=== PATIENT | male | born 2005 | race Caucasian/White ===

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

== ENCOUNTER 2024-08-15 10:46 | Emergency (ER) | payer OTHER ==
[~2024-08-15] VITALS: Ht 182.9 cm; Wt 95.6 kg
[~2024-08-15 10:46] MED LIST changes: +MELO7.5T7 PO
[2024-08-15 12:23] VITALS: BP 144/77; TEMP 97.9
[2024-08-15 12:24] VITALS: PULSE 83; RESP 18; O2SAT 98
--- NOTE | 2024-08-15 14:31 | ED.PDOC ---
History of Present Illness HPI Comments 19-year-old male, with a history of asthma, presents with shortness of breath, subjective fever, generalized body aches, and sore throat, today. Patient endorses on noticing blood in his mucus sputum, this morning, along with onset of other remaining symptoms. He states difficulty breathing being mild as well as reports having red spots on his legs and comp blue coloration to his knees. He reports no recent sick contact or any additional relevant a pertinent history. He denies any chest pain, nausea, vomiting, chills, unexplained weight loss, or other associated symptoms or modifying us at this time. Chief Complaint: Cough Time Seen by MD: 12:00 Primary Care Provider: JEANE Jones Notes: Nurses Notes, Medications, Allergies Allergies: Coded Allergies: Promethazine (Unverified Allergy, Unknown, 11/09/16) Uncoded Allergies: ENVIRONMENTlal (Allergy, Severe, 02/05/23) beans (Allergy, Severe, 02/05/23) Home Meds Active Scripts Meloxicam (Meloxicam) 7.5 Mg Tab, 1 TAB PO DAILY for 7 Days, #7 TAB 0 Refills Prov:DAYSI MEHTA SENIOR POLICY ANALYST 10/13/23 Ibuprofen Micronized (Ibuprofen) 600 Mg Tab, 1 TAB PO Q6HR, #20 TAB As needed for pain Prov:DONAVAN APONTE SENIOR POLICY ANALYST 07/15/23 Methylprednisolone (Medrol Dosepak) 4 Mg Martín, 4 MG PO UD, #21 TAB UAD Prov:VENESSA REZA 02/06/23 Tobramycin Sulfate (Tobrex) [address], 2 DROP OP QID, #5 DROP Prov:VENESSA REZA 02/06/23 Ciprofloxacin HCl (Ophth) (Ciprofloxacin Hydrochlori) 0.3 % Francine, 2 DROP OP QID, #5 ML Prov:VENESSA REZA 02/05/23 Information Source: Patient Mode of Arrival: Ambulatory Severity: Moderate Timing: Hours Duration: Since onset Prehospital treatment: None Past Medical History PAST MEDICAL HISTORY: Asthma Surgical History: Denies all surgeries Family History Family History: Reviewed,noncontributory to illness, Family hx of heart bhumi Social History Smoker: Non-Smoker Alcohol: Denies ETOH Use Drugs: Denies Drug Use Lives In: Home Constitutional: reports: fever EENTM: reports: throat pain Respiratory: reports: cough, hemoptysis, shortness of breath Musculoskeletal: reports: others (Generalized bodyaches) All Other Systems: Reviewed and Negative (Negative unless otherwise stated in HPI or above) Physical Exam General Appearance: No Apparent Distress, Normal HEENT: Normal ENT Inspection, Pharynx Normal, TMs Normal Neck: Full Range of Motion, Non-Tender, Normal, Normal Inspection Respiratory: Chest Non-Tender, Lungs Clear, No Accessory Muscle Use, No Respiratory Distress, Normal Breath Sounds Cardiovascular: No Edema, No JVD, No Murmur, No Gallop, Normal Peripheral Pulses, Regular Rate/Rhythm Breast Exam: Deferred Gastrointestinal: No Organomegaly, Non Tender, No Pulsatile Mass, Normal Bowel Sounds, Soft Genitalia: Deferred Pelvic: Deferred Rectal: Deferred Extremities: No calf tenderness, Normal capillary refill, Normal inspection, Normal range of motion, Non-tender, No pedal edema Musculoskeletal : Apperance: Normal Neurologic: Alert, email marketer II-XII nml as Tested, No Motor Deficits, Normal Affect, Normal Mood, No Sensory Deficits Cerebellar Function: Normal Reflexes: Normal Skin: Dry, Normal Color, Warm Lymphatic: No Adenopathy Was a procedure done? Was a procedure done?: No Differential Dx Considerations may include: Viral syndrome, URI, hemoptysis X-Ray, Labs, Meds, VS Vital Signs Date Time Temp Pulse Resp B/P (MAP) Pulse Ox O2 Delivery O2 Flow Rate FiO2 08/15/24 12:24 83 18 98 Room Air* 0 21 08/15/24 12:23 97.9 82 18 144/77 (99) 98 97.9 08/15/24 11:05 98.9 100 16 144/103 (117) 97 08/15/24 11:05 16 97 Room Air* 0 21 Time of 1ST Reevaluation: 12:15 Reevaluation 1ST: Unchanged Patient Education/Counseling: Diagnosis, Treatment Family Education/Counseling: No Family Present Departure 1 Departure Time of Disposition: 12:28 Impression: Primary Impression: Viral URI with cough Additional Impression: Hemoptysis Disposition: 01 HOME / SELF CARE / HOMELESS Condition: Stable Additional Instructions: Thank you for visiting our Emergency Room. I wish you full and complete recovery. Please follow the following instructions: 1. Take your medication bottles with you to EVERY DOCTOR'S VISIT (including your primary doctor). 2. Please follow up with your primary doctor in 2-3 days or sooner if symptoms do not improve. 3. Please read all the papers given to you at the time of the discharge so that you understand your condition better. 4. Please note that the emergency room visits are focused and not necessarily comprehensive. Therefore, it is possible that some occult medical conditions may go undiagnosed in the ER. 5. The emergency room visits are not and should not be thought of as replacement for regular visits with your primary doctor. 6. Therefore, it is absolutely critical that you follows up with your primary doctor on regular basis to make sure you receives a complete and comprehensive care. 7. I recommended the you take the hospital discharge papers to your primary care physician and other doctors' offices with you. 8. Go to your nearest emergency room if you think your condition gets worse or you think your condition is an emergency. Critical Care Note Critical Care Time?: No Stability Stability form required: No Heart Score Heart Score: Heart Score Response (Comments) Value History N/A 0 EKG N/A 0 Age N/A 0 Risk Factors N/A 0 Troponin N/A 0 Total 0 I personally scribed for DUNG COUCH MD ([email or web address]) on 08/15/24 at 14:31. Electronically submitted by David Garsia [email or web address]). DUNG COUCH MD Aug 15, 2024 14:31
== END 2024-08-15 12:28 | disposition home or self-care (01) ==
LOC: ER 10:46
DX: J06.9 Acute upper respiratory infection, unspecified (principal); B97.89 Other viral agents as the cause of diseases classified elsewhere; R05.9 Cough, unspecified; R04.2 Hemoptysis; J45.909 Unspecified asthma, uncomplicated; Z79.1 Long term (current) use of non-steroidal anti-inflammatories (NSAID); Z79.899 Other long term (current) drug therapy; Z88.8 Allergy status to other drugs, medicaments and biological substances

== ENCOUNTER 2024-08-28 07:37 | Inpatient (IN) | payer OTHER ==
[~2024-08-28] VITALS: Ht 182.9 cm; Wt 94.9 kg
[2024-08-28 08:11] LABS: Urine Bacteria None Seen /hpf (None Seen)
[2024-08-28 08:25] LABS: Urine Blood Negative /uL (Negative); Urine Clarity Turbid (Clear); Urine Color Yellow (Yellow); Urine Mucus MODERATE (None Seen); Urine Protein, UAD TRACE (Negative); Urine Specific Gravity 1.025 (1.001-1.035); Urine Squamous Epithelial Cell FEW /hpf (<5); Urine Urobilinogen Normal (Negative); Urine WBC 1 /hpf (0 - 3)
[2024-08-28] MEDS: IPRATROPIUM BROM 0.5 MG/2.5ML INH SOL NEB ONE (10:02)
[2024-08-28] MEDS: ALBUTEROL SULF 2.5 MG/0.5ML(0.5%) NEB SOLN NEB ONE (10:02)
[2024-08-28] MEDS: methylPREDNISolone SOD SUCC 125 MG/2 ML VL IV ONE (10:30)
--- NOTE | 2024-08-28 10:47 | DVH ---
CLINICAL INFORMATION: 19 years old, Male; shortness of breath. TECHNIQUE: Single AP portable chest radiograph was obtained. COMPARISON: CHEST PORTABLE on DOS: 05/27/20 FINDINGS: Lungs: Clear. Cardiac: Heart size is within normal limits. Pulmonary vasculature: Unremarkable. Mediastinum/renay: Unremarkable. Bones: No acute osseous abnormality identified. Other: No other significant findings. IMPRESSION: No evidence of acute disease in the chest.
--- NOTE | 2024-08-28 10:53 | ED.PDOC ---
History of Present Illness HPI Comments 19 y/o M presents with c/o abdominal and chest pain, nausea, vomiting, dizziness, shortness of breath, and bilateral leg cramping, today. Patient endorses on unprovoked onset of symptoms that has been persisting for the past 4x days. He comments on vomitus being dark brown in appearance, chest pain being intermittent, tight in quality, and localized to his right pectoral area, and his leg cramping localized to his calves. Patient also reports recent hospital visit for "spitting mucus" 2x weeks ago. He informs of no additional relevant or pertinent Hx, such as injuries, sick contact, or travel. He denies having any hematemesis, diarrhea, headache, fever, chills, or other associated symptoms or modifiers at time. Chief Complaint: Urinary Time Seen by MD: 09:30 Primary Care Provider: JEANE Jones Notes: Nurses Notes, Medications, Allergies Allergies: Coded Allergies: Promethazine (Unverified Allergy, Unknown, 11/09/16) Uncoded Allergies: ENVIRONMENTlal (Allergy, Severe, 02/05/23) beans (Allergy, Severe, 02/05/23) Home Meds Active Scripts Meloxicam (Meloxicam) 7.5 Mg Tab, 1 TAB PO DAILY for 7 Days, #7 TAB 0 Refills Prov:DAYSI MEHTA SAW REPAIRER 10/13/23 Ibuprofen Micronized (Ibuprofen) 600 Mg Tab, 1 TAB PO Q6HR, #20 TAB As needed for pain Prov:DONAVAN APONTE SAW REPAIRER 07/15/23 Methylprednisolone (Medrol Dosepak) 4 Mg Martín, 4 MG PO UD, #21 TAB UAD Prov:VENESSA REZA 02/06/23 Tobramycin Sulfate (Tobrex) [address], 2 DROP OP QID, #5 DROP Prov:VENESSA REZA 02/06/23 Ciprofloxacin HCl (Ophth) (Ciprofloxacin Hydrochlori) 0.3 % Francine, 2 DROP OP QID, #5 ML Prov:VENESSA REZA 02/05/23 Information Source: Patient Mode of Arrival: Ambulatory Severity: Moderate Timing: Days Duration: Since onset Prehospital treatment: None Past Medical History PAST MEDICAL HISTORY: Asthma Surgical History: Denies all surgeries Family History Family History: Reviewed,noncontributory to illness, Family hx of heart bhumi Social History Smoker: Non-Smoker Alcohol: Denies ETOH Use Drugs: Denies Drug Use Lives In: Home Respiratory: reports: shortness of breath Gastrointestinal: reports: abdominal pain, nausea, vomiting Neurological: reports: dizziness Musculoskeletal: reports: others (right chest wall pain ) All Other Systems: Reviewed and Negative (negative unless otherwise stated above or in HPI) Physical Exam General Appearance: Moderate Distress HEENT: Normal ENT Inspection, Pharynx Normal, TMs Normal Neck: Full Range of Motion, Non-Tender, Normal, Normal Inspection Respiratory: Wheezing Cardiovascular: No Edema, No JVD, No Murmur, No Gallop, Normal Peripheral Pulses, Regular Rate/Rhythm Breast Exam: Deferred Gastrointestinal: Diffuse, Soft Genitalia: Deferred Pelvic: Deferred Rectal: Deferred Extremities: No calf tenderness, Normal capillary refill, Normal inspection, Normal range of motion, Non-tender, No pedal edema Musculoskeletal : Apperance: Normal Neurologic: Alert, six sigma project manager II-XII nml as Tested, No Motor Deficits, Normal Affect, Normal Mood, No Sensory Deficits Cerebellar Function: Normal Reflexes: Normal Skin: Dry, Normal Color, Warm Peripheral Pulses: 3+ Radial (R), 3+ Radial (L) Lymphatic: No Adenopathy Was a procedure done? Was a procedure done?: No Differential Dx Considerations may include: viral syndrome, musculoskeletal pain angina, costochondritis, pericarditis, gastritis, gastroenteritis, spoiled food, anxiety X-Ray, Labs, Meds, VS Vital Signs Date Time Temp Pulse Resp B/P (MAP) Pulse Ox O2 Delivery O2 Flow Rate FiO2 08/28/24 13:15 97.8 80 18 143/92 (109) 98 97.8 08/28/24 13:15 80 18 98 Room Air 08/28/24 11:58 78 16 100 Room Air 08/28/24 10:47 78 16 131/83 (99) 100 08/28/24 10:06 14 98 Room Air* 0 21 08/28/24 07:48 98.5 88 18 143/71 (95) 96 Lab Test 08/28/24 13:30 08/28/24 10:19 08/28/24 07:45 Range/Units White Blood Count 11.2 H 4.4-10.8 10^3/uL Red Blood Count 5.15 4.5-5.90 10^6/uL Hemoglobin 15.6 13.5-17.5 g/dL Hematocrit 47.0 41.0-53.0 % Mean Corpuscular Volume 91.3 80.0-100.0 fL Mean Corpuscular Hemoglobin 30.2 28.0-32.0 pg Mean Corpuscular Hemoglobin Concent 33.1 32.0-36.0 g/dL Red Cell Distribution Width 13.4 11.8-14.3 % Platelet Count 270 140-450 10^3/uL Mean Platelet Volume 7.7 6.9-10.8 fL Neutrophils (%) (Auto) 94.1 H 37.0-80.0 % Lymphocytes (%) (Auto) 4.9 L 10.0-50.0 % Monocytes (%) (Auto) 0.8 0.0-12.0 % Eosinophils (%) (Auto) 0.1 0.0-7.0 % Basophils (%) (Auto) 0.1 0.0-2.0 % Neutrophils # (Auto) 10.5 H 1.6-8.6 10 ^3/uL Lymphocytes # (Auto) 0.5 0.4-5.4 10 ^3/uL Monocytes # (Auto) 0.1 0-1.3 10 ^3/uL Eosinophils # (Auto) 0 0-0.8 10 ^3/uL Basophils # (Auto) 0 0-0.2 10 ^3/uL Nucleated Red Blood Cells 0.0 % Sodium Level 139 136-145 mmol/L Potassium Level 3.9 3.5-5.1 mmol/L Chloride Level 107 98-107 mmol/L Carbon Dioxide Level 24 20-31 mmol/L Anion Gap 8 5-15 Blood Urea Nitrogen 12 9-23 mg/dL Creatinine 1.04 0.700-1.30 mg/dL Glomerular Filtration Rate Calc 105 >90 mL/min BUN/Creatinine Ratio 11.5 10.0-20.0 Serum Glucose 104 74-106 mg/dL Calcium Level 9.9 8.7-10.4 mg/dL D-Dimer, Quantitative < 0.19 0.0-0.49 mg/L FEU Urine Color Yellow Yellow Urine Clarity Turbid H Clear Urine pH 8.0 5.0-9.0 Urine Specific [place] 1.025 1.001-1.035 Urine Protein Trace H Negative Urine Ketones Negative Negative Urine Blood Negative Negative /uL Urine Nitrite Negative Negative Urine Bilirubin Negative Negative Urine Urobilinogen Normal Negative mg/dL Urine Leukocyte Esterase Negative Negative /uL Urine RBC 1 0 - 3 /hpf Urine WBC 1 0 - 3 /hpf Urine Squamous Epithelial Cells Few <5 /hpf Urine Bacteria None seen None Seen /hpf Urine Mucus Moderate None Seen Urine Glucose Normal Normal mg/dL Current Medications Medications (Trade) Dose Ordered Sig/Jad Route Start Time Stop Time Status Last Admin Albuterol (Ventolin Medneb) 5 mg ONCE ONCE NEB 08/28/24 10:00 08/28/24 10:01 DC 08/28/24 10:02 Methylprednisolone Sodium Succinate (Solu Medrol) 125 mg ONCE ONCE IV 08/28/24 10:00 08/28/24 10:01 DC 08/28/24 10:30 Ipratropium [place] (Atrovent Medneb) 0.5 mg ONCE ONCE NEB 08/28/24 10:00 08/28/24 10:01 DC 08/28/24 10:02 Sodium Chloride 1,000 ml @ 1,000 mls/hr Q1H ONCE IV 08/28/24 12:30 08/28/24 13:29 DC 08/28/24 13:14 Ondansetron HCl (Zofran) 4 mg ONCE ONCE IV 08/28/24 12:30 08/28/24 12:31 DC 08/28/24 13:12 Ceftriaxone Sodium 50 ml @ 100 mls/hr ONCE ONCE IV 08/28/24 12:30 08/28/24 13:26 DC 08/28/24 13:11 Ketorolac Tromethamine (Toradol Injection) 30 mg ONCE ONCE IV 08/28/24 13:15 08/28/24 13:26 DC 08/28/24 13:12 Patient alert. Complaining of chest pain abdominal pain shortness a breath. Vitals stable. Answering all questions. Continues to have abdominal pain. Possible colitis. Establish intravenous access. Was given steroid. Was given breathing treatment. Reviewed his history. Explained to the patient. Continue cardiac monitoring. [facility] [id number] [place] [id number] Ph: [phone] DIAGNOSTIC IMAGING Diagnostic Imaging Report : [id number] Signed PATIENT: FRANKY JUNIOR ACCT: [id number] UNIT: [id number] : 2005 LOC: ER ROOM / BED: / AGE / SEX: 19 / M ADM STATUS: REG ER SERVICE 0948 ORDERING PHYSICIAN: ELMER KENYON MD PROCEDURE(s): CXRP - CHEST PORTABLE REASON: sob ORDER NUMBER(s): [id number], ACCESSION NUMBER(s): [id number] CLINICAL INFORMATION: 19 years old, Male; shortness of breath. TECHNIQUE: Single AP portable chest radiograph was obtained. COMPARISON: CHEST PORTABLE on DOS: 05/27/20 FINDINGS: Lungs: Clear. Cardiac: Heart size is within normal limits. Pulmonary vasculature: Unremarkable. Mediastinum/renay: Unremarkable. Bones: No acute osseous abnormality identified. Other: No other significant findings. IMPRESSION: No evidence of acute disease in the chest. ATED BY: ALEX COSTA DO DICTATED DATE/TIME: 08/28/241044 SIGNED BY: ALEX COSTA DO SIGNED DATE/TIME: 08/28/241044 CC: [place] [id number] Ph: [phone] DIAGNOSTIC IMAGING Diagnostic Imaging Report : [id number] Signed PATIENT: FRANKY JUNIOR ACCT: [id number] UNIT: [id number] : 2005 LOC: ER ROOM / BED: / AGE / SEX: 19 / M ADM STATUS: REG ER SERVICE 1216 ORDERING PHYSICIAN: ELMER KENYON MD PROCEDURE(s): ABPL - CT AB PEL WO CON-NO ORAL OR IV REASON: colitis ORDER NUMBER(s): [id number], ACCESSION NUMBER(s): [id number] Exam: CT CT AB PEL WO CON-NO ORAL OR IV History: colitis Comparison Study: None available at time of dictation. Technique: Multidetector spiral CT of the abdomen and pelvis was performed from lung bases to pubic symphysis. Imaging was performed without intravenous contrast. Coronal and sagittal multiplanar reformats were obtained from the ia data set by the technologist. Radiation Dose : 1. Abdomen/Pelvis: CTDIvol 10.7 mGy, DLP 627 mGy*cm. Findings: Evaluation of vasculature and solid organs is limited due to lack of intravenous contrast use. Lung Bases: Lung bases are clear. Visualized portions of the heart and pericardium are unremarkable. Liver: The liver is normal in size. No focal lesions. Gallbladder and Biliary Tree: The gallbladder is unremarkable No intrahepatic or extrahepatic biliary ductal dilatation. Spleen: Unremarkable Pancreas: The pancreas is grossly unremarkable. Adrenal Glands: Unremarkable Kidneys: Kidneys are unremarkable without calculi or hydronephrosis. GI tract: The stomach is grossly normal in appearance. No evidence of small bowel wall thickening or abnormal dilatation to suggest bowel obstruction. The colon is unremarkable. The appendix is visualized and is normal in caliber. Peritoneum/mesentery/retroperitoneum. No evidence of free intraperitoneal air. No ascites. No evidence of suspicious lymphadenopathy. Abdominal Wall: Unremarkable. Vasculature: The visualized abdominal aorta is normal in size and caliber. Evaluation of abdominal and pelvic vessels is limited due to lack of intravenous contrast. Urinary Bladder: Grossly unremarkable for degree of distention. Pelvic Organs: Unremarkable Musculoskeletal: No aggressive focal bony lesions, acute fractures or dislocation. IMPRESSION: 1. No acute abdominal or pelvic findings. ATED BY: PATRICIA JEAN BAPTISTE MD DICTATED DATE/TIME: 08/28/241335 SIGNED BY: PATRICIA JEAN BAPTISTE MD SIGNED DATE/TIME: 08/28/241335 CC: Time of 1ST Reevaluation: 10:00 Reevaluation 1ST: Unchanged Patient Education/Counseling: Diagnosis, Treatment Family Education/Counseling: No Family Present Additional Information I reviewed the following notes from patient's past medical encounters: ED physician documentation 08/15/24 The following tests were ordered, and results were reviewed by me: D-dimer, UA, CXR I reviewed and agreed with the following test results read by other providers: CXR I discussed treatment and results with medical personnel and: mother Departure 1 Departure Time of Disposition: 12:19 Impression: Primary Impression: Nonspecific colitis Disposition: ADMITTED INPATIENT Admit to: Med Surg Condition: Guarded Critical Care Note Critical Care Time?: No Stability Stability form required: No Heart Score Heart Score: Heart Score Response (Comments) Value History N/A 0 EKG N/A 0 Age N/A 0 Risk Factors N/A 0 Troponin N/A 0 Total 0 I personally scribed for ELMER KENYON MD ([email or web address]) on 08/28/24 at 10:53. Electronically submitted by David Garsia ([email or web address]). I personally scribed for ELMER KENYON MD ([email or web address]) on 08/28/24 at 17:04. Electronically submitted by David Garsia ([email or web address]). ELMER KENYON MD Aug 28, 2024 10:53
[2024-08-28] MEDS: MORPHINE SULFATE 4 MG/ML SYR/VIAL IV ONE (13:05)
[2024-08-28] MEDS: cefTRIAXone 1GM/50ML D5W 50 ML IV ONE (13:11)
[2024-08-28] MEDS: KETOROLAC TROMETH 30 MG/ML 1ML VIAL IV ONE (13:12)
[2024-08-28] MEDS: ONDANSETRON HCL 4 MG/2 ML VIAL IV ONE (13:12)
[2024-08-28] MEDS: SODIUM CHLORIDE 0.9% 1,000 ML IV ONE (13:14)
--- NOTE | 2024-08-28 13:39 | DVH ---
Exam: CT CT AB PEL WO CON-NO ORAL OR IV History: colitis Comparison Study: None available at time of dictation. Technique: Multidetector spiral CT of the abdomen and pelvis was performed from lung bases to pubic s ymphysis. Imaging was performed without intravenous contrast. Coronal and sagittal multiplanar refor mats were obtained from the axial data set by the technologist. Radiation Dose : 1. Abdomen/Pelvis: CTDIvol 10.7 mGy, DLP 627 mGy*cm. Findings: Evaluation of vasculature and solid organs is limited due to lack of intravenous contrast use. Lung Bases: Lung bases are clear. Visualized portions of the heart and pericardium are unremarkable. Liver: The liver is normal in size. No focal lesions. Gallbladder and Biliary Tree: The gallbladder is unremarkable No intrahepatic or extrahepatic bilia ry ductal dilatation. Spleen: Unremarkable Pancreas: The pancreas is grossly unremarkable. Adrenal Glands: Unremarkable Kidneys: Kidneys are unremarkable without calculi or hydronephrosis. GI tract: The stomach is grossly normal in appearance. No evidence of small bowel wall thickening or abnormal dilatation to suggest bowel obstruction. The colon is unremarkable. The appendix is visual ized and is normal in caliber. Peritoneum/mesentery/retroperitoneum. No evidence of free intraperitoneal air. No ascites. No evidenc e of suspicious lymphadenopathy. Abdominal Wall: Unremarkable. Vasculature: The visualized abdominal aorta is normal in size and caliber. Evaluation of abdominal a nd pelvic vessels is limited due to lack of intravenous contrast. Urinary Bladder: Grossly unremarkable for degree of distention. Pelvic Organs: Unremarkable Musculoskeletal: No aggressive focal bony lesions, acute fractures or dislocation. IMPRESSION: 1. No acute abdominal or pelvic findings.
[2024-08-28 13:55] LABS: Basophils # (auto) 0 10 ^3/uL (0-0.2); Basophils % (auto) 0.1 % (0.0-2.0); Eosinophils # (auto) 0 10 ^3/uL (0-0.8); Eosinophils % (auto) 0.1 % (0.0-7.0); Hemoglobin 15.6 g/dL (13.5-17.5); Lymphocytes # (auto) 0.5 10 ^3/uL (0.4-5.4); Lymphocytes % (auto) 4.9 % (10.0-50.0); Mean Corpuscular Hemoglobin 30.2 pg (28.0-32.0); Mean Corpuscular Hgb Conc. 33.1 g/dL (32.0-36.0); Mean Corpuscular Volume 91.3 fL (80.0-100.0); Monocytes # (auto) 0.1 10 ^3/uL (0-1.3); Monocytes % (auto) 0.8 % (0.0-12.0); Neutrophils # (auto) 10.5 10 ^3/uL (1.6-8.6); Neutrophils % (auto) 94.1 % (37.0-80.0); Platelet Count (auto) 270 10^3/uL (140-450); Red Blood Cells 5.15 10^6/uL (4.5-5.90); Red Cell Distribution Width 13.4 % (11.8-14.3); White Blood Cell 11.2 10^3/uL (4.4-10.8)
[2024-08-28 14:02] LABS: Potassium 3.9 mmol/L (3.5-5.1); Sodium 139 mmol/L (136-145)
[2024-08-28 14:03] LABS: Anion Gap 8 (5-15); Carbon Dioxide 24 mmol/L (20-31)
[2024-08-28 14:04] LABS: Calcium 9.9 mg/dL (8.7-10.4)
[2024-08-28 14:07] LABS: Chloride 107 mmol/L (98-107)
[2024-08-28 14:08] LABS: BUN/Creatinine Ratio 11.5 (10.0-20.0); Blood Urea Nitrogen 12 mg/dL (9-23); Glucose 104 mg/dL (74-106)
[2024-08-28] MEDS ORDERED: MORPHINE SULFATE INJ 2 MG/ml SYRG IV PRN (15:00)
--- NOTE | 2024-08-28 15:00 | DVHHP2 ---
History of Present Illness Reason for Visit: Abdominal pain History of Present Illness This 19-year-old male patient with past medical history of asthma, IBS, presented in the ED with a chief complaint of abdominal pain. The patient reports right upper quadrant abdominal pain with nausea and vomiting, unable to tolerate oral intake without vomiting started four days ago and has progressed for which prompted the patient to visit the emergency department. Past Medical History As stated in HPI Past Surgical History Denies Family History Reviewed, non-contributory to the management of this case. Past Social History The patient lives at home, denies smoking, alcohol or illicit drugs abuse. Review of Systems Constitutional: Yes: Malaise; No: Fever, Chills, Sweats, Weakness, Other Eyes: No: Pain, Vision change, Conjunctivae inflammation, Eyelid inflammation, Other, Redness ENT: No: Ear pain, Ear discharge, Nose pain, Nose discharge, Nose congestion, Mouth pain, Mouth swelling, Throat pain, Throat swelling, Other Respiratory: No: Cough, Dry, Shortness of breath, SOB with excertion, Wheezing, Hemoptysis, Pleuritic Pain, Sputum, Wheezing, Other Cardiovascular: No: Chest Pain, Palpitations, Orthopnea, Paroxysmal Noc. Dyspnea, Edema, Lt Headedness, Other Gastrointestinal: Nausea, Vomiting, Abdominal Pain; No: Diarrhea, Constipation, Melena, Hematochezia, Other Genitourinary: No Dysuria, No Frequency, No Incontinence, No Hematuria, No Retention, No Other Musculoskeletal: No: other, neck pain, shoulder pain, arm pain, back pain, hand pain, leg pain, foot pain Skin: No: Rash, Lesions, Jaundice, Bruising, Other Neurological: No: Weakness, Numbness, Incoordination, Change in speech, Confusion, Seizures, Other Allergies: Coded Allergies: Promethazine (Unverified Allergy, Unknown, 11/09/16) Uncoded Allergies: ENVIRONMENTlal (Allergy, Severe, 02/05/23) beans (Allergy, Severe, 02/05/23) Exam Vital Signs Vital Signs Date Time Temp Pulse Resp B/P (MAP) Pulse Ox O2 Delivery O2 Flow Rate FiO2 08/28/24 13:15 97.8 80 18 143/92 (109) 98 97.8 08/28/24 13:15 Room Air 08/28/24 10:06 0 21 General Appearance: Alert, Oriented X3, Cooperative, mild distress HEENT: Atraumatic, PERRLA, EOMI, Mucous membr. moist/pink Respiratory: Clear to auscultation, Normal air movement Cardiovascular: Regular rate, Normal S1, Normal S2 Abdominal: Normal bowel sounds, Soft, Other (Tenderness to right upper quadrant) Extremities: No clubbing, No cyanosis, No edema, Normal pulses, No tende rness/swelling Skin: No rashes, No breakdown, No significant lesion Neuro: Normal gait, Normal speech, Sensation intact Psych/Mental Status: Mental status NL Labs/Xrays Labs Test 08/28/24 13:30 08/28/24 10:19 08/28/24 07:45 Range/Units White Blood Count 11.2 H 4.4-10.8 10^3/uL Red Blood Count 5.15 4.5-5.90 10^6/uL Hemoglobin 15.6 13.5-17.5 g/dL Hematocrit 47.0 41.0-53.0 % Mean Corpuscular Volume 91.3 80.0-100.0 fL Mean Corpuscular Hemoglobin 30.2 28.0-32.0 pg Mean Corpuscular Hemoglobin Concent 33.1 32.0-36.0 g/dL Red Cell Distribution Width 13.4 11.8-14.3 % Platelet Count 270 140-450 10^3/uL Mean Platelet Volume 7.7 6.9-10.8 fL Neutrophils (%) (Auto) 94.1 H 37.0-80.0 % Lymphocytes (%) (Auto) 4.9 L 10.0-50.0 % Monocytes (%) (Auto) 0.8 0.0-12.0 % Eosinophils (%) (Auto) 0.1 0.0-7.0 % Basophils (%) (Auto) 0.1 0.0-2.0 % Neutrophils # (Auto) 10.5 H 1.6-8.6 10 ^3/uL Lymphocytes # (Auto) 0.5 0.4-5.4 10 ^3/uL Monocytes # (Auto) 0.1 0-1.3 10 ^3/uL Eosinophils # (Auto) 0 0-0.8 10 ^3/uL Basophils # (Auto) 0 0-0.2 10 ^3/uL Nucleated Red Blood Cells 0.0 % Sodium Level 139 136-145 mmol/L Potassium Level 3.9 3.5-5.1 mmol/L Chloride Level 107 98-107 mmol/L Carbon Dioxide Level 24 20-31 mmol/L Anion Gap 8 5-15 Blood Urea Nitrogen 12 9-23 mg/dL Creatinine 1.04 0.700-1.30 mg/dL Glomerular Filtration Rate Calc 105 >90 mL/min BUN/Creatinine Ratio 11.5 10.0-20.0 Serum Glucose 104 74-106 mg/dL Calcium Level 9.9 8.7-10.4 mg/dL D-Dimer, Quantitative < 0.19 0.0-0.49 mg/L FEU Urine Color Yellow Yellow Urine Clarity Turbid H Clear Urine pH 8.0 5.0-9.0 Urine Specific [place] 1.025 1.001-1.035 Urine Protein Trace H Negative Urine Ketones Negative Negative Urine Blood Negative Negative /uL Urine Nitrite Negative Negative Urine Bilirubin Negative Negative Urine Urobilinogen Normal Negative mg/dL Urine Leukocyte Esterase Negative Negative /uL Urine RBC 1 0 - 3 /hpf Urine WBC 1 0 - 3 /hpf Urine Squamous Epithelial Cells Few <5 /hpf Urine Bacteria None seen None Seen /hpf Urine Mucus Moderate None Seen Urine Glucose Normal Normal mg/dL PROCEDURE(s): ABPL - CT AB PEL WO CON-NO ORAL OR IV REASON: colitis ORDER NUMBER(s): [id number], ACCESSION NUMBER(s): [id number] Exam: CT CT AB PEL WO CON-NO ORAL OR IV History: colitis Comparison Study: None available at time of dictation. Technique: Multidetector spiral CT of the abdomen and pelvis was performed from lung bases to pubic symphysis. Imaging was performed without intravenous contrast. Coronal and sagittal multiplanar reformats were obtained from the axial data set by the technologist. Radiation Dose : 1. Abdomen/Pelvis: CTDIvol 10.7 mGy, DLP 627 mGy*cm. Findings: Evaluation of vasculature and solid organs is limited due to lack of intravenous contrast use. Lung Bases: Lung bases are clear. Visualized portions of the heart and p ericardium are unremarkable. Liver: The liver is normal in size. No focal lesions. Gallbladder and Biliary Tree: The gallbladder is unremarkable No intrahepatic or extrahepatic biliary ductal dilatation. Spleen: Unremarkable Pancreas: The pancreas is grossly unremarkable. Adrenal Glands: Unremarkable Kidneys: Kidneys are unremarkable without calculi or hydronephrosis. GI tract: The stomach is grossly normal in appearance. No evidence of small bowel wall thickening or abnormal dilatation to suggest bowel obstruction. The colon is unremarkable. The appendix is visualized and is normal in caliber. Peritoneum/mesentery/retroperitoneum. No evidence of free intraperitoneal air. No ascites. No evidence of suspicious lymphadenopathy. Abdominal Wall: Unremarkable. Vasculature: The visualized abdominal aorta is normal in size and caliber. Evaluation of abdominal and pelvic vessels is limited due to lack of intravenous contrast. Urinary Bladder: Grossly unremarkable for degree of distention. Pelvic Organs: Unremarkable Musculoskeletal: No aggressive focal bony lesions, acute fractures or dislocation. IMPRESSION: 1. No acute abdominal or pelvic findings. Assessment/Plan Assessment/Plan # acute abdominal pain # Rule out cholecystitis # nausea vomiting # hx of IBS Admit to medical unit Empiric antibiotics metronidazole Ultrasound gallbladder pending IV fluid Antiemetics # asthma Med neb prn # obesity Lifestyle modification counseled, with diet, regular exercise Medical plan discussed with patient Plan discussed with: Patient My Orders Orders - HOLLIS REN Procedure Category Date Status Time Admit ADMIT 08/28/24 Verified 14:58 Code Status CODE 08/28/24 Verified 14:58 0.9% Ns 1000 Ml PHA 08/28/24 Verified 15:00 Hydrocodone-Acet PHA 08/28/24 Verified 5/325mg Tab (Erskine 15:00 Ondansetron Hcl PHA 08/28/24 Verified (Zofran) 15:00 Complete Blood Count LAB 08/29/24 Verified 04:00 Comprehensive LAB 08/29/24 Verified Metabolic Panel 04:00 Condition: Fair DEBBIE 08/28/24 Verified 14:58 Acetaminophen Tablet PHA 08/28/24 Verified (Tylenol Tablet) 15:00 Clear Liq Diet DIET 08/28/24 Verified Dinner Morphine Sulfate PHA 08/28/24 Verified Injection 15:00 Date of Service: Aug 28, 2024 Billing Provider: HOLLIS REN Common Visit Codes: [id number] INP/OBS CARE (HIGH) HOLLIS REN Aug 28, 2024 15:00
[2024-08-28] MEDS: SODIUM CHLORIDE 0.9% 1,000 ML IV SCH (16:03)
[2024-08-28 16:30] VITALS: BP 143/92; PULSE 80; RESP 18; TEMP 97.8; O2SAT 98
[2024-08-28] MEDS ORDERED: ALBUTEROL SULF 2.5 MG/0.5ML(0.5%) NEB SOLN NEB PRN (16:30)
[2024-08-28] MEDS: ONDANSETRON HCL 4 MG/2 ML VIAL IV PRN (17:43)
--- NOTE | 2024-08-28 17:48 | DVH ---
Procedure: US GALLBLADDER Study Date and Requested Time: 08/28/2024 04:28 PM History: Right upper quadrant abdominal pain Comparison: CT abdomen and pelvis 08/28/2024 Technique: Multiple high resolution carcamo-scale images obtained of the right upper quadrant of the abd omen with color Doppler for evaluation of blood flow and vascularity as indicated. Findings: Liver normal in size, measuring 16 cm in length, with increased echogenicity and normal contours. No evidence of focal hepatic lesions, intrahepatic or extrahepatic ductal dilatation. Common bile duct m easures 0.4 cm in diameter. Sludge within the gallbladder. Otherwise gallbladder is unremarkable with no evidence of abnormal wa ll thickening, gallstones, or pericholecystic fluid. Negative sonographic Person's sign. Pancreas only partially visualized due to overlying bowel gas but is otherwise unremarkable. Right kidney measures 11.4 cm in length, with normal contours, echotexture, and cortical thickness. N o evidence of hydronephrosis, calculi, cystic or solid renal lesions. Partially visualized inferior vena cava unremarkable. Impression: Increased hepatic echogenicity which may be from hepatic disease/hepatic steatosis. Sludge within the gallbladder. Otherwise, the gallbladder is unremarkable.
[2024-08-28] MEDS: HYDROcodone-ACET 5/325MG TAB PO PRN (18:20)
[2024-08-28 21:00] VITALS: BP 139/80; PULSE 86; RESP 18; TEMP 97.6; O2SAT 96
[2024-08-28] MEDS: metroNIDAZOLE 500MG/100ML 100 ML IV SCH (22:30)
[2024-08-28] MEDS: ACETAMINOPHEN 325 MG TAB PO PRN (22:34)
[2024-08-28] MEDS ORDERED: MONT10TA23 PO (23:11)
[2024-08-28] MEDS ORDERED: OLOP0.2S14 OP (23:11)
[2024-08-28] MEDS ORDERED: ALBU108A5 INH (23:11)
[2024-08-28] MEDS ORDERED: LORA-483 PO (23:11)
[2024-08-29] VITALS (10 sets, daily range): BP systolic 111–127; BP diastolic 58–68; PULSE 62–73; RESP 16–20; TEMP 97.9–98.8; O2SAT 96–100
[2024-08-29 04:49] LABS: Basophils # (auto) 0 10 ^3/uL (0-0.2); Eosinophils # (auto) 0 10 ^3/uL (0-0.8); Eosinophils % (auto) 0.2 % (0.0-7.0); Hematocrit 44.3 % (41.0-53.0); Hemoglobin 14.9 g/dL (13.5-17.5); Lymphocytes # (auto) 1.8 10 ^3/uL (0.4-5.4); Lymphocytes % (auto) 12.7 % (10.0-50.0); Mean Corpuscular Hemoglobin 30.6 pg (28.0-32.0); Mean Corpuscular Hgb Conc. 33.5 g/dL (32.0-36.0); Mean Corpuscular Volume 91.2 fL (80.0-100.0); Monocytes # (auto) 1.1 10 ^3/uL (0-1.3); Monocytes % (auto) 7.5 % (0.0-12.0); Neutrophils # (auto) 11.4 10 ^3/uL (1.6-8.6); Neutrophils % (auto) 79.6 % (37.0-80.0); Platelet Count (auto) 275 10^3/uL (140-450); Red Blood Cells 4.86 10^6/uL (4.5-5.90); Red Cell Distribution Width 13.3 % (11.8-14.3); White Blood Cell 14.3 10^3/uL (4.4-10.8)
[2024-08-29 05:11] LABS: Alanine Aminotransferase 22 U/L (7-40); Albumin 4.6 g/dL (3.2-4.8); Alkaline Phosphatase 81 U/L (46-116); Anion Gap 10 (5-15); BUN/Creatinine Ratio 22.9 (10.0-20.0); Blood Urea Nitrogen 22 mg/dL (9-23); Calcium 10.4 mg/dL (8.7-10.4); Carbon Dioxide 23 mmol/L (20-31); Chloride 107 mmol/L (98-107); Glucose 100 mg/dL (74-106); Sodium 140 mmol/L (136-145)
[2024-08-29 05:12] LABS: Bilirubin, Total 0.7 mg/dL (0.2-1.0); Total Protein 7.5 g/dL (5.7-8.2)
[2024-08-29 05:22] LABS: Aspartate Aminotransferase 9 U/L (13-40)
--- NOTE | 2024-08-29 11:12 | DVHPN2 ---
Subjective Patient continues to report abdominal pain. Also states he has poor oral intake for the past several days, and continues to have nausea and vomiting. Reviewed: Care Plan, H&P, Labs, Medications Changes from previous H/P or p: No Changes General: Per HPI Eyes: No Pain, No Vision change, No Conjunctivae inflammation, No Eyelid inflammation, No Other, No Redness ENT: No Ear pain, No Ear discharge, No Nose pain, No Nose discharge, No Nose congestion, No Mouth pain, No Mouth swelling, No Throat pain, No Throat swelling, No Other Cardiovascular: No Chest Pain, No Palpitations, No Orthopnea, No Paroxysmal Noc. Dyspnea, No Edema, No Lt Headedness, No Other Respiratory: No Cough, No Dry, No Shortness of breath, No SOB with excertion, No Wheezing, No Hemoptysis, No Pleuritic Pain, No Sputum, No Other Gastrointestinal: Nausea, Vomiting, Abdominal Pain; No Diarrhea, No Constipation, No Melena, No Hematochezia, No Other Genitourinary: No Dysuria, No Frequency, No Incontinence, No Hematuria, No Retention, No Other Musculoskeletal: No other, No neck pain, No shoulder pain, No arm pain, No back pain, No hand pain, No leg pain, No foot pain Skin: No Rash, No Lesions, No Jaundice, No Bruising, No Other Objective Vitals Vital Signs Date Time Temp Pulse Resp B/P (MAP) Pulse Ox O2 Delivery O2 Flow Rate FiO2 08/29/24 10:00 98 Room Air* 0 21 08/29/24 08:10 98.1 73 16 113/58 (76) 98.1 Intake/Output Intake and Output 08/29/24 07:00 Intake Total 1550 ml Balance 1550 ml Intake IV Total 1550 ml General Appearance: Alert, Oriented X3, Cooperative, No acute distress HEENT: Atraumatic, PERRLA Lungs: Clear to auscultation, Normal air movement Cardiovascular: Normal S1, Normal S2 Abdomen: Other (Pain and left lower quadrant with light palpation.) Genitourinary: No Apparent Abnormalities Musculoskeletal: Normal sensory function, Normal motor function Neuro: Normal speech Psych/Mental Status: Mental status NL, Mood NL Medications Current Medications Medications Dose Ordered Sig/Jad Route Start Time Stop Time Status Last Admin Dose Admin Sodium Chloride 1,000 ml @ 100 mls/hr Q10H IV 08/28/24 15:00 08/28/24 21:46 100 MLS/HR Acetaminophen/ Hydrocodone Bitart 1 tab Q4HP PRN PO 08/28/24 15:00 08/28/24 18:20 1 TAB Ondansetron HCl 4 mg Q4HP PRN IV 08/28/24 15:00 08/29/24 10:56 4 MG Acetaminophen 650 mg Q6HP PRN PO 08/28/24 15:00 08/28/24 22:34 650 MG Morphine Sulfate 2 mg Q4HPRN PRN IV 08/28/24 15:00 Cancel Metronidazole 100 ml @ 100 mls/hr Q8HR IV 08/28/24 22:00 08/29/24 05:59 100 MLS/HR Albuterol 2.5 mg Q4HPRN PRN NEB 08/28/24 16:30 Laboratory Results Laboratory Tests 08/29/24 04:28 Chemistry Test 08/28/24 13:30 08/29/24 04:28 Calcium Level 9.9 mg/dL (8.7-10.4) 10.4 mg/dL (8.7-10.4) Albumin 4.6 g/dL (3.2-4.8) Total Protein 7.5 g/dL (5.7-8.2) LFT Test 08/29/24 04:28 Alanine Aminotransferase (ALT) 22 U/L (7-40) Alkaline Phosphatase 81 U/L (46-116) Aspartate Amino Transferase (AST) 9 U/L (13-40) L Total Bilirubin 0.7 mg/dL (0.2-1.0) Urinalysis Test 08/28/24 07:45 Urine Color Yellow (Yellow) Urine Clarity Turbid (Clear) H Urine pH 8.0 (5.0-9.0) Urine Specific [place] 1.025 (1.001-1.035) Urine Protein Trace (Negative) H Urine Ketones Negative (Negative) Urine Blood Negative /uL (Negative) Urine Nitrite Negative (Negative) Urine Bilirubin Negative (Negative) Urine Urobilinogen Normal mg/dL (Negative) Urine Leukocyte Esterase Negative /uL (Negative) Urine RBC 1 /hpf (0 - 3) Urine WBC 1 /hpf (0 - 3) Urine Squamous Epithelial Cells Few /hpf (<5) Urine Bacteria None seen /hpf (None Seen) Urine Mucus Moderate (None Seen) Urine Glucose Normal mg/dL (Normal) Labs and/or images reviewed: Labs reviewed by me, Image(s) reviewed by me Assessment/Plan Assessment/Plan Impression: -Intractable nausea and vomiting -abdominal pain -leukocytosis, rule out sepsis -history of IBS Plan: -change IV fluids to D5 NS at 100 mL/hr -antiemetics -UDS -continue Flagyl -continue clear liquid diet Total time spent with patient discussing and formulating plan of care: 35 minutes. This medical document was created using an electronic medical record system with [employer] dictation system. Although this document has been carefully reviewed, there may still be some phonetic and typographical errors. These areas are purely typographical due to imperfections of the software programs, and do not reflect any compromise in the patient's medical care. Plan discussed with: Patient, Other (RN) My Orders Orders - KENDRA BRADY NP Procedure Category Date Status Time Erythrocyte LAB 08/29/24 Verified Sedimentation Rate 11:07 C-Reactive Protein LAB 08/29/24 Verified 11:07 D5w/Sod Chlo 0.9% Ns PHA 08/29/24 Verified 11:15 Metoclopramide Tablet PHA 08/29/24 Verified (Reglan Tablet) 11:30 Date of Service: Aug 29, 2024 Billing Provider: KENDRA BRADY NP Common Visit Codes: [id number] INP/OBS CARE(HIGH) KENDRA BRADY NP Aug 29, 2024 11:12
[2024-08-29] MEDS: METOCLOPRAMIDE HCL 10 MG TAB PO SCH (12:14)
[2024-08-29 12:48] LABS: Erythrocyte Sedimentation Rate 4 mm/hr (0-20)
[2024-08-29] MEDS: D5W/SOD CHLO 0.9% 1,000 ML IV SCH (13:38)
[2024-08-29 18:03] LABS: Opiate Scree,Urine Neg (NEGATIVE)
[2024-08-29 18:06] LABS: Amphetamine Screen, Urine Neg (NEGATIVE); Barbiturate Scree,Urine Neg (NEGATIVE); Benzodiazephine Screen, Urine Neg (NEGATIVE); Cannabinoid Screen, Urine Neg (NEGATIVE); Cocaine Screen, Urine Neg (NEGATIVE); Phencyclidine Screen, Urine Neg (NEGATIVE)
[2024-08-30 05:03] VITALS: BP 116/81; PULSE 88; RESP 16; TEMP 97.8; O2SAT 95
[2024-08-30 07:07] VITALS: O2SAT 96
[2024-08-30 09:00] VITALS: BP 101/61; PULSE 75; RESP 18; TEMP 97.8; O2SAT 96
[2024-08-30 09:31] LABS: Basophils # (auto) 0 10 ^3/uL (0-0.2); Basophils % (auto) 0.5 % (0.0-2.0); Eosinophils # (auto) 0.1 10 ^3/uL (0-0.8); Eosinophils % (auto) 1.5 % (0.0-7.0); Hematocrit 41.1 % (41.0-53.0); Hemoglobin 14.1 g/dL (13.5-17.5); Lymphocytes # (auto) 1.2 10 ^3/uL (0.4-5.4); Lymphocytes % (auto) 22.9 % (10.0-50.0); Mean Corpuscular Hemoglobin 31.4 pg (28.0-32.0); Mean Corpuscular Hgb Conc. 34.3 g/dL (32.0-36.0); Mean Corpuscular Volume 91.4 fL (80.0-100.0); Monocytes # (auto) 0.5 10 ^3/uL (0-1.3); Monocytes % (auto) 9.6 % (0.0-12.0); Neutrophils # (auto) 3.6 10 ^3/uL (1.6-8.6); Neutrophils % (auto) 65.5 % (37.0-80.0); Nucleated Red Blood Cells % 0.1 %; Platelet Count (auto) 242 10^3/uL (140-450); Red Cell Distribution Width 13.5 % (11.8-14.3); White Blood Cell 5.4 10^3/uL (4.4-10.8)
--- NOTE | 2024-08-30 09:49 | DVHDS2 ---
Discharge Summary Date of Admission Aug 28, 2024 at 14:58 Date of Discharge: Aug 30, 2024 Admitting Diagnosis Abdominal pain Labs/Diagnostic Data: Laboratory Results Test 08/30/24 08:53 08/29/24 16:30 08/29/24 04:28 08/28/24 10:19 White Blood Count 5.4 10^3/uL (4.4-10.8) Red Blood Count 4.50 10^6/uL (4.5-5.90) Hemoglobin 14.1 g/dL (13.5-17.5) Hematocrit 41.1 % (41.0-53.0) Mean Corpuscular Volume 91.4 fL (80.0-100.0) Mean Corpuscular Hemoglobin 31.4 pg (28.0-32.0) Mean Corpuscular Hemoglobin Concent 34.3 g/dL (32.0-36.0) Red Cell Distribution Width 13.5 % (11.8-14.3) Platelet Count 242 10^3/uL (140-450) Mean Platelet Volume 7.5 fL (6.9-10.8) Neutrophils (%) (Auto) 65.5 % (37.0-80.0) Lymphocytes (%) (Auto) 22.9 % (10.0-50.0) Monocytes (%) (Auto) 9.6 % (0.0-12.0) Eosinophils (%) (Auto) 1.5 % (0.0-7.0) Basophils (%) (Auto) 0.5 % (0.0-2.0) Neutrophils # (Auto) 3.6 10 ^3/uL (1.6-8.6) Lymphocytes # (Auto) 1.2 10 ^3/uL (0.4-5.4) Monocytes # (Auto) 0.5 10 ^3/uL (0-1.3) Eosinophils # (Auto) 0.1 10 ^3/uL (0-0.8) Basophils # (Auto) 0 10 ^3/uL (0-0.2) Nucleated Red Blood Cells 0.1 % Urine Opiates Screen Neg (NEGATIVE) Urine Fentanyl Screen Neg (NEGATIVE) Urine Barbiturates Screen Neg (NEGATIVE) Urine Phencyclidine Screen Neg (NEGATIVE) Urine Amphetamines Screen Neg (NEGATIVE) Urine Benzodiazepines Screen Neg (NEGATIVE) Urine Cocaine Screen Neg (NEGATIVE) Urine Cannabinoids Screen Neg (NEGATIVE) Erythrocyte Sedimentation Rate 4 mm/hr (0-20) Sodium Level 140 mmol/L (136-145) Potassium Level 4.0 mmol/L (3.5-5.1) Chloride Level 107 mmol/L (98-107) Carbon Dioxide Level 23 mmol/L (20-31) Anion Gap 10 (5-15) Blood Urea Nitrogen 22 mg/dL (9-23) Creatinine 0.96 mg/dL (0.700-1.30) Glomerular Filtration Rate Calc 116 mL/min (>90) BUN/Creatinine Ratio 22.9 (10.0-20.0) Serum Glucose 100 mg/dL (74-106) Calcium Level 10.4 mg/dL (8.7-10.4) Total Bilirubin 0.7 mg/dL (0.2-1.0) Aspartate Amino Transferase (AST) 9 U/L (13-40) Alanine Aminotransferase (ALT) 22 U/L (7-40) Alkaline Phosphatase 81 U/L (46-116) C-Reactive Protein High Sensitivity 0.08 mg/dL (<1.0) Total Protein 7.5 g/dL (5.7-8.2) Albumin 4.6 g/dL (3.2-4.8) D-Dimer, Quantitative < 0.19 mg/L FEU (0.0-0.49) Test 08/28/24 07:45 Urine Color Yellow (Yellow) Urine Clarity Turbid (Clear) Urine pH 8.0 (5.0-9.0) Urine Specific [place] 1.025 (1.001-1.035) Urine Protein Trace (Negative) Urine Ketones Negative (Negative) Urine Blood Negative /uL (Negative) Urine Nitrite Negative (Negative) Urine Bilirubin Negative (Negative) Urine Urobilinogen Normal mg/dL (Negative) Urine Leukocyte Esterase Negative /uL (Negative) Urine RBC 1 /hpf (0 - 3) Urine WBC 1 /hpf (0 - 3) Urine Squamous Epithelial Cells Few /hpf (<5) Urine Bacteria None seen /hpf (None Seen) Urine Mucus Moderate (None Seen) Urine Glucose Normal mg/dL (Normal) Other Laboratory Tests 08/30/24 08:53 08/29/24 04:28 Brief Hx & Hospital Course: History of Present Illness This 19-year-old male patient with past medical history of asthma, IBS, presented in the ED with a chief complaint of abdominal pain. The patient reports right upper quadrant abdominal pain with nausea and vomiting, unable to tolerate oral intake without vomiting started four days ago and has progressed for which prompted the patient to visit the emergency department. Course of hospitalization: The patient was treated with supportive measures including IV hydration, and IV antibiotic therapy. Repeat CBC reveals no leukocytosis. Vital signs are stable. Patient has had his diet advanced to regular without any further abdominal pain. Inflammatory markers are negative. Patient also had CT scan of the abdomen and pelvis as well as gallbladder ultrasound, all unremarkable. Patient will be discharged home and be continued all previous home medications. He was instructed to follow up with his primary process development engineer regarding his IBS if he was further abdominal pain. Physical examination General: Alert and Oriented x3. No acute distress. Well-nourished. Eyes: EOMI. Anicteric. HENT: Moist mucous membranes. Lungs: Clear to auscultation bilaterally. No accessory muscle use. Cardiovascular: Regular rate and rhythm. No murmur. No JVD. Abdomen: Soft, non-tender and non-distended. No palpable masses. Extremities: No edema. Non-tender. Skin: No rashes or lesions. Warm. Neurologic: No focal neurological deficits. CN II-XII grossly intact, but not individually tested. Psychiatric: Cooperative. Appropriate mood and affect. Total time spent with patient discussing and formulating plan of care: 35 minutes. This medical document was created using an electronic medical record system with [employer] dictation system. Although this document has been carefully reviewed, there may still be some phonetic and typographical errors. These areas are purely typographical due to imperfections of the software programs, and do not reflect any compromise in the patient's medical care. Condition at Discharge: Good Final Diagnosis/Problems List Abdominal pain Secondary Diagnosis: Asthma IBS Sirs without organ dysfunction Discharge Disposition: Home Discharge Instruct/Medications Diet: Regular Activity: No Restrictions, As Tolerated Follow Up/Referral: PCP in 1-2 weeks 36 Discharge Statement: "Patient was advised to return to the ER or call 911 if any headaches, dizziness, shortness of breath, chest pain, abdominal pain, bleeding, fevers, or worsening of medical condition. Patient was counseled about treatment plan, medications, possible side effects, patientverbalized understanding. All questions were answered to the best of my ability. This discharge took greater then 30 minutes in planning, reviewing documentation, counseling the patient, and discussing with other team members." ASSESSMENT ASSESSMENT Assessment Abdominal pain Date of Service: Aug 30, 2024 Billing Provider: KENDRA BRADY NP Common Visit Codes: [id number] DISCH DAY >30min KENDRA BRADY NP Aug 30, 2024 09:49
[2024-08-30 13:00] VITALS: BP 110/59; PULSE 75; RESP 16; TEMP 98.3; O2SAT 96
== END 2024-08-30 15:56 | disposition home or self-care (01) | DRG 254 ==
LOC: ER 07:37 → OVERFLOW 14:58 → WEST WING 08-29 23:08
PROVIDERS: ADMIT Registered Nurse; ATTEND Nurse Practitioner Acute Care
DX: K58.9 Irritable bowel syndrome, unspecified (principal); R65.10 Systemic inflammatory response syndrome (SIRS) of non-infectious origin without acute organ dysfunction; E66.9 Obesity, unspecified; J45.909 Unspecified asthma, uncomplicated; Z88.8 Allergy status to other drugs, medicaments and biological substances; Z79.1 Long term (current) use of non-steroidal anti-inflammatories (NSAID); Z79.899 Other long term (current) drug therapy; Z91.018 Allergy to other foods; Z68.28 Body mass index [BMI] 28.0-28.9, adult
CPT/HCPCS: 36415; 71045; 74176; 76705; 80048; 80053; 80307; 81001; 85025; 85379; 85652; 86141; 87040; 94640; G0378; J1885; J2405; J3490

== ENCOUNTER 2024-11-15 09:48 | Inpatient (IN) | payer OTHER ==
[~2024-11-15] VITALS: Ht 182.9 cm; Wt 84.0 kg
[~2024-11-15 09:48] MED LIST changes: +ALBU108A5 INH; +LORA-483 PO; +MONT10TA23 PO; +OLOP0.2S14 OP
[2024-11-15] MEDS: SODIUM CHLORIDE 0.9% 1,000 ML IVB ONE (10:30)
[2024-11-15 10:46] LABS: Basophils # (auto) 0 10 ^3/uL (0-0.2); Basophils % (auto) 0.5 % (0.0-2.0); Eosinophils # (auto) 0.1 10 ^3/uL (0-0.8); Eosinophils % (auto) 2.2 % (0.0-7.0); Hematocrit 46.4 % (41.0-53.0); Hemoglobin 16.3 g/dL (13.5-17.5); Lymphocytes # (auto) 1.4 10 ^3/uL (0.4-5.4); Lymphocytes % (auto) 32.2 % (10.0-50.0); Mean Corpuscular Hemoglobin 31.6 pg (28.0-32.0); Mean Corpuscular Volume 90.2 fL (80.0-100.0); Monocytes # (auto) 0.5 10 ^3/uL (0-1.3); Monocytes % (auto) 10.8 % (0.0-12.0); Neutrophils # (auto) 2.4 10 ^3/uL (1.6-8.6); Neutrophils % (auto) 54.3 % (37.0-80.0); Nucleated Red Blood Cells % 0.1 %; Platelet Count (auto) 216 10^3/uL (140-450); Red Blood Cells 5.15 10^6/uL (4.5-5.90); Red Cell Distribution Width 13.7 % (11.8-14.3); White Blood Cell 4.5 10^3/uL (4.4-10.8)
--- NOTE | 2024-11-15 10:46 | ED.PDOC ---
GI ASSESSMENT HPI Comments 19 y/o M, with PMHX of IBD nad Asthma presents to the ED for CC of abdominal pain. Patient states, that he has been experiencing RLQ abdominal pain with associated symptoms of nausea, vomiting, and diarrhea x1day. Patient relays, that he was previously sick with the common cold before symptoms began. Patient states, that he has experienced similar symptoms in the past and was admitted to [facility] with Acute Abdominal Pain in July 2024. Patient denies fever, chills, body-aches, melena, or weakness. No other symptoms or modifying factors at this time. Chief Complaint: Abdominal Pain Time Seen by MD: 10:20 Primary Care Provider: JEANE Reviewed Notes: Nurses Notes, Medications, Allergies Allergies: Coded Allergies: Morphine (Verified Allergy, Unknown, 08/28/24) Promethazine (Unverified Allergy, Unknown, 11/09/16) Uncoded Allergies: ENVIRONMENTlal (Allergy, Severe, 02/05/23) beans (Allergy, Severe, 02/05/23) Home Meds Active Scripts Meloxicam (Meloxicam) 7.5 Mg Tab, 1 TAB PO DAILY for 7 Days, #7 TAB 0 Refills Prov:DAYSI MEHTA [employer]PORATE WELLNESS COORDINATOR 10/13/23 Ibuprofen Micronized (Ibuprofen) 600 Mg Tab, 1 TAB PO Q6HR, #20 TAB As needed for pain Prov:DONAVAN APONTE [employer]PORATE WELLNESS COORDINATOR 07/15/23 Methylprednisolone (Medrol Dosepak) 4 Mg Martín, 4 MG PO UD, #21 TAB UAD Prov:VENESSA REZA 02/06/23 Tobramycin Sulfate (Tobrex) [address], 2 DROP OP QID, #5 DROP Prov:VENESSA REZA 02/06/23 Ciprofloxacin HCl (Ophth) (Ciprofloxacin Hydrochlori) 0.3 % Francine, 2 DROP OP QID, #5 ML Prov:VENESSA REZA 02/05/23 Reported Medications Olopatadine HCl (Olopatadine Hydrochloride) 0.2 % Francine, OP DAILYPRN, ML 08/28/24 Montelukast Sodium (Singulair) 10 Mg Tab, 25 MG PO BID, TAB 08/28/24 Loratadine (CLARITIN TABLET) 10 Mg Tb, 1 TAB PO DAILYPRN 08/28/24 Albuterol Sulfate (Albuterol Sulfate Hfa) 108 Mcg/Act Aer, 2 PUFF INH Q6HPRN PRN for SHORTNESS OF BREATH 08/28/24 Information Source: Patient Mode of Arrival: Ambulatory Timing: Days Duration: Since onset Prehospital treatment: None Quality: None Vomitus: Watery Stool: Watery Severity: Moderate Recent: None Recent Hx of: None Pain Location: RLQ Modifying Factors: Nothing Associated sign and symptoms: Nausea, Vomiting, Diarrhea Past Medical History PAST MEDICAL HISTORY: Asthma Surgical History: Denies all surgeries Family History Family History: Reviewed,noncontributory to illness, Family hx of heart bhumi Social History Smoker: Non-Smoker Alcohol: Denies ETOH Use Drugs: Denies Drug Use Lives In: Home Constitutional: denies: chills, diaphoresis, fatigue, fever, malaise, sweats, weakness, others EENTM: denies: blurred vision, double vision, ear bleeding, ear discharge, ear drainage, ear pain, ear ringing, eye pain, eye redness, hearing loss, mouth pain, mouth swelling, nasal discharge, nose bleeding, nose congestion, nose pain, photophobia, tearing, throat pain, throat swelling, voice changes, others Respiratory: denies: cough, hemoptysis, orthopnea, SOB at rest, shortness of breath, SOB with excertion, stridor, wheezing, others Cardiovascular: denies: chest pain, dizzy spells, diaphoresis, Dyspnea on exertion, edema, irregular heart beat, left arm pain, lightheadedness, palpitations, PND, syncope, others Gastrointestinal: reports: abdominal pain, diarrhea, nausea, vomiting; denies: abdomen distended, blood streaked bowels, constipated, dysphagia, difficulty swallowing, hematemesis, melena, poor appetite, poor fluid intake, rectal bleeding, rectal pain, others Genitourinary: denies: burning, dysuria, flank pain, frequency, hematuria, incontinence, penile discharge, penile sore, pain, testicle pain, testicle swelling, urgency, others Neurological: denies: dizziness, fainting, headache, left sided numbness, left sided weakness, numbness, paresthesia, pre-existing deficit, right sided numbne ss, right sided weakness, seizure, speech problems, tingling, tremors, weakness, others Musculoskeletal: denies: back pain, gout, joint pain, joint swelling, muscle pain, muscle stiffness, neck pain, others Integumetry: denies: bruises, change in color, change in hair/nails, dryness, laceration, lesions, lumps, rash, wounds, others Allergic/Immunocompromised: denies: Difficulty Healing, Frequent Infections, Hives, Itching, others Hematologic/Lymphatic: denies: anemia, blood clots, easy bleeding, easy bruising, swollen glands, others Endocrine: denies: excessive hunger, excessive sweating, excessive thirst, excessive urination, flushing, intolerance to cold, intolerance to heat, unexplained weight gain, unexplained weight loss, others Psychiatric: denies: anxiety, bipolar disorder, depression, hopeless, panic disorder, schizophrenia, sleepless, suicidal, others All Other Systems: Reviewed and Negative Physical Exam General Appearance: Moderate Distress HEENT: Normal ENT Inspection, Pharynx Normal, TMs Normal Neck: Full Range of Motion, Non-Tender, Normal, Normal Inspection Respiratory: Chest Non-Tender, Lungs Clear, No Accessory Muscle Use, No Respiratory Distress, Normal Breath Sounds Cardiovascular: No Edema, No JVD, No Murmur, No Gallop, Normal Peripheral Pulses, Regular Rate/Rhythm Breast Exam: Deferred Gastrointestinal: No Organomegaly, No Pulsatile Mass, Normal Bowel Sounds, RLQ, Soft, Tenderness Genitalia: Deferred Pelvic: Deferred Rectal: Deferred Extremities: No calf tenderness, Normal capillary refill, Normal inspection, Normal range of motion, Non-tender, No pedal edema Musculoskeletal : Apperance: Normal Neurologic: Alert, transplant worker II-XII nml as Tested, No Motor Deficits, Normal Affect, Normal Mood, No Sensory Deficits Cerebellar Function: Normal Reflexes: Normal Skin: Dry, Normal Color, Warm Lymphatic: No Adenopathy Was a procedure done? Was a procedure done?: No GI differential Dx Differential Diagnosis: Gastritis/PUD, Gastroenteritis, Electrolyte Imbalance, Food Poisoning, Bacterial, Viral X-Ray, Labs, Meds, VS Vital Signs Date Time Temp Pulse Resp B/P (MAP) Pulse Ox O2 Delivery O2 Flow Rate FiO2 11/15/24 10:46 Room Air* 0 21 11/15/24 10:46 97.5 87 16 140/79 (99) 94 97.5 11/15/24 10:04 97.7 92 16 122/76 (91) 95 97.7 Lab Test 11/15/24 10:33 11/15/24 10:00 Range/Units White Blood Count 4.5 4.4-10.8 10^3/uL Red Blood Count 5.15 4.5-5.90 10^6/uL Hemoglobin 16.3 13.5-17.5 g/dL Hematocrit 46.4 41.0-53.0 % Mean Corpuscular Volume 90.2 80.0-100.0 fL Mean Corpuscular Hemoglobin 31.6 28.0-32.0 pg Mean Corpuscular Hemoglobin Concent 35.0 32.0-36.0 g/dL Red Cell Distribution Width 13.7 11.8-14.3 % Platelet Count 216 140-450 10^3/uL Mean Platelet Volume 7.1 6.9-10.8 fL Neutrophils (%) (Auto) 54.3 37.0-80.0 % Lymphocytes (%) (Auto) 32.2 10.0-50.0 % Monocytes (%) (Auto) 10.8 0.0-12.0 % Eosinophils (%) (Auto) 2.2 0.0-7.0 % Basophils (%) (Auto) 0.5 0.0-2.0 % Neutrophils # (Auto) 2.4 1.6-8.6 10 ^3/uL Lymphocytes # (Auto) 1.4 0.4-5.4 10 ^3/uL Monocytes # (Auto) 0.5 0-1.3 10 ^3/uL Eosinophils # (Auto) 0.1 0-0.8 10 ^3/uL Basophils # (Auto) 0 0-0.2 10 ^3/uL Nucleated Red Blood Cells 0.1 % Sodium Level 141 136-145 mmol/L Potassium Level 4.4 3.5-5.1 mmol/L Chloride Level 107 98-107 mmol/L Carbon Dioxide Level 26 20-31 mmol/L Anion Gap 8 5-15 Blood Urea Nitrogen 13 9-23 mg/dL Creatinine 1.07 0.700-1.30 mg/dL Glomerular Filtration Rate Calc 102 >90 mL/min BUN/Creatinine Ratio 12.1 10.0-20.0 Serum Glucose 90 74-106 mg/dL Calcium Level 9.7 8.7-10.4 mg/dL Total Bilirubin 0.5 0.2-1.0 mg/dL Aspartate Amino Transferase (AST) 18 13-40 U/L Alanine Aminotransferase (ALT) 32 7-40 U/L Alkaline Phosphatase 78 46-116 U/L Total Protein 8.0 5.7-8.2 g/dL Albumin 4.9 H 3.2-4.8 g/dL Urine Color Yellow Yellow Urine Clarity Clear Clear Urine pH 6.0 5.0-9.0 Urine Specific [employer] 1.037 H 1.001-1.035 Urine Protein Negative Negative Urine Ketones Negative Negative Urine Blood Trace H Negative /uL Urine Nitrite Negative Negative Urine Bilirubin Negative Negative Urine Urobilinogen Normal Negative mg/dL Urine Leukocyte Esterase Negative Negative /uL Urine RBC 3 0 - 3 /hpf Urine Microscopic WBC 1 0-3 /HPF Urine Squamous Epithelial Cells None seen <5 /hpf Urine Bacteria Few H None Seen /hpf Urine Mucus Few None Seen Urine Glucose Normal Normal mg/dL Current Medications Medications (Trade) Dose Ordered Sig/Jad Route Start Time Stop Time Status Last Admin Ondansetron HCl (Zofran) 4 mg ONCE ONCE IV 11/15/24 10:30 11/15/24 10:31 DC 11/15/24 11:04 Sodium Chloride 1,000 ml @ 1,000 mls/hr Q1H ONCE IVB 11/15/24 10:30 11/15/24 11:29 DC 11/15/24 10:30 Acetaminophen/ Hydrocodone Bitart (Dresser 5/325MG Tab) 1 tab ONCE ONCE PO 11/15/24 11:00 11/15/24 11:01 DC 11/15/24 10:58 CT scan of the abdomen and pelvis shows: IMPRESSION: 1. Ascending colitis that could be infectious or inflammatory. No evidence of terminal ileitis. The appendix is normal. Mild mesenteric adenitis noted in the right lower quadrant. The patient was given an IV Hep-Lock The patient was given Zofran 4 mg IV push for the nausea The patient was given Dresser for the pain The patient was bolused with normal saline at 1 L bolus The urine test is negative The patient's CBC is within normal limits The chemistry panel is within normal limits The patient was still having intractable abdominal pain The patient was being admitted with a diagnosis of ascending colitis The patient understands and agrees with the management. Images Reviewed?: Images reviewed and evaluated by me Time of 1ST Reevaluation: 10:50 Reevaluation 1ST: Unchanged Patient Education/Counseling: Diagnosis, Treatment, Prognosis Family Education/Counseling: No Family Present Departure 1 Departure Time of Disposition: 12:39 Impression: Primary Impression: Intractable abdominal pain Additional Impression: Colitis Disposition: ADMITTED INPATIENT Admit to: Med Surg Condition: Fair Critical Care Note Critical Care Time?: No Stability Stability form required: Yes Unstable for transfer: ED Physician Assesment (Clinical assesment) Heart Score Heart Score: Heart Score Response (Comments) Value History N/A 0 EKG N/A 0 Age N/A 0 Risk Factors N/A 0 Troponin N/A 0 Total 0 I personally scribed for EDUARD NAVA MD ([email or web address]) on 11/15/24 at 10:46. Electronically submitted by Belia Beaver ([email or web address]). I personally scribed for EDUARD NAVA MD ([email or web address]) on 11/15/24 at 10:52. Electronically submitted by Belia Beaver [email or web address]). EDUARD NAVA MD Nov 15, 2024 10:46
[2024-11-15] MEDS: HYDROmorphone HCL 2 MG/ML VL/or syr IV ONE (10:53)
[2024-11-15] MEDS: HYDROcodone-ACET 5/325MG TAB PO ONE (10:58)
[2024-11-15] MEDS: ONDANSETRON HCL 4 MG/2 ML VIAL IV ONE (11:04)
[2024-11-15 11:07] LABS: Alanine Aminotransferase 32 U/L (7-40); Alkaline Phosphatase 78 U/L (46-116); Anion Gap 8 (5-15); Aspartate Aminotransferase 18 U/L (13-40); BUN/Creatinine Ratio 12.1 (10.0-20.0); Bilirubin, Total 0.5 mg/dL (0.2-1.0); Blood Urea Nitrogen 13 mg/dL (9-23); Calcium 9.7 mg/dL (8.7-10.4); Carbon Dioxide 26 mmol/L (20-31); Glucose 90 mg/dL (74-106); Potassium 4.4 mmol/L (3.5-5.1); Sodium 141 mmol/L (136-145)
[2024-11-15 11:10] LABS: Albumin 4.9 g/dL (3.2-4.8); Chloride 107 mmol/L (98-107)
[2024-11-15 11:56] LABS: Urine Bacteria FEW /hpf (None Seen); Urine Blood TRACE /uL (Negative); Urine Clarity Clear (Clear); Urine Color Yellow (Yellow); Urine Mucus FEW (None Seen); Urine Protein, UAD Negative (Negative); Urine Specific Gravity 1.037 (1.001-1.035); Urine Squamous Epithelial Cell None Seen /hpf (<5); Urine Urobilinogen Normal (Negative); Urine WBC 1 /HPF (0-3)
--- NOTE | 2024-11-15 12:32 | DVH ---
Procedure: CT CT AB PEL WITH IV CON ONLY 11/15/2024 11:30 AM Indication: pain Comparison Study: None Technique: Axial images were obtained and reformatted in coronal and sagittal planes. All CT scans at this medical facility are performed using dose modulation techniques as appropriate to a performed e xam including the following: Automated exposure control was utilized; adjustment of the MA and/or KV according to patient size; and use of iterative reconstruction technique. CT Dose: CTDI volume is 9 m Gy. Dose-length product is 604 mGy*cm FINDINGS: Lower Chest: Unremarkable. Hepatobiliary: Unremarkable. Spleen: Mildly enlarged, 14.7 cm in craniocaudal. No focal lesion. Pancreas: Unremarkable. Adrenal Glands: Unremarkable. tract: The kidneys are normal in size bilaterally without hydronephrosis or nephrolithiasis. The u rinary bladder is unremarkable. GI tract: The stomach is grossly normal in appearance. No evidence of small bowel obstruction. Circum ferential mural thickening of the ascending colon with mild pericolonic inflammation subcentimeter me senteric lymph nodes. The appendix is normal. Lymphatics: No mesenteric, retroperitoneal or periportal lymphadenopathy. Vasculature: The abdominal aorta is normal in in caliber. Pelvic Organs: Unremarkable Bones/soft tissues: No acute abnormality. Other: None. IMPRESSION: 1. Ascending colitis that could be infectious or inflammatory. No evidence of terminal ileitis. The a ppendix is normal. Mild mesenteric adenitis noted in the right lower quadrant.
[2024-11-15] MEDS ORDERED: DOCUSATE SOD 100 MG CAP PO PRN (15:00)
[2024-11-15] MEDS ORDERED: ONDANSETRON HCL 4 MG/2 ML VIAL IV PRN (15:00)
[2024-11-15 15:17] VITALS: BP 140/79; PULSE 87; RESP 16; TEMP 97.5; O2SAT 94
[2024-11-15 15:22] VITALS: O2SAT 94
--- NOTE | 2024-11-15 16:21 | DVHHP2 ---
History of Present Illness Reason for Visit: Intractable abdominal pain History of Present Illness The patient is a 19-year-old male with past medical history of asthma who presented to [facility] ED with complaint of abdominal pain. Patient reports symptoms progressively get worse with right lower quadrant abdominal, associated nausea, vomiting, diarrhea, getting worse today that prompted this visit. Patient was seen and evaluated in the ED, laboratory data shows WBC 4.5, platelets 2 one six, sodium 141, potassium 4.4, BUN 13, creatinine 1.07, GFR 102, glucose 90, albumin 4.9. Abdomen/pelvic CT revealing ascending colitis that could be infectious inflammatory, no evidence of terminal ileitis. Patient was started on IV antibiotic regimen Flagyl, given IV Dilaudid 0.5 mg x 1, please see medication orders section in the computer. On my assessment, patient denied chest pain, no headache, no dizziness, abdominal pain, nausea, or vomiting at this moment, no fever, no chills. Patient was admitted for further evaluation and medical management. Past Medical History Asthma Past Surgical History Denies all surgeries Family History Reviewed, noncontributory to the management of this case. Past Social History The patient lives at home, denies smoking, alcohol or illicit drugs abuse. Review of Systems Constitutional: No: Fever, Chills, Sweats, Weakness, Malaise, Other Eyes: No: Pain, Vision change, Conjunctivae inflammation, Eyelid inflammation, Other, Redness ENT: No: Ear pain, Ear discharge, Nose pain, Nose discharge, Nose congestion, Mouth pain, Mouth swelling, Throat pain, Throat swelling, Other Respiratory: No: Cough, Dry, Shortness of breath, SOB with excertion, Wheezing, Hemoptysis, Pleuritic Pain, Sputum, Wheezing, Other Cardiovascular: No: Chest Pain, Palpitations, Orthopnea, Paroxysmal Noc. Dyspnea, Edema, Lt Headedness, Other Gastrointestinal: Nausea, Vomiting, Abdominal Pain, Diarrhea; No: Constipation, Melena, Hematochezia, Other Genitourinary: No Dysuria, No Frequency, No Incontinence, No Hematuria, No Retention, No Other Musculoskeletal: No: other, neck pain, shoulder pain, arm pain, back pain, hand pain, leg pain, foot pain Skin: No: Rash, Lesions, Jaundice, Bruising, Other Neurological: No: Weakness, Numbness, Incoordination, Change in speech, Confusion, Seizures, Other Allergies: Coded Allergies: Morphine (Verified Allergy, Unknown, 08/28/24) Promethazine (Unverified Allergy, Unknown, 11/09/16) Uncoded Allergies: ENVIRONMENTlal (Allergy, Severe, 02/05/23) beans (Allergy, Severe, 02/05/23) Medications Current Medications Medications Dose Ordered Sig/Jad Route Start Time Stop Time Status Last Admin Dose Admin Metronidazole 100 ml @ 100 mls/hr Q8HR IV 11/15/24 22:00 Sodium Chloride 10 ml Q8HR IV 11/15/24 22:00 Ondansetron HCl 4 mg Q4HP PRN IV 11/15/24 15:00 Docusate Sodium 100 mg BIDPRN PRN PO 11/15/24 15:00 Acetaminophen 650 mg Q6HP PRN PO 11/15/24 15:00 Acetaminophen/ Hydrocodone Bitart 1 tab Q4HPRN PRN PO 11/15/24 15:00 Albuterol 2.5 mg Q4HPRN PRN NEB 11/15/24 15:00 Exam Vital Signs Vital Signs Date Time Temp Pulse Resp B/P (MAP) Pulse Ox O2 Delivery O2 Flow Rate FiO2 11/15/24 15:22 94 Room Air 11/15/24 15:22 0 21 11/15/24 15:17 97.5 87 16 140/79 97.5 General Appearance: Alert, Oriented X3, Cooperative, No acute distress HEENT: Atraumatic, PERRLA, EOMI, Mucous membr. moist/pink Respiratory: Clear to auscultation, Normal air movement Cardiovascular: Regular rate, Normal S1, Normal S2, No murmurs Abdominal: Normal bowel sounds, Soft, No hepatospenomegaly, No masses, Other (Reports tenderness) Extremities: No clubbing, No cyanosis, No edema, Normal pulses, No tenderness/swelling Skin: No rashes, No breakdown, No significant lesion Neuro: Normal gait, Normal speech, Strength at 5/5 X4 ext, Normal tone, Sensation intact, Cranial nerves 3-12 NL, Reflexes 2+ Psych/Mental Status: Mental status NL, Mood NL Labs/Xrays Labs Test 11/15/24 10:33 11/15/24 10:00 Range/Units White Blood Count 4.5 4.4-10.8 10^3/uL Red Blood Count 5.15 4.5-5.90 10^6/uL Hemoglobin 16.3 13.5-17.5 g/dL Hematocrit 46.4 41.0-53.0 % Mean Corpuscular Volume 90.2 80.0-100.0 fL Mean Corpuscular Hemoglobin 31.6 28.0-32.0 pg Mean Corpuscular Hemoglobin Concent 35.0 32.0-36.0 g/dL Red Cell Distribution Width 13.7 11.8-14.3 % Platelet Count 216 140-450 10^3/uL Mean Platelet Volume 7.1 6.9-10.8 fL Neutrophils (%) (Auto) 54.3 37.0-80.0 % Lymphocytes (%) (Auto) 32.2 10.0-50.0 % Monocytes (%) (Auto) 10.8 0.0-12.0 % Eosinophils (%) (Auto) 2.2 0.0-7.0 % Basophils (%) (Auto) 0.5 0.0-2.0 % Neutrophils # (Auto) 2.4 1.6-8.6 10 ^3/uL Lymphocytes # (Auto) 1.4 0.4-5.4 10 ^3/uL Monocytes # (Auto) 0.5 0-1.3 10 ^3/uL Eosinophils # (Auto) 0.1 0-0.8 10 ^3/uL Basophils # (Auto) 0 0-0.2 10 ^3/uL Nucleated Red Blood Cells 0.1 % Sodium Level 141 136-145 mmol/L Potassium Level 4.4 3.5-5.1 mmol/L Chloride Level 107 98-107 mmol/L Carbon Dioxide Level 26 20-31 mmol/L Anion Gap 8 5-15 Blood Urea Nitrogen 13 9-23 mg/dL Creatinine 1.07 0.700-1.30 mg/dL Glomerular Filtration Rate Calc 102 >90 mL/min BUN/Creatinine Ratio 12.1 10.0-20.0 Serum Glucose 90 74-106 mg/dL Calcium Level 9.7 8.7-10.4 mg/dL Total Bilirubin 0.5 0.2-1.0 mg/dL Aspartate Amino Transferase (AST) 18 13-40 U/L Alanine Aminotransferase (ALT) 32 7-40 U/L Alkaline Phosphatase 78 46-116 U/L Total Protein 8.0 5.7-8.2 g/dL Albumin 4.9 H 3.2-4.8 g/dL Urine Color Yellow Yellow Urine Clarity Clear Clear Urine pH 6.0 5.0-9.0 Urine Specific [employer] 1.037 H 1.001-1.035 Urine Protein Negative Negative Urine Ketones Negative Negative Urine Blood Trace H Negative /uL Urine Nitrite Negative Negative Urine Bilirubin Negative Negative Urine Urobilinogen Normal Negative mg/dL Urine Leukocyte Esterase Negative Negative /uL Urine RBC 3 0 - 3 /hpf Urine Microscopic WBC 1 0-3 /HPF Urine Squamous Epithelial Cells None seen <5 /hpf Urine Bacteria Few H None Seen /hpf Urine Mucus Few None Seen Urine Glucose Normal Normal mg/dL PATIENT: FRANKY JUNIOR ACCT: [id number] UNIT: [id number] : 2005 LOC: ER ROOM / BED: / AGE / SEX: 19 / M ADM STATUS: REG ER SERVICE 1022 ORDERING PHYSICIAN: EDUARD NAVA MD PROCEDURE(s): ABPLIV - CT AB PEL WITH IV CON ONLY REASON: pain ORDER NUMBER(s): [id number], ACCESSION NUMBER(s): [id number] Procedure: CT CT AB PEL WITH IV CON ONLY 11/15/2024 11:30 AM Indication: pain Comparison Study: None Technique: Axial images were obtained and reformatted in coronal and sagittal planes. All CT scans at this medical facility are performed using dose modulation techniques as appropriate to a performed exam including the following: Automated exposure control was utilized; adjustment of the MA and/or KV according to patient size; and use of iterative reconstruction technique. CT Dose: CTDI volume is 9 mGy. Dose-length product is 604 mGy*cm FINDINGS: Lower Chest: Unremarkable. Hepatobiliary: Unremarkable. Spleen: Mildly enlarged, 14.7 cm in craniocaudal. No focal lesion. Pancreas: Unremarkable. Adrenal Glands: Unremarkable. tract: The kidneys are normal in size bilaterally without hydronephrosis or nephrolithiasis. The urinary bladder is unremarkable. GI tract: The stomach is grossly normal in appearance. No evidence of small bowel obstruction. Circumferential mural thickening of the ascending colon with mild pericolonic inflammation subcentimeter mesenteric lymph nodes. The appendix is normal. Lymphatics: No mesenteric, retroperitoneal or periportal lymphadenopathy. Vasculature: The abdominal aorta is normal in in caliber. Pelvic Organs: Unremarkable Bones/soft tissues: No acute abnormality. Other: None. IMPRESSION: 1. Ascending colitis that could be infectious or inflammatory. No evidence of terminal ileitis. The appendix is normal. Mild mesenteric adenitis noted in the right lower quadrant. Assessment/Plan Assessment/Plan Intractable abdominal pain Colitis Intractable nausea and vomiting Plan 1. Admit to med surge unit 2. Breathing treatment 3. Pain control management 4. IV antibiotic management 5. Management of fluids and electrolytes 6. Consultation for hospitalist 7. Diagnostic test abdomen/pelvis CT 8. DVT prophylaxis -on SCDs 9. Repeat labs CBC, CMP in a.m. 10. Home medication reviewed and reconciled 11. Continue with current medical management 12. Treatment plan discussed with patient and RN. Patient verbalized understanding. Plan discussed with: Patient, Other (RN) My Orders Orders - ANTHONY WOODARD DNP Procedure Category Date Status Time Metronidazole PHA 11/15/24 In Process 500mg/100ml (Flagyl 22:00 Allergies DEBBIE 11/15/24 In Process 14:54 Code Status CODE 11/15/24 Transmitted 14:54 Sodium Chloride Lock PHA 11/15/24 In Process (Saline Lock Ns) 22:00 Oxygen Per Hour RT 11/15/24 Transmitted 14:54 Ondansetron Hcl PHA 11/15/24 In Process (Zofran) 15:00 Docusate Sodium PHA 11/15/24 In Process Capsule (Colace 15:00 Complete Blood Count LAB 11/16/24 Verified 04:00 Comprehensive LAB 11/16/24 Verified Metabolic Panel 04:00 Condition: Serious DEBBIE 11/15/24 In Process 14:54 Acetaminophen Tablet PHA 11/15/24 In Process (Tylenol Tablet) 15:00 Clear Liq Diet DIET 11/15/24 Transmitted Dinner Bedrest With Bathroom DEBBIE 11/15/24 In Process Privileg 14:54 Sequential DEBBIE 11/15/24 In Process Compression Device Hydrocodone-Acet PHA 11/15/24 In Process 5/325mg Tab ([place]by 15:00 Albuterol Medneb PHA 11/15/24 In Process (Ventolin Medneb) 15:00 Admit ADMIT 11/15/24 Verified 16:19 Nitroglycerin PHA 11/15/24 Verified Sublingual (Ntrostat 16:30 Morphine Sulfate PHA 11/15/24 Verified Injection 16:30 Notify Md Of Changes DEBBIE 11/15/24 Verified From Base 16:19 Emergency Dysrhythmia DEBBIE 11/15/24 Verified Protocol 16:19 Oxygen By Nasal RT 11/15/24 Verified Cannula 16:19 Problem List: (1) Intractable abdominal pain (2) Colitis (3) Intractable nausea and vomiting Date of Service: Nov 15, 2024 Billing Provider: ANTHONY WOODARD DNP Common Visit Codes: 06940-[id number] INP/OBS CARE (HIGH) ANTHONY WOODARD DNP Nov 15, 2024 16:21
[2024-11-15] MEDS ORDERED: NITROGLYCERIN 0.4 MG SL TAB SL PRN (16:30)
[2024-11-15] MEDS ORDERED: MORPHINE SULFATE INJ 2 MG/ml SYRG IV PRN (16:30)
[2024-11-15] MEDS: metroNIDAZOLE 500MG/100ML 100 ML IV ONE (18:09)
[2024-11-15] MEDS: ACETAMINOPHEN 325 MG TAB PO PRN (18:14)
[2024-11-15 22:03] VITALS: O2SAT 95
[2024-11-15] MEDS: SODIUM CHLOR 0.9% PF (SALINE LOCK) 10ML VIAL/SYR IV SCH (22:49)
[2024-11-15] MEDS: metroNIDAZOLE 500MG/100ML 100 ML IV SCH (22:49)
[2024-11-16] VITALS (9 sets, daily range): BP systolic 112–115; BP diastolic 62–67; PULSE 63–99; RESP 16–20; TEMP 97.6–98.2; O2SAT 94–99
[2024-11-16 07:11] LABS: Alanine Aminotransferase 26 U/L (7-40); Albumin 4.5 g/dL (3.2-4.8); Alkaline Phosphatase 69 U/L (46-116); Anion Gap 6 (5-15); Aspartate Aminotransferase 13 U/L (13-40); Bilirubin, Total 0.7 mg/dL (0.2-1.0); Blood Urea Nitrogen 15 mg/dL (9-23); Calcium 9.7 mg/dL (8.7-10.4); Carbon Dioxide 28 mmol/L (20-31); Chloride 106 mmol/L (98-107); Glucose 86 mg/dL (74-106); Potassium 4.5 mmol/L (3.5-5.1); Sodium 140 mmol/L (136-145); Total Protein 7.3 g/dL (5.7-8.2)
[2024-11-16 07:35] LABS: Basophils # (auto) 0 10 ^3/uL (0-0.2); Basophils % (auto) 0.1 % (0.0-2.0); Eosinophils # (auto) 0.2 10 ^3/uL (0-0.8); Eosinophils % (auto) 3.5 % (0.0-7.0); Hematocrit 44.4 % (41.0-53.0); Hemoglobin 14.9 g/dL (13.5-17.5); Lymphocytes # (auto) 1.5 10 ^3/uL (0.4-5.4); Lymphocytes % (auto) 30.9 % (10.0-50.0); Mean Corpuscular Hemoglobin 30.5 pg (28.0-32.0); Mean Corpuscular Hgb Conc. 33.7 g/dL (32.0-36.0); Mean Corpuscular Volume 90.5 fL (80.0-100.0); Monocytes # (auto) 0.6 10 ^3/uL (0-1.3); Monocytes % (auto) 11.5 % (0.0-12.0); Neutrophils # (auto) 2.7 10 ^3/uL (1.6-8.6); Nucleated Red Blood Cells % 0.1 %; Platelet Count (auto) 193 10^3/uL (140-450); Red Cell Distribution Width 13.7 % (11.8-14.3)
[2024-11-16] MEDS: ALBUTEROL SULF 2.5 MG/0.5ML(0.5%) NEB SOLN NEB PRN (11:45)
--- NOTE | 2024-11-16 11:47 | DVHPN2 ---
Reviewed: Care Plan, H&P, Labs, Medications, Previous Orders, Radiology Changes from previous H/P or p: No Changes Eyes: No Pain, No Vision change, No Conjunctivae inflammation, No Eyelid inflammation, No Other, No Redness ENT: No Ear pain, No Ear discharge, No Nose pain, No Nose discharge, No Nose congestion, No Mouth pain, No Mouth swelling, No Throat pain, No Throat swelling, No Other Cardiovascular: No Chest Pain, No Palpitations, No Orthopnea, No Paroxysmal Noc. Dyspnea, No Edema, No Lt Headedness, No Other Respiratory: No Cough, No Dry, No Shortness of breath, No SOB with excertion, No Wheezing, No Hemoptysis, No Pleuritic Pain, No Sputum, No Other Gastrointestinal: Nausea, Vomiting, Abdominal Pain, Diarrhea; No Constipation, No Melena, No Hematochezia, No Other Genitourinary: No Dysuria, No Frequency, No Incontinence, No Hematuria, No Retention, No Other Musculoskeletal: No other, No neck pain, No shoulder pain, No arm pain, No back pain, No hand pain, No leg pain, No foot pain Skin: No Rash, No Lesions, No Jaundice, No Bruising, No Other Objective Vitals Vital Signs Date Time Temp Pulse Resp B/P (MAP) Pulse Ox O2 Delivery O2 Flow Rate FiO2 11/16/24 11:39 74 18 99 11/16/24 11:33 Room Air 0.0 11/16/24 11:33 21 11/16/24 05:05 97.8 113/67 (82) 97.8 Intake/Output Intake and Output 11/16/24 07:00 Intake Total 100 ml Balance 100 ml Intake IV Total 100 ml # Voids 1 Medications Current Medications Medications Dose Ordered Sig/Jad Route Start Time Stop Time Status Last Admin Dose Admin Metronidazole 100 ml @ 100 mls/hr Q8HR IV 11/15/24 22:00 11/16/24 06:19 100 MLS/HR Sodium Chloride 10 ml Q8HR IV 11/15/24 22:00 11/16/24 06:19 10 ML Ondansetron HCl 4 mg Q4HP PRN IV 11/15/24 15:00 Docusate Sodium 100 mg BIDPRN PRN PO 11/15/24 15:00 Acetaminophen 650 mg Q6HP PRN PO 11/15/24 15:00 11/15/24 18:14 650 MG Acetaminophen/ Hydrocodone Bitart 1 tab Q4HPRN PRN PO 11/15/24 15:00 Albuterol 2.5 mg Q4HPRN PRN NEB 11/15/24 15:00 11/16/24 11:45 2.5 MG Nitroglycerin 0.4 mg Q5MINP PRN SL 11/15/24 16:30 Morphine Sulfate 2 mg Q30M PRN IV 11/15/24 16:30 Hold Ceftriaxone Sodium 50 ml @ 100 mls/hr DAILY@09 IV 11/17/24 09:00 UNV Laboratory Results Laboratory Tests 11/16/24 06:45 Chemistry Test 11/16/24 06:45 Albumin 4.5 g/dL (3.2-4.8) Calcium Level 9.7 mg/dL (8.7-10.4) Total Protein 7.3 g/dL (5.7-8.2) LFT Test 11/16/24 06:45 Alanine Aminotransferase (ALT) 26 U/L (7-40) Alkaline Phosphatase 69 U/L (46-116) Aspartate Amino Transferase (AST) 13 U/L (13-40) Total Bilirubin 0.7 mg/dL (0.2-1.0) Urinalysis Test 11/15/24 10:00 Urine Color Yellow (Yellow) Urine Clarity Clear (Clear) Urine pH 6.0 (5.0-9.0) Urine Specific [place] 1.037 (1.001-1.035) Urine Protein Negative (Negative) Urine Ketones Negative (Negative) Urine Blood Trace /uL (Negative) H Urine Nitrite Negative (Negative) Urine Bilirubin Negative (Negative) Urine Urobilinogen Normal mg/dL (Negative) Urine Leukocyte Esterase Negative /uL (Negative) Urine RBC 3 /hpf (0 - 3) Urine Microscopic WBC 1 /HPF (0-3) Urine Squamous Epithelial Cells None seen /hpf (<5) Urine Bacteria Few /hpf (None Seen) H Urine Mucus Few (None Seen) Urine Glucose Normal mg/dL (Normal) Labs and/or images reviewed: Labs reviewed by me, Image(s) reviewed by me Assessment/Plan Assessment/Plan Acute abdominal pain Acute ascending colitis: Giuliana Altamirano : Consult for GI Dr. Elis Avery Acute dehydration: IV fluids Appendix is normal Plan discussed with: Patient My Orders Orders - CAMRYN RUSSELL MD Procedure Category Date Status Time Ceftriaxone 1gm/50ml PHA 11/17/24 Logged D5w (Rocephin) 09:00 Ceftriaxone 1gm/50ml PHA 11/16/24 Logged D5w (Rocephin) 11:45 * [facility] [employer] CONS 11/16/24 Verified 11:45 Date of Service: Nov 16, 2024 Billing Provider: CAMRYN RUSSELL MD Common Visit Codes: [id number] INP/OBS CARE(HIGH) CAMRYN RUSSELL MD Nov 16, 2024 11:47
--- NOTE | 2024-11-16 12:47 | DVHINCON2 ---
GI Consult Consult Note GI consult note Date of Consultation: 10/1924 Chief Complaint: Ascending colitis Referring Physician: Dr. Joan Russell H&P: 19-year-old male presented to ER with complains of abdominal pain Patient complains of left lower quadrant pain. Also complaining of loose stool, about 2 times today already. No melena or red blood in stool Patient had similar symptoms in July. And has been having loose stool since July No colonoscopy in past Past Medical History: Asthma Past Surgical History: Denies Social History: NO smoking, drinking ETOH and use of illegal drugs. Family History: Noncontributory Review of Systems: Constitutional: no fever, chill, weight loss Heart: no chest pain, no chest pressure Lung: no cough, no dyspnea with exertion Abdomen: see HPI Physical exam: General: NAD, AAOX3 Chest: lung cardoso clear to auscultation Heart: RRR, no murmur Abdomen: Mild LLQ tenderness to palpation, +BS Labs: Labs Test 11/16/24 06:45 11/15/24 10:00 Range/Units White Blood Count 5.0 4.4-10.8 10^3/uL Red Blood Count 4.90 4.5-5.90 10^6/uL Hemoglobin 14.9 13.5-17.5 g/dL Hematocrit 44.4 41.0-53.0 % Mean Corpuscular Volume 90.5 80.0-100.0 fL Mean Corpuscular Hemoglobin 30.5 28.0-32.0 pg Mean Corpuscular Hemoglobin Concent 33.7 32.0-36.0 g/dL Red Cell Distribution Width 13.7 11.8-14.3 % Platelet Count 193 140-450 10^3/uL Mean Platelet Volume 7.3 6.9-10.8 fL Neutrophils (%) (Auto) 54.0 37.0-80.0 % Lymphocytes (%) (Auto) 30.9 10.0-50.0 % Monocytes (%) (Auto) 11.5 0.0-12.0 % Eosinophils (%) (Auto) 3.5 0.0-7.0 % Basophils (%) (Auto) 0.1 0.0-2.0 % Neutrophils # (Auto) 2.7 1.6-8.6 10 ^3/uL Lymphocytes # (Auto) 1.5 0.4-5.4 10 ^3/uL Monocytes # (Auto) 0.6 0-1.3 10 ^3/uL Eosinophils # (Auto) 0.2 0-0.8 10 ^3/uL Basophils # (Auto) 0 0-0.2 10 ^3/uL Nucleated Red Blood Cells 0.1 % Sodium Level 140 136-145 mmol/L Potassium Level 4.5 3.5-5.1 mmol/L Chloride Level 106 98-107 mmol/L Carbon Dioxide Level 28 20-31 mmol/L Anion Gap 6 5-15 Blood Urea Nitrogen 15 9-23 mg/dL Creatinine 1.07 0.700-1.30 mg/dL Glomerular Filtration Rate Calc 102 >90 mL/min BUN/Creatinine Ratio 14.0 10.0-20.0 Serum Glucose 86 74-106 mg/dL Calcium Level 9.7 8.7-10.4 mg/dL Total Bilirubin 0.7 0.2-1.0 mg/dL Aspartate Amino Transferase (AST) 13 13-40 U/L Alanine Aminotransferase (ALT) 26 7-40 U/L Alkaline Phosphatase 69 46-116 U/L Total Protein 7.3 5.7-8.2 g/dL Albumin 4.5 3.2-4.8 g/dL Urine Color Yellow Yellow Urine Clarity Clear Clear Urine pH 6.0 5.0-9.0 Urine Specific [place] 1.037 H 1.001-1.035 Urine Protein Negative Negative Urine Ketones Negative Negative Urine Blood Trace H Negative /uL Urine Nitrite Negative Negative Urine Bilirubin Negative Negative Urine Urobilinogen Normal Negative mg/dL Urine Leukocyte Esterase Negative Negative /uL Urine RBC 3 0 - 3 /hpf Urine Microscopic WBC 1 0-3 /HPF Urine Squamous Epithelial Cells None seen <5 /hpf Urine Bacteria Few H None Seen /hpf Urine Mucus Few None Seen Urine Glucose Normal Normal mg/dL Imaging: CT abdomen pelvis IMPRESSION: 1. Ascending colitis that could be infectious or inflammatory. No evidence of terminal ileitis. The appendix is normal. Mild mesenteric adenitis noted in the right lower quadrant. Assessment: Abdominal pain Colitis Diarrhea Plan: Patient seen and examined by Dr. Avery also Recommend stool for WBC bacterial culture and C diff Continue antibiotic use IBD panel Possible plan for colonoscopy if stool tests are negative for infection, otherwise outpatient colonoscopy recommended Thank you for this consult Date of Service: Nov 16, 2024 Billing Provider: ROSALVA RUSSELL Common Visit Codes: CONSULT ONLY Consultation Codes: [id number] CONSULT <45MIN ROSALVA RUSSELL Nov 16, 2024 12:47
[2024-11-16] MEDS: cefTRIAXone 1GM/50ML D5W 50 ML IV ONE (17:29)
[2024-11-16] MEDS: HYDROcodone-ACET 5/325MG TAB PO PRN (21:46)
[2024-11-17] VITALS (10 sets, daily range): BP systolic 113–129; BP diastolic 55–75; PULSE 67–84; RESP 15–19; TEMP 97.6–98.1; O2SAT 94–98
--- NOTE | 2024-11-17 08:13 | DVHPN2 ---
Reviewed: Care Plan, H&P, Labs, Medications, Previous Orders, Radiology Changes from previous H/P or p: No Changes Eyes: No Pain, No Vision change, No Conjunctivae inflammation, No Eyelid inflammation, No Other, No Redness ENT: No Ear pain, No Ear discharge, No Nose pain, No Nose discharge, No Nose congestion, No Mouth pain, No Mouth swelling, No Throat pain, No Throat swelling, No Other Cardiovascular: No Chest Pain, No Palpitations, No Orthopnea, No Paroxysmal Noc. Dyspnea, No Edema, No Lt Headedness, No Other Respiratory: No Cough, No Dry, No Shortness of breath, No SOB with excertion, No Wheezing, No Hemoptysis, No Pleuritic Pain, No Sputum, No Other Gastrointestinal: Nausea, Vomiting, Abdominal Pain, Diarrhea; No Constipation, No Melena, No Hematochezia, No Other Genitourinary: No Dysuria, No Frequency, No Incontinence, No Hematuria, No Retention, No Other Musculoskeletal: No other, No neck pain, No shoulder pain, No arm pain, No back pain, No hand pain, No leg pain, No foot pain Skin: No Rash, No Lesions, No Jaundice, No Bruising, No Other Objective Vitals Vital Signs Date Time Temp Pulse Resp B/P (MAP) Pulse Ox O2 Delivery O2 Flow Rate FiO2 11/17/24 01:00 97.6 81 19 114/71 (85) 98 97.6 11/16/24 22:11 Room Air 0.0 11/16/24 22:11 21 Intake/Output Intake and Output 11/17/24 07:00 Intake Total 1620 ml Output Total 250 ml Balance 1370 ml Intake Oral 1420 ml IV Total 200 ml Output Urine Total 250 ml # Voids 8 # Bowel Movements 5 Medications Current Medications Medications Dose Ordered Sig/Jad Route Start Time Stop Time Status Last Admin Dose Admin Metronidazole 100 ml @ 100 mls/hr Q8HR IV 11/15/24 22:00 11/17/24 05:09 100 MLS/HR Sodium Chloride 10 ml Q8HR IV 11/15/24 22:00 11/17/24 05:10 10 ML Ondansetron HCl 4 mg Q4HP PRN IV 11/15/24 15:00 Docusate Sodium 100 mg BIDPRN PRN PO 11/15/24 15:00 Acetaminophen 650 mg Q6HP PRN PO 11/15/24 15:00 11/15/24 18:14 650 MG Acetaminophen/ Hydrocodone Bitart 1 tab Q4HPRN PRN PO 11/15/24 15:00 11/16/24 21:46 1 TAB Albuterol 2.5 mg Q4HPRN PRN NEB 11/15/24 15:00 11/16/24 11:45 2.5 MG Nitroglycerin 0.4 mg Q5MINP PRN SL 11/15/24 16:30 Morphine Sulfate 2 mg Q30M PRN IV 11/15/24 16:30 Hold Ceftriaxone Sodium 50 ml @ 100 mls/hr DAILY@ IV 11/17/24 09:00 Laboratory Results Laboratory Tests 11/16/24 06:45 Urinalysis Test 11/15/24 10:00 Urine Color Yellow (Yellow) Urine Clarity Clear (Clear) Urine pH 6.0 (5.0-9.0) Urine Specific [place] 1.037 (1.001-1.035) Urine Protein Negative (Negative) Urine Ketones Negative (Negative) Urine Blood Trace /uL (Negative) H Urine Nitrite Negative (Negative) Urine Bilirubin Negative (Negative) Urine Urobilinogen Normal mg/dL (Negative) Urine Leukocyte Esterase Negative /uL (Negative) Urine RBC 3 /hpf (0 - 3) Urine Microscopic WBC 1 /HPF (0-3) Urine Squamous Epithelial Cells None seen /hpf (<5) Urine Bacteria Few /hpf (None Seen) H Urine Mucus Few (None Seen) Urine Glucose Normal mg/dL (Normal) Labs and/or images reviewed: Labs reviewed by me, Image(s) reviewed by me Assessment/Plan Assessment/Plan Acute abdominal pain Acute ascending colitis: Rocephin Flagyl Mcgill : Consult for GI Dr. Elis Avery appreciated, rule out IBD, tests pending, possible colonoscopy Acute dehydration: IV fluids Appendix is normal Stool for WBC C diff pending Plan discussed with: Patient My Orders Orders - CAMRYN RUSSELL MD Procedure Category Date Status Time Ceftriaxone 1gm/50ml PHA 11/17/24 In Process D5w (Rocephin) 09:00 * [facility] [employer] CONS 11/16/24 Transmitted 11:45 Clostridium Difficile TEN 11/17/24 In Process Toxin 05:49 Date of Service: Nov 17, 2024 Billing Provider: CAMRYN RUSSELL MD Common Visit Codes: [id number] INP/OBS CARE(HIGH) CAMRYN RUSSELL MD Nov 17, 2024 08:13
[2024-11-17] MEDS: cefTRIAXone 1GM/50ML D5W 50 ML IV SCH (09:42)
--- NOTE | 2024-11-17 12:29 | DVHPN2 ---
Subjective Patient admits to feeling slightly better Reviewed: Care Plan, H&P, Labs, Medications, Previous Orders, Radiology Changes from previous H/P or p: No Changes Eyes: No Pain, No Vision change, No Conjunctivae inflammation, No Eyelid inflammation, No Other, No Redness ENT: No Ear pain, No Ear discharge, No Nose pain, No Nose discharge, No Nose congestion, No Mouth pain, No Mouth swelling, No Throat pain, No Throat swelling, No Other Cardiovascular: No Chest Pain, No Palpitations, No Orthopnea, No Paroxysmal Noc. Dyspnea, No Edema, No Lt Headedness, No Other Respiratory: No Cough, No Dry, No Shortness of breath, No SOB with excertion, No Wheezing, No Hemoptysis, No Pleuritic Pain, No Sputum, No Other Gastrointestinal: Nausea, Vomiting, Abdominal Pain, Diarrhea; No Constipation, No Melena, No Hematochezia, No Other Genitourinary: No Dysuria, No Frequency, No Incontinence, No Hematuria, No Retention, No Other Musculoskeletal: No other, No neck pain, No shoulder pain, No arm pain, No back pain, No hand pain, No leg pain, No foot pain Skin: No Rash, No Lesions, No Jaundice, No Bruising, No Other Objective Vitals Vital Signs Date Time Temp Pulse Resp B/P (MAP) Pulse Ox O2 Delivery O2 Flow Rate FiO2 11/17/24 09:11 97.6 67 15 121/60 (80) 96 97.6 11/17/24 08:30 Room Air* 0 21 Intake/Output Intake and Output 11/17/24 07:00 Intake Total 1620 ml Output Total 250 ml Balance 1370 ml Intake Oral 1420 ml IV Total 200 ml Output Urine Total 250 ml # Voids 8 # Bowel Movements 5 General Appearance: Alert, Oriented X3, Cooperative, No acute distress, mild distress, moderate distress, severe distress, Other Lungs: Clear to auscultation, Normal air movement, Other Cardiovascular: Regular rate, Normal S1, Normal S2, No murmurs, Gallops, Rubs, Other Abdomen: Normal bowel sounds, Soft, No tenderness, No hepatospenomegaly, No masses, Other Medications Current Medications Medications Dose Ordered Sig/Jad Route Start Time Stop Time Status Last Admin Dose Admin Metronidazole 100 ml @ 100 mls/hr Q8HR IV 11/15/24 22:00 11/17/24 05:09 100 MLS/HR Sodium Chloride 10 ml Q8HR IV 11/15/24 22:00 11/17/24 05:10 10 ML Ondansetron HCl 4 mg Q4HP PRN IV 11/15/24 15:00 Docusate Sodium 100 mg BIDPRN PRN PO 11/15/24 15:00 Acetaminophen 650 mg Q6HP PRN PO 11/15/24 15:00 11/15/24 18:14 650 MG Acetaminophen/ Hydrocodone Bitart 1 tab Q4HPRN PRN PO 11/15/24 15:00 11/16/24 21:46 1 TAB Albuterol 2.5 mg Q4HPRN PRN NEB 11/15/24 15:00 11/16/24 11:45 2.5 MG Nitroglycerin 0.4 mg Q5MINP PRN SL 11/15/24 16:30 Morphine Sulfate 2 mg Q30M PRN IV 11/15/24 16:30 Hold Ceftriaxone Sodium 50 ml @ 100 mls/hr DAILY@09 IV 11/17/24 09:00 11/17/24 09:42 100 MLS/HR Laboratory Results Laboratory Tests 11/16/24 06:45 Urinalysis Test 11/15/24 10:00 Urine Color Yellow (Yellow) Urine Clarity Clear (Clear) Urine pH 6.0 (5.0-9.0) Urine Specific [place] 1.037 (1.001-1.035) Urine Protein Negative (Negative) Urine Ketones Negative (Negative) Urine Blood Trace /uL (Negative) H Urine Nitrite Negative (Negative) Urine Bilirubin Negative (Negative) Urine Urobilinogen Normal mg/dL (Negative) Urine Leukocyte Esterase Negative /uL (Negative) Urine RBC 3 /hpf (0 - 3) Urine Microscopic WBC 1 /HPF (0-3) Urine Squamous Epithelial Cells None seen /hpf (<5) Urine Bacteria Few /hpf (None Seen) H Urine Mucus Few (None Seen) Urine Glucose Normal mg/dL (Normal) Labs and/or images reviewed: Labs reviewed by me, Image(s) reviewed by me Assessment/Plan Assessment/Plan Abdominal pain Colitis Diarrhea Plan: Discussed with Dr. Avery Plan for colonoscopy tomorrow 11/18/2024. Discussed risks, benefits, alternatives of procedure and sedation, patient understands and agrees Plan discussed with: Patient, Other (Hospitalist and RN) My Orders Orders - ROSALVA RUSSELL Procedure Category Date Status Time Inflammatory Bowel LAB 11/16/24 In Process Disease-Ibd 12:29 Stool Bacterial TEN 11/17/24 In Process Culture 07:30 Date of Service: Nov 17, 2024 Billing Provider: ROSALVA RUSSELL Common Visit Codes: [id number] INP/OBS CARE(HIGH) ROSALVA RUSSELL Nov 17, 2024 12:29
[2024-11-17] MEDS: GOLYTELY 4L KIT PO ONE (14:06)
[2024-11-18] VITALS (12 sets, daily range): BP systolic 104–129; BP diastolic 64–79; PULSE 63–79; RESP 13–17; TEMP 97.6–98.2; O2SAT 95–97
[2024-11-18] MEDS: MAGNESIUM CITRATE SOLUTION 300 ML BTL PO ONE (05:00)
[2024-11-18] MEDS: GOLYTELY 4L KIT PO ONE (05:01)
[2024-11-18 07:35] LABS: INR 1.12 (0.9-1.15); Prothrombin Time 11.7 sec (9.3-11.8)
--- NOTE | 2024-11-18 08:25 | DVHPN2 ---
Reviewed: Care Plan, H&P, Labs, Medications, Previous Orders, Radiology Changes from previous H/P or p: No Changes Eyes: No Pain, No Vision change, No Conjunctivae inflammation, No Eyelid inflammation, No Other, No Redness ENT: No Ear pain, No Ear discharge, No Nose pain, No Nose discharge, No Nose congestion, No Mouth pain, No Mouth swelling, No Throat pain, No Throat swelling, No Other Cardiovascular: No Chest Pain, No Palpitations, No Orthopnea, No Paroxysmal Noc. Dyspnea, No Edema, No Lt Headedness, No Other Respiratory: No Cough, No Dry, No Shortness of breath, No SOB with excertion, No Wheezing, No Hemoptysis, No Pleuritic Pain, No Sputum, No Other Gastrointestinal: Nausea, Vomiting, Abdominal Pain, Diarrhea; No Constipation, No Melena, No Hematochezia, No Other Genitourinary: No Dysuria, No Frequency, No Incontinence, No Hematuria, No Retention, No Other Musculoskeletal: No other, No neck pain, No shoulder pain, No arm pain, No back pain, No hand pain, No leg pain, No foot pain Skin: No Rash, No Lesions, No Jaundice, No Bruising, No Other Objective Vitals Vital Signs Date Time Temp Pulse Resp B/P (MAP) Pulse Ox O2 Delivery O2 Flow Rate FiO2 11/18/24 05:34 98.0 65 17 113/76 (88) 97 98.0 11/17/24 21:58 Room Air* 0 21 Intake/Output Intake and Output 11/18/24 07:00 Intake Total 3100 ml Output Total 600 ml Balance 2500 ml Intake Oral 3000 ml IV Total 100 ml Output Urine Total 600 ml # Voids 8 # Bowel Movements 8 General Appearance: Alert, Oriented X3, Cooperative, No acute distress, mild distress, moderate distress, severe distress, Other Lungs: Clear to auscultation, Normal air movement, Other Cardiovascular: Regular rate, Normal S1, Normal S2, No murmurs, Gallops, Rubs, Other Abdomen: Normal bowel sounds, Soft, No tenderness, No hepatospenomegaly, No masses, Other Medications Current Medications Medications Dose Ordered Sig/Jad Route Start Time Stop Time Status Last Admin Dose Admin Metronidazole 100 ml @ 100 mls/hr Q8HR IV 11/15/24 22:00 11/18/24 05:00 100 MLS/HR Sodium Chloride 10 ml Q8HR IV 11/15/24 22:00 11/18/24 06:05 10 ML Ondansetron HCl 4 mg Q4HP PRN IV 11/15/24 15:00 Docusate Sodium 100 mg BIDPRN PRN PO 11/15/24 15:00 Acetaminophen 650 mg Q6HP PRN PO 11/15/24 15:00 11/15/24 18:14 650 MG Acetaminophen/ Hydrocodone Bitart 1 tab Q4HPRN PRN PO 11/15/24 15:00 11/16/24 21:46 1 TAB Albuterol 2.5 mg Q4HPRN PRN NEB 11/15/24 15:00 11/16/24 11:45 2.5 MG Nitroglycerin 0.4 mg Q5MINP PRN SL 11/15/24 16:30 Morphine Sulfate 2 mg Q30M PRN IV 11/15/24 16:30 Hold Ceftriaxone Sodium 50 ml @ 100 mls/hr DAILY@09 IV 11/17/24 09:00 11/17/24 09:42 100 MLS/HR Laboratory Results Laboratory Tests 11/16/24 06:45 Coagulation Test 11/18/24 06:37 Prothrombin Time 11.7 sec (9.3-11.8) Prothrombin Time INR 1.12 (0.9-1.15) Urinalysis Test 11/15/24 10:00 Urine Color Yellow (Yellow) Urine Clarity Clear (Clear) Urine pH 6.0 (5.0-9.0) Urine Specific [place] 1.037 (1.001-1.035) Urine Protein Negative (Negative) Urine Ketones Negative (Negative) Urine Blood Trace /uL (Negative) H Urine Nitrite Negative (Negative) Urine Bilirubin Negative (Negative) Urine Urobilinogen Normal mg/dL (Negative) Urine Leukocyte Esterase Negative /uL (Negative) Urine RBC 3 /hpf (0 - 3) Urine Microscopic WBC 1 /HPF (0-3) Urine Squamous Epithelial Cells None seen /hpf (<5) Urine Bacteria Few /hpf (None Seen) H Urine Mucus Few (None Seen) Urine Glucose Normal mg/dL (Normal) Microbiology Microbiology Date/Time Source Procedure Growth Status 11/17/24 05:35 Stool Stool Culture - Preliminary Resulted 11/17/24 05:35 Stool Shiga Toxin I & II - Final Resulted Labs and/or images reviewed: Labs reviewed by me, Image(s) reviewed by me Assessment/Plan Assessment/Plan Acute abdominal pain Acute ascending colitis: Giuliana Altamirano : Consult for GI Dr. Elis Avery appreciated, rule out IBD, tests pending, Acute dehydration: IV fluids Appendix is normal C diff negative, Shiga negative Patient is getting colonoscopy today by Dr. Elis Avery Plan discussed with: Patient Date of Service: Nov 18, 2024 Billing Provider: CAMRYN RUSSELL MD Common Visit Codes: [id number] INP/OBS CARE(HIGH) CAMRYN RUSSELL MD Nov 18, 2024 08:25
[2024-11-18] MEDS ORDERED: PROPOFOL 10 MG/ML 20 ML IV ONE (13:40)
[2024-11-18] MEDS ORDERED: fentaNYL CITRATE 100 MCG/2 ML VL ONE (13:40)
--- NOTE | 2024-11-18 14:07 | DVHOP2 ---
Operative Report DATE OF OPERATION: 11/18/24 PROCEDURE: Colonoscopy with biopsy PREOPERATIVE INDICATION: The patient is a 19 -year-old male undergoing colonoscopy for right-sided abdominal pain and abnormal finding GI tract imaging rule out inflammatory bowel disease POSTOPERATIVE DIAGNOSES: 1. Mild nonspecific colitis hyperemia and mucosal edema and some superficial areas of ulcerations and flecks of bleeding from which multiple biopsies were obtained 2. Normal-appearing appendiceal opening and normal distal terminal ileum without evidence of Crohn's ileitis or appendicitis PROCEDURE PERFORMED BY: Glenny Avery M.D. SCOPE: Olympus videocolonoscope. ASA CLASS: 2. PREOPERATIVE MEDICATIONS: Mac Dr. Kathryn epperson PROCEDURE IN DETAIL: After obtaining an informed consent, the patient was placed on left lateral decubitus position. He was then sedated with the above medications. A rectal examination was performed that was normal. The colonoscope was then passed through the anus into the rectosigmoid and through the descending, transverse, and ascending colon up to the cecum with visualization of the appendiceal orifice, base of the cecum and the ileocecal valve. The colonoscope was then withdrawn. The distal 5-10 cm of the terminal ileum were normal The patient had evidence of mild diffuse nonspecific colitis with some hyperemia mucosal edema and superficial ulcerations. This was more prominent in the right colon compared to the left colon however the disease was mostly diffuse. Random colon biopsies were obtained to rule out underlying colitis and evaluate colitis On retroflexion and straight on view he had trace to 1+ internal hemorrhoids. The patient tolerated the procedure well without difficulty. WITHDRAWAL TIME: 8 minutes QUALITY OF THE PREP: [place] Bowel Prep score: 9. COMPLICATIONS : None SPECIMENS: Random colon biopsies DISPOSITION: Transfer back to the floor Stable PLAN: 1. Repeat colonoscopy base on biopsy result likely in 3-5 years 2. Resume GI soft diet advance as tolerated 3. Mesalamine 800 mg p.o. three times a day 4. Trial off low-dose steroids 5. Await IBD panel ; stool 6. Outpatient follow up with me in 4-6 weeks to review results and discuss further management GLENNY AVERY MD Nov 18, 2024 14:07
[2024-11-18] MEDS: MESALAMINE 400mg Delayed Release Cap PO SCH (21:39)
[2024-11-19] VITALS (10 sets, daily range): BP systolic 100–128; BP diastolic 52–74; PULSE 64–98; RESP 16–18; TEMP 97.6–98.1; O2SAT 94–98
[2024-11-19 07:20] LABS: Basophils # (auto) 0 10 ^3/uL (0-0.2); Basophils % (auto) 0.3 % (0.0-2.0); Eosinophils # (auto) 0.2 10 ^3/uL (0-0.8); Eosinophils % (auto) 2.4 % (0.0-7.0); Hemoglobin 15.8 g/dL (13.5-17.5); Lymphocytes % (auto) 29.8 % (10.0-50.0); Mean Corpuscular Hemoglobin 31.5 pg (28.0-32.0); Mean Corpuscular Hgb Conc. 35.1 g/dL (32.0-36.0); Mean Corpuscular Volume 89.8 fL (80.0-100.0); Monocytes # (auto) 0.8 10 ^3/uL (0-1.3); Monocytes % (auto) 11.9 % (0.0-12.0); Neutrophils # (auto) 3.7 10 ^3/uL (1.6-8.6); Neutrophils % (auto) 55.6 % (37.0-80.0); Platelet Count (auto) 235 10^3/uL (140-450); Red Blood Cells 5.02 10^6/uL (4.5-5.90); Red Cell Distribution Width 13.3 % (11.8-14.3); White Blood Cell 6.7 10^3/uL (4.4-10.8)
[2024-11-19 07:35] LABS: Alanine Aminotransferase 32 U/L (7-40); Albumin 4.5 g/dL (3.2-4.8); Alkaline Phosphatase 73 U/L (46-116); Anion Gap 8 (5-15); Aspartate Aminotransferase 22 U/L (13-40); BUN/Creatinine Ratio 15.5 (10.0-20.0); Bilirubin, Total 0.4 mg/dL (0.2-1.0); Blood Urea Nitrogen 16 mg/dL (9-23); Calcium 9.6 mg/dL (8.7-10.4); Carbon Dioxide 25 mmol/L (20-31); Glucose 98 mg/dL (74-106); Potassium 4.1 mmol/L (3.5-5.1); Sodium 140 mmol/L (136-145); Total Protein 7.4 g/dL (5.7-8.2)
[2024-11-19 07:44] LABS: Chloride 107 mmol/L (98-107)
[2024-11-19] MEDS: predniSONE 20 MG TAB PO SCH (08:26)
--- NOTE | 2024-11-19 08:49 | DVHPN2 ---
Reviewed: Care Plan, H&P, Labs, Medications, Previous Orders, Radiology Changes from previous H/P or p: No Changes Eyes: No Pain, No Vision change, No Conjunctivae inflammation, No Eyelid inflammation, No Other, No Redness ENT: No Ear pain, No Ear discharge, No Nose pain, No Nose discharge, No Nose congestion, No Mouth pain, No Mouth swelling, No Throat pain, No Throat swelling, No Other Cardiovascular: No Chest Pain, No Palpitations, No Orthopnea, No Paroxysmal Noc. Dyspnea, No Edema, No Lt Headedness, No Other Respiratory: No Cough, No Dry, No Shortness of breath, No SOB with excertion, No Wheezing, No Hemoptysis, No Pleuritic Pain, No Sputum, No Other Gastrointestinal: Nausea, Vomiting, Abdominal Pain, Diarrhea; No Constipation, No Melena, No Hematochezia, No Other Genitourinary: No Dysuria, No Frequency, No Incontinence, No Hematuria, No Retention, No Other Musculoskeletal: No other, No neck pain, No shoulder pain, No arm pain, No back pain, No hand pain, No leg pain, No foot pain Skin: No Rash, No Lesions, No Jaundice, No Bruising, No Other Objective Vitals Vital Signs Date Time Temp Pulse Resp B/P (MAP) Pulse Ox O2 Delivery O2 Flow Rate FiO2 11/19/24 05:09 97.6 64 18 100/62 (75) 94 97.6 11/18/24 21:08 Room Air 0.0 11/18/24 21:08 21 Intake/Output Intake and Output 11/19/24 07:00 Intake Total 1430 ml Balance 1430 ml Intake Oral 1080 ml IV Total 350 ml # Voids 4 # Bowel Movements 4 General Appearance: Alert, Oriented X3, Cooperative, No acute distress, mild distress, moderate distress, severe distress, Other Lungs: Clear to auscultation, Normal air movement, Other Cardiovascular: Regular rate, Normal S1, Normal S2, No murmurs, Gallops, Rubs, Other Abdomen: Normal bowel sounds, Soft, No tenderness, No hepatospenomegaly, No masses, Other Medications Current Medications Medications Dose Ordered Sig/Jad Route Start Time Stop Time Status Last Admin Dose Admin Metronidazole 100 ml @ 100 mls/hr Q8HR IV 11/15/24 22:00 11/19/24 05:15 100 MLS/HR Sodium Chloride 10 ml Q8HR IV 11/15/24 22:00 11/19/24 05:17 10 ML Ondansetron HCl 4 mg Q4HP PRN IV 11/15/24 15:00 Docusate Sodium 100 mg BIDPRN PRN PO 11/15/24 15:00 Acetaminophen 650 mg Q6HP PRN PO 11/15/24 15:00 11/19/24 08:27 650 MG Acetaminophen/ Hydrocodone Bitart 1 tab Q4HPRN PRN PO 11/15/24 15:00 11/16/24 21:46 1 TAB Albuterol 2.5 mg Q4HPRN PRN NEB 11/15/24 15:00 11/16/24 11:45 2.5 MG Nitroglycerin 0.4 mg Q5MINP PRN SL 11/15/24 16:30 Morphine Sulfate 2 mg Q30M PRN IV 11/15/24 16:30 Hold Ceftriaxone Sodium 50 ml @ 100 mls/hr DAILY@09 IV 11/17/24 09:00 11/19/24 08:26 100 MLS/HR Mesalamine 800 mg TID PO 11/18/24 22:00 11/19/24 05:15 800 MG Prednisone 40 mg DAILY PO 11/19/24 10:00 11/19/24 08:26 40 MG Laboratory Results Laboratory Tests 11/19/24 06:14 Chemistry Test 11/19/24 06:14 Albumin 4.5 g/dL (3.2-4.8) Calcium Level 9.6 mg/dL (8.7-10.4) Total Protein 7.4 g/dL (5.7-8.2) LFT Test 11/19/24 06:14 Alanine Aminotransferase (ALT) 32 U/L (7-40) Alkaline Phosphatase 73 U/L (46-116) Aspartate Amino Transferase (AST) 22 U/L (13-40) Total Bilirubin 0.4 mg/dL (0.2-1.0) Urinalysis Test 11/15/24 10:00 Urine Color Yellow (Yellow) Urine Clarity Clear (Clear) Urine pH 6.0 (5.0-9.0) Urine Specific [place] 1.037 (1.001-1.035) Urine Protein Negative (Negative) Urine Ketones Negative (Negative) Urine Blood Trace /uL (Negative) H Urine Nitrite Negative (Negative) Urine Bilirubin Negative (Negative) Urine Urobilinogen Normal mg/dL (Negative) Urine Leukocyte Esterase Negative /uL (Negative) Urine RBC 3 /hpf (0 - 3) Urine Microscopic WBC 1 /HPF (0-3) Urine Squamous Epithelial Cells None seen /hpf (<5) Urine Bacteria Few /hpf (None Seen) H Urine Mucus Few (None Seen) Urine Glucose Normal mg/dL (Normal) Microbiology Microbiology Date/Time Source Procedure Growth Status 11/17/24 05:35 Stool Stool Culture - Preliminary Resulted 11/17/24 05:35 Stool Shiga Toxin I & II - Final Resulted Labs and/or images reviewed: Labs reviewed by me, Image(s) reviewed by me Assessment/Plan Assessment/Plan Acute abdominal pain Acute ascending colitis: Giuliana Altamirano : Consult for GI Dr. Elis Avery appreciated, rule out IBD, tests pending, Status post colonoscopy by Dr. Elis Avery on 11/18/2024 "1. Mild nonspecific colitis hyperemia and mucosal edema and some superficial areas of ulcerations and flecks of bleeding from which multiple biopsies were obtained 2. Normal-appearing appendiceal opening and normal distal terminal ileum without evidence of Crohn's ileitis or appendicitis" History of irritable bowel disease diagnosed in 2019 at [place] Acute dehydration: IV fluids Appendix is normal C diff negative, Shiga negative Placed on mesalamine 800 mg PO TID and prednisone tablets 40 mg p.o. daily Advanced diet as tolerated Plan discussed with: Patient Date of Service: Nov 19, 2024 Billing Provider: CAMRYN RUSSELL MD Common Visit Codes: [id number] INP/OBS CARE(HIGH) CAMRYN RUSSELL MD Nov 19, 2024 08:49
[2024-11-20] VITALS (9 sets, daily range): BP systolic 103–126; BP diastolic 65–79; PULSE 56–84; RESP 14–18; TEMP 97.5–98; O2SAT 95–98
--- NOTE | 2024-11-20 08:39 | DVHPN2 ---
Reviewed: Care Plan, H&P, Labs, Medications, Previous Orders, Radiology Changes from previous H/P or p: No Changes Eyes: No Pain, No Vision change, No Conjunctivae inflammation, No Eyelid inflammation, No Other, No Redness ENT: No Ear pain, No Ear discharge, No Nose pain, No Nose discharge, No Nose congestion, No Mouth pain, No Mouth swelling, No Throat pain, No Throat swelling, No Other Cardiovascular: No Chest Pain, No Palpitations, No Orthopnea, No Paroxysmal Noc. Dyspnea, No Edema, No Lt Headedness, No Other Respiratory: No Cough, No Dry, No Shortness of breath, No SOB with excertion, No Wheezing, No Hemoptysis, No Pleuritic Pain, No Sputum, No Other Gastrointestinal: Nausea, Vomiting, Abdominal Pain, Diarrhea; No Constipation, No Melena, No Hematochezia, No Other Genitourinary: No Dysuria, No Frequency, No Incontinence, No Hematuria, No Retention, No Other Musculoskeletal: No other, No neck pain, No shoulder pain, No arm pain, No back pain, No hand pain, No leg pain, No foot pain Skin: No Rash, No Lesions, No Jaundice, No Bruising, No Other Objective Vitals Vital Signs Date Time Temp Pulse Resp B/P (MAP) Pulse Ox O2 Delivery O2 Flow Rate FiO2 11/20/24 01:00 97.6 84 18 103/70 (81) 95 97.6 11/19/24 20:00 Room Air* 0 21 Intake/Output Intake and Output 11/20/24 07:00 Intake Total 1590 ml Balance 1590 ml Intake Oral 1240 ml IV Total 350 ml # Voids 4 # Bowel Movements 2 General Appearance: Alert, Oriented X3, Cooperative, No acute distress, mild distress, moderate distress, severe distress, Other Lungs: Clear to auscultation, Normal air movement, Other Cardiovascular: Regular rate, Normal S1, Normal S2, No murmurs, Gallops, Rubs, Other Abdomen: Normal bowel sounds, Soft, No tenderness, No hepatospenomegaly, No masses, Other Medications Current Medications Medications Dose Ordered Sig/Jad Route Start Time Stop Time Status Last Admin Dose Admin Metronidazole 100 ml @ 100 mls/hr Q8HR IV 11/15/24 22:00 11/20/24 05:07 100 MLS/HR Sodium Chloride 10 ml Q8HR IV 11/15/24 22:00 11/20/24 05:07 10 ML Ondansetron HCl 4 mg Q4HP PRN IV 11/15/24 15:00 Docusate Sodium 100 mg BIDPRN PRN PO 11/15/24 15:00 Acetaminophen 650 mg Q6HP PRN PO 11/15/24 15:00 11/19/24 08:27 650 MG Acetaminophen/ Hydrocodone Bitart 1 tab Q4HPRN PRN PO 11/15/24 15:00 11/16/24 21:46 1 TAB Albuterol 2.5 mg Q4HPRN PRN NEB 11/15/24 15:00 11/16/24 11:45 2.5 MG Nitroglycerin 0.4 mg Q5MINP PRN SL 11/15/24 16:30 Morphine Sulfate 2 mg Q30M PRN IV 11/15/24 16:30 Hold Ceftriaxone Sodium 50 ml @ 100 mls/hr DAILY@09 IV 11/17/24 09:00 11/20/24 08:31 100 MLS/HR Mesalamine 800 mg TID PO 11/18/24 22:00 11/20/24 05:07 800 MG Prednisone 40 mg DAILY PO 11/19/24 10:00 11/20/24 08:31 40 MG Laboratory Results Laboratory Tests 11/19/24 06:14 Urinalysis Test 11/15/24 10:00 Urine Color Yellow (Yellow) Urine Clarity Clear (Clear) Urine pH 6.0 (5.0-9.0) Urine Specific [place] 1.037 (1.001-1.035) Urine Protein Negative (Negative) Urine Ketones Negative (Negative) Urine Blood Trace /uL (Negative) H Urine Nitrite Negative (Negative) Urine Bilirubin Negative (Negative) Urine Urobilinogen Normal mg/dL (Negative) Urine Leukocyte Esterase Negative /uL (Negative) Urine RBC 3 /hpf (0 - 3) Urine Microscopic WBC 1 /HPF (0-3) Urine Squamous Epithelial Cells None seen /hpf (<5) Urine Bacteria Few /hpf (None Seen) H Urine Mucus Few (None Seen) Urine Glucose Normal mg/dL (Normal) Microbiology Microbiology Date/Time Source Procedure Growth Status 11/17/24 05:35 Stool Stool Culture - Final Complete 11/17/24 05:35 Stool Shiga Toxin I & II - Final Complete Labs and/or images reviewed: Labs reviewed by me, Image(s) reviewed by me Assessment/Plan Assessment/Plan Acute abdominal pain Acute ascending colitis: Giuliana Altamirano : Consult for GI Dr. Elis Avery appreciated, rule out IBD, tests pending, Status post colonoscopy by Dr. Elis Avery on 11/18/2024 "1. Mild nonspecific colitis hyperemia and mucosal edema and some superficial areas of ulcerations and flecks of bleeding from which multiple biopsies were obtained 2. Normal-appearing appendiceal opening and normal distal terminal ileum without evidence of Crohn's ileitis or appendicitis" History of irritable bowel disease diagnosed in 2019 at [place] Acute dehydration: IV fluids Appendix is normal C diff negative, Shiga negative Placed on mesalamine 800 mg PO TID and prednisone tablets 40 mg p.o. daily Advanced diet as tolerated Continue current management Plan discussed with: Patient Date of Service: Nov 20, 2024 Billing Provider: CAMRYN RUSSELL MD Common Visit Codes: [id number] INP/OBS CARE(HIGH) CAMRYN RUSSELL MD Nov 20, 2024 08:39
[2024-11-21] VITALS (7 sets, daily range): BP systolic 98–126; BP diastolic 56–79; PULSE 60–81; RESP 14–17; TEMP 97.4–98.5; O2SAT 96–100
--- NOTE | 2024-11-21 10:08 | DVHPN2 ---
Reviewed: Care Plan, H&P, Labs, Medications, Previous Orders, Radiology Changes from previous H/P or p: No Changes Eyes: No Pain, No Vision change, No Conjunctivae inflammation, No Eyelid inflammation, No Other, No Redness ENT: No Ear pain, No Ear discharge, No Nose pain, No Nose discharge, No Nose congestion, No Mouth pain, No Mouth swelling, No Throat pain, No Throat swelling, No Other Cardiovascular: No Chest Pain, No Palpitations, No Orthopnea, No Paroxysmal Noc. Dyspnea, No Edema, No Lt Headedness, No Other Respiratory: No Cough, No Dry, No Shortness of breath, No SOB with excertion, No Wheezing, No Hemoptysis, No Pleuritic Pain, No Sputum, No Other Gastrointestinal: Nausea, Vomiting, Abdominal Pain, Diarrhea; No Constipation, No Melena, No Hematochezia, No Other Genitourinary: No Dysuria, No Frequency, No Incontinence, No Hematuria, No Retention, No Other Musculoskeletal: No other, No neck pain, No shoulder pain, No arm pain, No back pain, No hand pain, No leg pain, No foot pain Skin: No Rash, No Lesions, No Jaundice, No Bruising, No Other Objective Vitals Vital Signs Date Time Temp Pulse Resp B/P (MAP) Pulse Ox O2 Delivery O2 Flow Rate FiO2 11/21/24 08:55 98.5 81 17 122/68 (86) 96 98.5 11/21/24 03:33 21 11/20/24 20:00 Room Air* 0 Intake/Output Intake and Output 11/21/24 06:59 Intake Total 1500 ml Balance 1500 ml Intake Oral 1300 ml IV Total 200 ml # Voids 7 # Bowel Movements 2 General Appearance: Alert, Oriented X3, Cooperative, No acute distress, mild distress, moderate distress, severe distress, Other Lungs: Clear to auscultation, Normal air movement, Other Cardiovascular: Regular rate, Normal S1, Normal S2, No murmurs, Gallops, Rubs, Other Abdomen: Normal bowel sounds, Soft, No tenderness, No hepatospenomegaly, No masses, Other Medications Current Medications Medications Dose Ordered Sig/Jad Route Start Time Stop Time Status Last Admin Dose Admin Metronidazole 100 ml @ 100 mls/hr Q8HR IV 11/15/24 22:00 11/21/24 05:01 100 MLS/HR Sodium Chloride 10 ml Q8HR IV 11/15/24 22:00 11/21/24 05:02 10 ML Ondansetron HCl 4 mg Q4HP PRN IV 11/15/24 15:00 Docusate Sodium 100 mg BIDPRN PRN PO 11/15/24 15:00 Acetaminophen 650 mg Q6HP PRN PO 11/15/24 15:00 11/19/24 08:27 650 MG Acetaminophen/ Hydrocodone Bitart 1 tab Q4HPRN PRN PO 11/15/24 15:00 11/20/24 13:16 1 TAB Albuterol 2.5 mg Q4HPRN PRN NEB 11/15/24 15:00 11/16/24 11:45 2.5 MG Nitroglycerin 0.4 mg Q5MINP PRN SL 11/15/24 16:30 Morphine Sulfate 2 mg Q30M PRN IV 11/15/24 16:30 Hold Ceftriaxone Sodium 50 ml @ 100 mls/hr DAILY@09 IV 11/17/24 09:00 11/21/24 09:59 100 MLS/HR Mesalamine 800 mg TID PO 11/18/24 22:00 11/21/24 05:08 800 MG Prednisone 40 mg DAILY PO 11/19/24 10:00 11/21/24 09:56 40 MG Laboratory Results Laboratory Tests 11/19/24 06:14 Urinalysis Test 11/15/24 10:00 Urine Color Yellow (Yellow) Urine Clarity Clear (Clear) Urine pH 6.0 (5.0-9.0) Urine Specific [place] 1.037 (1.001-1.035) Urine Protein Negative (Negative) Urine Ketones Negative (Negative) Urine Blood Trace /uL (Negative) H Urine Nitrite Negative (Negative) Urine Bilirubin Negative (Negative) Urine Urobilinogen Normal mg/dL (Negative) Urine Leukocyte Esterase Negative /uL (Negative) Urine RBC 3 /hpf (0 - 3) Urine Microscopic WBC 1 /HPF (0-3) Urine Squamous Epithelial Cells None seen /hpf (<5) Urine Bacteria Few /hpf (None Seen) H Urine Mucus Few (None Seen) Urine Glucose Normal mg/dL (Normal) Microbiology Microbiology Date/Time Source Procedure Growth Status 11/17/24 05:35 Stool Stool Culture - Final Complete 11/17/24 05:35 Stool Shiga Toxin I & II - Final Complete Labs and/or images reviewed: Labs reviewed by me, Image(s) reviewed by me Assessment/Plan Assessment/Plan Acute abdominal pain Acute ascending colitis: Giuliana Altamirano : Consult for GI Dr. Elis Avery appreciated, rule out IBD, tests pending, Status post colonoscopy by Dr. Elis Avery on 11/18/2024 "1. Mild nonspecific colitis hyperemia and mucosal edema and some superficial areas of ulcerations and flecks of bleeding from which multiple biopsies were obtained 2. Normal-appearing appendiceal opening and normal distal terminal ileum without evidence of Crohn's ileitis or appendicitis" History of irritable bowel disease diagnosed in 2019 at [place] Acute dehydration: IV fluids Appendix is normal C diff negative, Shiga negative Placed on mesalamine 800 mg PO TID and prednisone tablets 40 mg p.o. daily Advanced diet as tolerated Continue current management Patient feeling better today Physical therapy ordered Plan discussed with: Patient Date of Service: Nov 21, 2024 Billing Provider: CAMRYN RUSSELL MD Common Visit Codes: [id number] INP/OBS CARE(HIGH) CAMRYN RUSSELL MD Nov 21, 2024 10:08
[2024-11-21 13:07] LABS: Saccharomyces cerevisiae IgA <20.0 Units (0.0-24.9)
--- NOTE | 2024-11-21 21:33 | DVHPN2 ---
Progress Note - Dictate Date Seen: Nov 21, 2024 Medical Necessity Reason Pt with a Central, PICC or Fol: No Subjective No new complaints Feeling better Diarrhoea improving On mechanical soft diet vital signs Vital Sign Date Time Temp Pulse Resp B/P (MAP) Pulse Ox O2 Delivery O2 Flow Rate FiO2 11/21/24 20:47 98.5 76 17 120/62 (81) 100 98.5 11/21/24 08:00 Room Air* 0 21 Total Intake and Output 11/20/24 11/20/24 11/21/24 15:00 23:00 07:00 Intake Total 500 ml 1000 ml Balance 500 ml 1000 ml medications Current Medications Medications Dose Ordered Sig/Jad Route Start Time Stop Time Status Last Admin Dose Admin Metronidazole 100 ml @ 100 mls/hr Q8HR IV 11/15/24 22:00 11/21/24 14:14 100 MLS/HR Sodium Chloride 10 ml Q8HR IV 11/15/24 22:00 11/21/24 14:03 10 ML Ondansetron HCl 4 mg Q4HP PRN IV 11/15/24 15:00 Docusate Sodium 100 mg BIDPRN PRN PO 11/15/24 15:00 Acetaminophen 650 mg Q6HP PRN PO 11/15/24 15:00 11/19/24 08:27 650 MG Acetaminophen/ Hydrocodone Bitart 1 tab Q4HPRN PRN PO 11/15/24 15:00 11/20/24 13:16 1 TAB Nitroglycerin 0.4 mg Q5MINP PRN SL 11/15/24 16:30 Morphine Sulfate 2 mg Q30M PRN IV 11/15/24 16:30 Hold Ceftriaxone Sodium 50 ml @ 100 mls/hr DAILY@09 IV 11/17/24 09:00 11/21/24 09:59 100 MLS/HR Mesalamine 800 mg TID PO 11/18/24 22:00 11/21/24 14:14 800 MG Prednisone 40 mg DAILY PO 11/19/24 10:00 11/21/24 09:56 40 MG objective General: NAD, AAOX3 Chest: lung cardoso clear to auscultation Heart: RRR, no murmur Abdomen: Mild LLQ tenderness to palpation, +BS laboratory and microbiology Laboratory Tests 11/19/24 06:14 Test 3/22/25 06:14 Range/Units Serum Glucose 98 74-106 mg/dL Problems(with codes): (1) Intractable nausea and vomiting (2) Intractable abdominal pain (3) Colitis (4) Nonspecific colitis Prognosis Assessment plan Patient's IBD panel including P ANCA and P ASCA are negative This favors an infectious cause of the colitis versus inflammatory I would recommend continuing mesalamine 800 mg p.o. three times a day Patient is currently on prednisone 40 mg p.o. daily Patient can be discharged home on a Medrol Dosepak for seven days He was given my contact information to follow up in my office in 4-6 weeks after discharge to discuss further ongoing management Dietary Evaluation Review Comments: Advance to diet as tolerated after colonoscopy. Monitor PO intake to meet 75% of his needs. accomondate diet according to GI tolerance, Expected Outcomes/Goals: Maintain wt. Plan discussed with: Patient GLENNY HOYT MD Nov 21, 2024 21:33
[2024-11-22] VITALS (7 sets, daily range): BP systolic 113–120; BP diastolic 55–63; PULSE 68–82; RESP 17–20; TEMP 98–98.3; O2SAT 95–98
[2024-11-22 07:47] LABS: Chloride 107 mmol/L (98-107); Potassium 4.7 mmol/L (3.5-5.1); Sodium 143 mmol/L (136-145)
[2024-11-22 07:48] LABS: Anion Gap 8 (5-15); Calcium 10.3 mg/dL (8.7-10.4); Carbon Dioxide 28 mmol/L (20-31)
[2024-11-22 07:50] LABS: Basophils # (auto) 0 10 ^3/uL (0-0.2); Basophils % (auto) 0.3 % (0.0-2.0); Eosinophils # (auto) 0.1 10 ^3/uL (0-0.8); Eosinophils % (auto) 1.4 % (0.0-7.0); Hematocrit 46.9 % (41.0-53.0); Hemoglobin 15.9 g/dL (13.5-17.5); Lymphocytes # (auto) 2.9 10 ^3/uL (0.4-5.4); Lymphocytes % (auto) 37.1 % (10.0-50.0); Mean Corpuscular Hemoglobin 30.9 pg (28.0-32.0); Mean Corpuscular Volume 90.9 fL (80.0-100.0); Monocytes # (auto) 0.8 10 ^3/uL (0-1.3); Monocytes % (auto) 10.4 % (0.0-12.0); Neutrophils % (auto) 50.8 % (37.0-80.0); Nucleated Red Blood Cells % 0.1 %; Platelet Count (auto) 269 10^3/uL (140-450); Red Blood Cells 5.16 10^6/uL (4.5-5.90); Red Cell Distribution Width 13.5 % (11.8-14.3); White Blood Cell 7.8 10^3/uL (4.4-10.8)
[2024-11-22 07:53] LABS: BUN/Creatinine Ratio 11.5 (10.0-20.0); Blood Urea Nitrogen 12 mg/dL (9-23); Glucose 90 mg/dL (74-106)
[2024-11-22] MEDS ORDERED: MESA1.2T PO (08:13)
[2024-11-22] MEDS ORDERED: METH4PAK PO (08:13)
--- NOTE | 2024-11-22 08:17 | DVHPN2 ---
Reviewed: Care Plan, H&P, Labs, Medications, Previous Orders, Radiology Changes from previous H/P or p: No Changes Eyes: No Pain, No Vision change, No Conjunctivae inflammation, No Eyelid inflammation, No Other, No Redness ENT: No Ear pain, No Ear discharge, No Nose pain, No Nose discharge, No Nose congestion, No Mouth pain, No Mouth swelling, No Throat pain, No Throat swelling, No Other Cardiovascular: No Chest Pain, No Palpitations, No Orthopnea, No Paroxysmal Noc. Dyspnea, No Edema, No Lt Headedness, No Other Respiratory: No Cough, No Dry, No Shortness of breath, No SOB with excertion, No Wheezing, No Hemoptysis, No Pleuritic Pain, No Sputum, No Other Gastrointestinal: Nausea, Vomiting, Abdominal Pain, Diarrhea; No Constipation, No Melena, No Hematochezia, No Other Genitourinary: No Dysuria, No Frequency, No Incontinence, No Hematuria, No Retention, No Other Musculoskeletal: No other, No neck pain, No shoulder pain, No arm pain, No back pain, No hand pain, No leg pain, No foot pain Skin: No Rash, No Lesions, No Jaundice, No Bruising, No Other Objective Vitals Vital Signs Date Time Temp Pulse Resp B/P (MAP) Pulse Ox O2 Delivery O2 Flow Rate FiO2 11/22/24 07:51 98.0 68 20 113/63 (80) 95 98.0 11/21/24 20:00 Room Air* 0 21 Intake/Output Intake and Output 11/22/24 07:00 Intake Total 2250 ml Balance 2250 ml Intake Oral 2000 ml IV Total 250 ml # Voids 7 # Bowel Movements 1 General Appearance: Alert, Oriented X3, Cooperative, No acute distress, mild distress, moderate distress, severe distress, Other Lungs: Clear to auscultation, Normal air movement, Other Cardiovascular: Regular rate, Normal S1, Normal S2, No murmurs, Gallops, Rubs, Other Abdomen: Normal bowel sounds, Soft, No tenderness, No hepatospenomegaly, No masses, Other Medications Current Medications Medications Dose Ordered Sig/Jad Route Start Time Stop Time Status Last Admin Dose Admin Metronidazole 100 ml @ 100 mls/hr Q8HR IV 11/15/24 22:00 11/22/24 06:07 100 MLS/HR Sodium Chloride 10 ml Q8HR IV 11/15/24 22:00 11/22/24 06:08 10 ML Ondansetron HCl 4 mg Q4HP PRN IV 11/15/24 15:00 Docusate Sodium 100 mg BIDPRN PRN PO 11/15/24 15:00 Acetaminophen 650 mg Q6HP PRN PO 11/15/24 15:00 11/19/24 08:27 650 MG Acetaminophen/ Hydrocodone Bitart 1 tab Q4HPRN PRN PO 11/15/24 15:00 11/20/24 13:16 1 TAB Nitroglycerin 0.4 mg Q5MINP PRN SL 11/15/24 16:30 Morphine Sulfate 2 mg Q30M PRN IV 11/15/24 16:30 Hold Ceftriaxone Sodium 50 ml @ 100 mls/hr DAILY@09 IV 11/17/24 09:00 11/21/24 09:59 100 MLS/HR Mesalamine 800 mg TID PO 11/18/24 22:00 11/22/24 06:06 800 MG Prednisone 40 mg DAILY PO 11/19/24 10:00 11/21/24 09:56 40 MG Laboratory Results Laboratory Tests 11/22/24 06:59 Chemistry Test 11/22/24 06:59 Calcium Level 10.3 mg/dL (8.7-10.4) Urinalysis Test 11/15/24 10:00 Urine Color Yellow (Yellow) Urine Clarity Clear (Clear) Urine pH 6.0 (5.0-9.0) Urine Specific [place] 1.037 (1.001-1.035) Urine Protein Negative (Negative) Urine Ketones Negative (Negative) Urine Blood Trace /uL (Negative) H Urine Nitrite Negative (Negative) Urine Bilirubin Negative (Negative) Urine Urobilinogen Normal mg/dL (Negative) Urine Leukocyte Esterase Negative /uL (Negative) Urine RBC 3 /hpf (0 - 3) Urine Microscopic WBC 1 /HPF (0-3) Urine Squamous Epithelial Cells None seen /hpf (<5) Urine Bacteria Few /hpf (None Seen) H Urine Mucus Few (None Seen) Urine Glucose Normal mg/dL (Normal) Microbiology Microbiology Date/Time Source Procedure Growth Status 11/17/24 05:35 Stool Stool Culture - Final Complete 11/17/24 05:35 Stool Shiga Toxin I & II - Final Complete Assessment/Plan Assessment/Plan Acute abdominal pain Acute ascending colitis: Giuliana rajeev Evelia : Consult for GI Dr. Elis Avery appreciated, rule out IBD, tests pending, Status post colonoscopy by Dr. Elis Avery on 11/18/2024 "1. Mild nonspecific colitis hyperemia and mucosal edema and some superficial areas of ulcerations and flecks of bleeding from which multiple biopsies were obtained 2. Normal-appearing appendiceal opening and normal distal terminal ileum without evidence of Crohn's ileitis or appendicitis" History of irritable bowel disease diagnosed in 2019 at [place] Acute dehydration: IV fluids Appendix is normal C diff negative, Shiga negative Placed on mesalamine 800 mg PO TID and prednisone tablets 40 mg p.o. daily Advanced diet as tolerated All tests came negative for irritable bowel disease GI Dr.N Avery thinks patient has infectious etiology for colitis rather than inflammatory etiology Advised to discharge the patient on mesalamine and Medrol Dosepak Plan discussed with: Patient My Orders Orders - CAMRYN RUSSELL MD Procedure Category Date Status Time Pt Request For Service PT 11/21/24 Logged 10:08 Complete Blood Count LAB 11/23/24 Verified 04:00 Complete Blood Count LAB 11/24/24 Verified 04:00 Basic Metabolic Panel LAB 11/23/24 Verified 05:00 Basic Metabolic Panel LAB 11/24/24 Verified 05:00 Date of Service: Nov 22, 2024 Billing Provider: CAMRYN RUSSELL MD Common Visit Codes: [id number] INP/OBS CARE(HIGH) CAMRYN RUSSELL MD Nov 22, 2024 08:17
--- NOTE | 2024-11-22 08:22 | DVHDS2 ---
Discharge Summary Date of Admission Nov 15, 2024 at 16:19 Date of Discharge: Nov 22, 2024 Admitting Diagnosis Abdominal pain nausea vomiting and diarrhea Wounds: None Labs/Diagnostic Data: Laboratory Results Test 11/22/24 06:59 11/19/24 06:14 11/18/24 06:37 11/16/24 06:45 White Blood Count 7.8 10^3/uL (4.4-10.8) Red Blood Count 5.16 10^6/uL (4.5-5.90) Hemoglobin 15.9 g/dL (13.5-17.5) Hematocrit 46.9 % (41.0-53.0) Mean Corpuscular Volume 90.9 fL (80.0-100.0) Mean Corpuscular Hemoglobin 30.9 pg (28.0-32.0) Mean Corpuscular Hemoglobin Concent 34.0 g/dL (32.0-36.0) Red Cell Distribution Width 13.5 % (11.8-14.3) Platelet Count 269 10^3/uL (140-450) Mean Platelet Volume 7.6 fL (6.9-10.8) Neutrophils (%) (Auto) 50.8 % (37.0-80.0) Lymphocytes (%) (Auto) 37.1 % (10.0-50.0) Monocytes (%) (Auto) 10.4 % (0.0-12.0) Eosinophils (%) (Auto) 1.4 % (0.0-7.0) Basophils (%) (Auto) 0.3 % (0.0-2.0) Neutrophils # (Auto) 4.0 10 ^3/uL (1.6-8.6) Lymphocytes # (Auto) 2.9 10 ^3/uL (0.4-5.4) Monocytes # (Auto) 0.8 10 ^3/uL (0-1.3) Eosinophils # (Auto) 0.1 10 ^3/uL (0-0.8) Basophils # (Auto) 0 10 ^3/uL (0-0.2) Nucleated Red Blood Cells 0.1 % Sodium Level 143 mmol/L (136-145) Potassium Level 4.7 mmol/L (3.5-5.1) Chloride Level 107 mmol/L (98-107) Carbon Dioxide Level 28 mmol/L (20-31) Anion Gap 8 (5-15) Blood Urea Nitrogen 12 mg/dL (9-23) Creatinine 1.04 mg/dL (0.700-1.30) Glomerular Filtration Rate Calc 105 mL/min (>90) BUN/Creatinine Ratio 11.5 (10.0-20.0) Serum Glucose 90 mg/dL (74-106) Calcium Level 10.3 mg/dL (8.7-10.4) Total Bilirubin 0.4 mg/dL (0.2-1.0) Aspartate Amino Transferase (AST) 22 U/L (13-40) Alanine Aminotransferase (ALT) 32 U/L (7-40) Alkaline Phosphatase 73 U/L (46-116) Total Protein 7.4 g/dL (5.7-8.2) Albumin 4.5 g/dL (3.2-4.8) Prothrombin Time 11.7 sec (9.3-11.8) Prothrombin Time INR 1.12 (0.9-1.15) Atypical p-ANCA <1:20 titer (Neg:<1:20) Saccharomyces cerevisiae IgG Ab <20.0 Units (0.0-24.9) Saccharomyces cerevisiae IgA Ab <20.0 Units (0.0-24.9) Test 11/15/24 10:00 Urine Color Yellow (Yellow) Urine Clarity Clear (Clear) Urine pH 6.0 (5.0-9.0) Urine Specific [place] 1.037 (1.001-1.035) Urine Protein Negative (Negative) Urine Ketones Negative (Negative) Urine Blood Trace /uL (Negative) Urine Nitrite Negative (Negative) Urine Bilirubin Negative (Negative) Urine Urobilinogen Normal mg/dL (Negative) Urine Leukocyte Esterase Negative /uL (Negative) Urine RBC 3 /hpf (0 - 3) Urine Microscopic WBC 1 /HPF (0-3) Urine Squamous Epithelial Cells None seen /hpf (<5) Urine Bacteria Few /hpf (None Seen) Urine Mucus Few (None Seen) Urine Glucose Normal mg/dL (Normal) Other Laboratory Tests 11/22/24 06:59 Brief Hx & Hospital Course: 19-year-old male came in for abdominal pain nausea and vomiting. Patient has had colonoscopy by Dr. Elis Avery on 11/18/2024 with the findings of mild nonspecific colitis and flexor bleeding from H multiple biopsies were obtained negative for acute appendicitis . History of IBD diagnosed in [place] 2019. Tests for IBD came negative during this visit. Treated with mesalamine and prednisone tablets Rocephin and Flagyl IV fluids and pain medications significantly improved. Dr. Avery cleared for discharge. Prescription for mesalamine and Medrol Dosepak transmitted to the pharmacy. He will follow up with Dr. Avery for the biopsy result Patient is afebrile ambulatory and eating at the time of discharge. Consults/Reason for consult GI Dr. Elis Avery Operations or Procedures CT abdomen pelvis without contrast Colonoscopy Condition at Discharge: Fair Final Diagnosis/Problems List Acute abdominal pain Acute ascending colitis: Rocephin Flagyl [place] : Consult for GI Dr. Elis Avery appreciated, rule out IBD, tests pending, Status post colonoscopy by Dr. Elis Avery on 11/18/2024 "1. Mild nonspecific colitis hyperemia and mucosal edema and some superficial areas of ulcerations and flecks of bleeding from which multiple biopsies were obtained 2. Normal-appearing appendiceal opening and normal distal terminal ileum without evidence of Crohn's ileitis or appendicitis" History of irritable bowel disease diagnosed in 2019 at [place] Acute dehydration: IV fluids Appendix is normal C diff negative, Shiga negative Placed on mesalamine 800 mg PO TID and prednisone tablets 40 mg p.o. daily Advanced diet as tolerated All tests came negative for irritable bowel disease GI Dr.N Avery thinks patient has infectious etiology for colitis rather than inflammatory etiology Advised to discharge the patient on mesalamine and Medrol Dosepak Discharge Disposition: Home Discharge Instruct/Medications Diet: Regular Activity: Light activity Follow Up/Referral: Follow up with GI Dr. Elis Avery in two weeks Use Medications as prescribed Medications: Mesalamine Medrol Dosepak Transmitted to the pharmacy 35 (Time taken for discharge summary 35 minutes) Discharge Statement: "Patient was advised to return to the ER or call 911 if any headaches, dizziness, shortness of breath, chest pain, abdominal pain, bleeding, fevers, or worsening of medical condition. Patient was counseled about treatment plan, medications, possible side effects, patientverbalized understanding. All questions were answered to the best of my ability. This discharge took greater then 30 minutes in planning, reviewing documentation, counseling the patient, and discussing with other team members." ASSESSMENT ASSESSMENT Hospital Course Improved Assessment Acute abdominal pain Acute ascending colitis: Rocephin Flagyl [place] : Consult for GI Dr. Elis Avery appreciated, rule out IBD, tests pending, Status post colonoscopy by Dr. Elis Avery on 11/18/2024 "1. Mild nonspecific colitis hyperemia and mucosal edema and some superficial areas of ulcerations and flecks of bleeding from which multiple biopsies were obtained 2. Normal-appearing appendiceal opening and normal distal terminal ileum without evidence of Crohn's ileitis or appendicitis" History of irritable bowel disease diagnosed in 2019 at [place] Acute dehydration: IV fluids Appendix is normal C diff negative, Shiga negative Placed on mesalamine 800 mg PO TID and prednisone tablets 40 mg p.o. daily Advanced diet as tolerated All tests came negative for irritable bowel disease GI Dr.N Avery thinks patient has infectious etiology for colitis rather than inflammatory etiology Advised to discharge the patient on mesalamine and Medrol Dosepak Date of Service: Nov 22, 2024 Billing Provider: CAMRYN RUSSELL MD Common Visit Codes: 66532-QMN/OBS DISCH DAY >30min CAMRYN RUSSELL MD Nov 22, 2024 08:21
== END 2024-11-22 09:23 | disposition home or self-care (01) | DRG 249 ==
LOC: ER 09:48 → OVERFLOW 16:19 → CENTRAL 11-16 06:13
PROVIDERS: ADMIT Family Medicine; ATTEND Family Medicine
PROC: 0DBE8ZX Excision of Large Intestine, Via Natural or Artificial Opening Endoscopic, Diagnostic (ICD-10-PCS; principal; 2024-11-18 13:41)
DX: K52.9 Noninfective gastroenteritis and colitis, unspecified (principal); E86.0 Dehydration; J45.909 Unspecified asthma, uncomplicated; Z88.5 Allergy status to narcotic agent; Z91.018 Allergy to other foods; Z79.1 Long term (current) use of non-steroidal anti-inflammatories (NSAID); Z79.2 Long term (current) use of antibiotics; Z79.899 Other long term (current) drug therapy
CPT/HCPCS: 36415; 74177; 80048; 80053; 81001; 85025; 85610; 86256; 86671; 86850; 86900; 86901; 87045; 87427; 87493; 94640; 96361; 96374; 97163; G0378; J2405; J2704; J3490

== ENCOUNTER 2025-02-02 12:34 | Inpatient (IN) | payer MEDICAID, OTHER ==
[~2025-02-02] VITALS: Ht 182.9 cm; Wt 93.1 kg
[~2025-02-02 12:34] MED LIST changes: +MESA1.2T PO
--- NOTE | 2025-02-02 13:06 | ED.PDOC ---
GI ASSESSMENT HPI Comments 19 y.o male presents to the ED for a chief complaint of abdominal pain associated with nausea, vomiting and diarrhea that started today. Patient was recent diagnosed with ulcerative colitis, was given multiple medications by ms sql developer Dr. Avery on 01/19/25 in which he has been compliant with taking. Patient's mother reports today he had a syncopal episode at home, woke up and had two episodes of non bloody non bilious emesis with worsening pain throughout the day. Patient denies any headaches, fever, chills, bloody stool, hematemesis, dysuria or hematuria. Chief Complaint: Nausea/Vomiting Time Seen by MD: 12:55 Primary Care Provider: UNKNOWN Reviewed Notes: Nurses Notes, Medications, Allergies Allergies: Coded Allergies: Morphine (Verified Allergy, Unknown, 08/28/24) Promethazine (Unverified Allergy, Unknown, 11/09/16) Uncoded Allergies: ENVIRONMENTlal (Allergy, Severe, 02/05/23) beans (Allergy, Severe, 02/05/23) Home Meds Active Scripts Methylprednisolone (Medrol Dosepak) 4 Mg Martín, 4 MG PO UD, #21 TAB UAD Prov:CAMRYN RUSSELL MD 11/22/24 Mesalamine (Lialda) 1.2 Gm Tab, 1.2 GM PO BID, #60 TAB Prov:CAMRYN RUSSELL MD 11/22/24 Meloxicam (Meloxicam) 7.5 Mg Tab, 1 TAB PO DAILY for 7 Days, #7 TAB 0 Refills Prov:DAYSI MEHTA MIX CHEMIST 10/13/23 Ibuprofen Micronized (Ibuprofen) 600 Mg Tab, 1 TAB PO Q6HR, #20 TAB As needed for pain Prov:DONAVAN APONTE Q MIX CHEMIST 07/15/23 Methylprednisolone (Medrol Dosepak) 4 Mg Martín, 4 MG PO UD, #21 TAB UAD Prov:VENESSA REZA 02/06/23 Tobramycin Sulfate (Tobrex) [address], 2 DROP OP QID, #5 DROP Prov:VENESSA REZA 02/06/23 Ciprofloxacin HCl (Ophth) (Ciprofloxacin Hydrochlori) 0.3 % Francine, 2 DROP OP QID, #5 ML Prov:VENESSA REZA 02/05/23 Reported Medications Olopatadine HCl (Olopatadine Hydrochloride) 0.2 % Francine, OP DAILYPRN, ML 08/28/24 Montelukast Sodium (Singulair) 10 Mg Tab, 25 MG PO BID, TAB 08/28/24 Loratadine (CLARITIN TABLET) 10 Mg Tb, 1 TAB PO DAILYPRN 08/28/24 Albuterol Sulfate (Albuterol Sulfate Hfa) 108 Mcg/Act Aer, 2 PUFF INH Q6HPRN PRN for SHORTNESS OF BREATH 08/28/24 Information Source: Patient, Relative (Mother) Mode of Arrival: Wheelchair Timing: Minutes Duration: Since onset Quality: Sharp Vomitus: Hard Stool: Loose Severity: Moderate Recent: None Recent Hx of: None Pain Location: Diffuse Modifying Factors: Nothing Associated sign and symptoms: Nausea, Vomiting, Diarrhea, Abdominal Pain Past Medical History PAST MEDICAL HISTORY: Asthma Past Medical History (Other): colitis Surgical History: Denies all surgeries Family History Family History: Reviewed,noncontributory to illness, Family hx of heart bhumi Social History Smoker: Non-Smoker Alcohol: Denies ETOH Use Drugs: Denies Drug Use Lives In: Home Constitutional: denies: chills, diaphoresis, fatigue, fever, malaise, sweats, weakness, others EENTM: denies: blurred vision, double vision, ear bleeding, ear discharge, ear drainage, ear pain, ear ringing, eye pain, eye redness, hearing loss, mouth pain, mouth swelling, nasal discharge, nose bleeding, nose congestion, nose pain, photophobia, tearing, throat pain, throat swelling, voice changes, others Respiratory: denies: cough, hemoptysis, orthopnea, SOB at rest, shortness of breath, SOB with excertion, stridor, wheezing, others Cardiovascular: reports: syncope; denies: chest pain, dizzy spells, diaphoresis, Dyspnea on exertion, edema, irregular heart beat, left arm pain, lightheadedness, palpitations, PND, others Gastrointestinal: reports: abdominal pain, diarrhea, nausea, vomiting; denies: abdomen distended, blood streaked bowels, constipated, dysphagia, difficulty swallowing, hematemesis, melena, poor appetite, poor fluid intake, rectal bleeding, rectal pain, others Genitourinary: denies: burning, dysuria, flank pain, frequency, hematuria, incontinence, penile discharge, penile sore, pain, testicle pain, testicle swelling, urgency, others Neurological: denies: dizziness, fainting, headache, left sided numbness, left sided weakness, numbness, paresthesia, pre-existing deficit, right sided numbness, right sided weakness, seizure, speech problems, tingling, tremors, weakness, others Musculoskeletal: denies: back pain, gout, joint pain, joint swelling, muscle pain, muscle stiffness, neck pain, others Integumetry: denies: bruises, change in color, change in hair/nails, dryness, laceration, lesions, lumps, rash, wounds, others Allergic/Immunocompromised: denies: Difficulty Healing, Frequent Infections, Hives, Itching, others Hematologic/Lymphatic: denies: anemia, blood clots, easy bleeding, easy bruising, swollen glands, others Endocrine: denies: excessive hunger, excessive sweating, excessive thirst, excessive urination, flushing, intolerance to cold, intolerance to heat, unexplained weight gain, unexplained weight loss, others Psychiatric: denies: anxiety, bipolar disorder, depression, hopeless, panic disorder, schizophrenia, sleepless, suicidal, others All Other Systems: Reviewed and Negative Physical Exam General Appearance: Moderate Distress HEENT: Normal ENT Inspection, Pharynx Normal, TMs Normal Neck: Full Range of Motion, Non-Tender, Normal, Normal Inspection Respiratory: Chest Non-Tender, Lungs Clear, No Accessory Muscle Use, No Respiratory Distress, Normal Breath Sounds Cardiovascular: No Edema, No JVD, No Murmur, No Gallop, Normal Peripheral Pulses, Regular Rate/Rhythm Breast Exam: Deferred Gastrointestinal: No Organomegaly, Non Tender, No Pulsatile Mass, Normal Bowel Sounds, Soft Genitalia: Deferred Pelvic: Deferred Rectal: Deferred Extremities: No calf tenderness, Normal capillary refill, Normal inspection, Normal range of motion, Non-tender, No pedal edema Musculoskeletal : Apperance: Normal Neurologic: Alert, fire control technician g II-XII nml as Tested, No Motor Deficits, Normal Affect, Normal Mood, No Sensory Deficits Cerebellar Function: NOT DONE Reflexes: NOT DONE Skin: Dry, Normal Color, Warm Peripheral Pulses: 3+ Radial (R), 3+ Radial (L) Lymphatic: No Adenopathy Was a procedure done? Was a procedure done?: No GI differential Dx Differential Diagnosis: Constipation, Diverticular disease, Esophagitis, Gastritis/PUD, Gastroenteritis, Inflammatory BD, Pancreatitis, Electrolyte Imbalance, Food Poisoning, Viral Other Differential Diagnosis Colitis X-Ray, Labs, Meds, VS Vital Signs Date Time Temp Pulse Resp B/P (MAP) Pulse Ox O2 Delivery O2 Flow Rate FiO2 02/02/25 12:48 97.5 77 17 124/77 (93) 95 97.5 Patient alert. Complaining of abdominal discomfort. History of Crohn's disease. Vitals stable. He is weak. Establish intravenous access. Was given fluids. Was given Zofran. Was given morphine. Reviewed his history. Continue to monitor. Time of 1ST Reevaluation: 13:06 Reevaluation 1ST: Unchanged Patient Education/Counseling: Diagnosis, Treatment, Prognosis Family Education/Counseling: Diagnosis, Treatment, Prognosis Departure 1 Departure Time of Disposition: 13:10 Impression: Primary Impression: Nonspecific colitis Disposition: ADMITTED INPATIENT Admit to: Med Surg Condition: Guarded Critical Care Note Critical Care Time?: No Stability Stability form required: No I personally scribed for ELMER KENYON MD ([email or web address]) on 02/02/25 at 13:06. Electronically submitted by Amanda Saeed ([facility]). ELMER KENYON MD Feb 02, 2025 13:06
[2025-02-02] MEDS: SODIUM CHLORIDE 0.9% 1,000 ML IV ONE ×2 (13:14→13:27)
[2025-02-02] MEDS: ONDANSETRON HCL 4 MG/2 ML VIAL IV ONE (13:29)
[2025-02-02] MEDS: HYDROmorphone HCL 2 MG/ML VL/or syr IV ONE (13:31)
[2025-02-02 13:39] LABS: Basophils # (auto) 0 10 ^3/uL (0-0.2); Basophils % (auto) 0.3 % (0.0-2.0); Eosinophils # (auto) 0.1 10 ^3/uL (0-0.8); Eosinophils % (auto) 1.6 % (0.0-7.0); Hematocrit 49.8 % (41.0-53.0); Lymphocytes # (auto) 1.5 10 ^3/uL (0.4-5.4); Lymphocytes % (auto) 16.8 % (10.0-50.0); Mean Corpuscular Hemoglobin 31.2 pg (28.0-32.0); Mean Corpuscular Hgb Conc. 34.2 g/dL (32.0-36.0); Mean Corpuscular Volume 91.1 fL (80.0-100.0); Monocytes # (auto) 0.6 10 ^3/uL (0-1.3); Monocytes % (auto) 6.7 % (0.0-12.0); Neutrophils # (auto) 6.5 10 ^3/uL (1.6-8.6); Neutrophils % (auto) 74.6 % (37.0-80.0); Nucleated Red Blood Cells % 0.1 %; Platelet Count (auto) 275 10^3/uL (140-450); Red Blood Cells 5.47 10^6/uL (4.5-5.90); Red Cell Distribution Width 13.9 % (11.8-14.3); White Blood Cell 8.7 10^3/uL (4.4-10.8)
--- NOTE | 2025-02-02 13:43 | DVH ---
Exam: CT CT AB PEL WO CON-NO ORAL OR IV History: colitis Comparison Study: 08/28/2024 Technique: Multidetector spiral CT of the abdomen and pelvis was performed from lung bases to pubic symphysis. Imaging was performed without IV contrast. Axial, coronal and sagittal multiplanar reform ats were obtained from the axial data set by the technologist. Radiation dose : Abdomen/Pelvis: CTDIvol 14.49 mGy, DLP 807.64 mGy*cm. Findings: Evaluation of solid organs is limited due to lack of intravenous contrast use. Lung Bases: No acute or significant lung base finding. Normal heart size. No pleural or pericardial effusion. Liver: The liver is normal in size. No focal lesions. Gallbladder and biliary Tree: Unremarkable Spleen: Unremarkable Pancreas: The pancreas is grossly normal in appearance. Adrenal Glands: Unremarkable Kidneys: Kidneys are grossly normal without calculi or hydronephrosis. Bladder: Grossly unremarkable for degree of distention. Bowel: The stomach is grossly normal in appearance. Small bowel and colon are normal in caliber and d istribution. Normal appendix is visualized in the right lower quadrant without findings of appendicit is. Ascites: Absent Lymphadenopathy: Subcentimeter right lower quadrant lymph nodes noted. Abdominal wall and Mesentery: Unremarkable. Vasculature: The visualized abdominal aorta is normal in size and caliber. Evaluation of abdominal a nd pelvic vessels is limited due to lack of intravenous contrast. Pelvic Organs: Unremarkable Musculoskeletal: No aggressive focal bony lesions, acute fractures or dislocation. IMPRESSION: 1. No acute abdominal or pelvic findings. Subcentimeter right lower quadrant lymph nodes similar to p rior. Radiation optimization: All CT scans at this facility use at least one of these dose optimization oliva hniques: Automated exposure control mA and/or kV adjustment per patient size (includes targeted exams where dose is matched to clinical indication) or iterative reconstruction. HS:Y
[2025-02-02 13:55] LABS: Alanine Aminotransferase 28 U/L (7-40); Alkaline Phosphatase 88 U/L (46-116); Anion Gap 9 (5-15); Aspartate Aminotransferase 17 U/L (13-40); BUN/Creatinine Ratio 11.5 (10.0-20.0); Blood Urea Nitrogen 11 mg/dL (9-23); Carbon Dioxide 24 mmol/L (20-31); Chloride 106 mmol/L (98-107); Glucose 85 mg/dL (74-106); Potassium 4.2 mmol/L (3.5-5.1); Sodium 139 mmol/L (136-145); Total Protein 8.1 g/dL (5.7-8.2)
[2025-02-02 13:56] LABS: Bilirubin, Total 0.8 mg/dL (0.2-1.0); Calcium 10.6 mg/dL (8.7-10.4)
[2025-02-02 14:11] LABS: Urine Bacteria None Seen /hpf (None Seen)
[2025-02-02 14:22] LABS: Urine Blood Negative /uL (Negative); Urine Clarity Clear (Clear); Urine Color Light-Yellow (Yellow); Urine Mucus FEW (None Seen); Urine Protein, UAD Negative (Negative); Urine Specific Gravity 1.017 (1.001-1.035); Urine Squamous Epithelial Cell None Seen /hpf (<5); Urine Urobilinogen Normal (Negative); Urine WBC < 1 /HPF (0-3)
--- NOTE | 2025-02-02 20:42 | DVHHPRES ---
History of Present Illness Resident Creating Document: MARI STRICKLAND RESIDENT History of Present Illness Mr. Fuentes, a 19-year-old male with a history of seasonal allergy, asthma and irritable bowel disease (IBD) diagnosed in 2019, newly diagnosed ulcerative colitis presented to the emergency department with acute abdominal pain, nausea, vomiting, and diarrhea that began earlier that day. He recently started treatment for ulcerative colitis prescribed by Dr. Avery on 01/19/25 and has been compliant with his medications but not able to tolerate oral mesalamine. On the day of presentation, he experienced a syncopal episode at home followed by two episodes of non-bloody, non-bilious vomiting and worsening abdominal pain, particularly in the right upper and lower quadrants, rated 6/10, that did not subside with tylenol. He denied other systemic symptoms such as fever, chills, or bloody stool. His labs and abdominal CT were unremarkable, and he was afebrile, stable, and eating healthy.He denies smoking, alcohol, or drug use and has no surgical history. A prior colonoscopy on 11/18/24 showed mild nonspecific colitis with negative biopsies for appendicitis but recently was. Previous hospitalization revealed exacerbation and was treated with IV fluids, hydromorphone, ondansetron, Rocephin, and Flagyl, resulting in significant symptom improvement. Patient follows with Dr. Avery as primary GI and PCP Dr. Hernandez with [facility]. Past Medical History seasonal allergy, asthma and irritable bowel disease (IBD) diagnosed in 2019, newly diagnosed ulcerative colitis Past Surgical History: None Family History Noncontributory Smoke: No ALCOHOL: none Drugs: None Lives: with Family Review of Systems Constitutional: Yes: Other Eyes: No: Pain, Vision change, Conjunctivae inflammation, Eyelid inflammation, Other, Redness ENT: No: Ear pain, Ear discharge, Nose pain, Nose discharge, Nose congestion, Mouth pain, Mouth swelling, Throat pain, Throat swelling, Other Respiratory: No: Cough, Dry, Shortness of breath, SOB with excertion, Wheezing, Hemoptysis, Pleuritic Pain, Sputum, Wheezing, Other Cardiovascular: No: Chest Pain, Palpitations, Orthopnea, Paroxysmal Noc. Dyspnea, Edema, Lt Headedness, Other Gastrointestinal: Nausea, Vomiting, Abdominal Pain, Diarrhea, Hematochezia Genitourinary: No Dysuria, No Frequency, No Incontinence, No Hematuria, No Retention, No Other Musculoskeletal: other (right knee and elbow pain ); No: neck pain, shoulder pain, arm pain, back pain, hand pain, leg pain, foot pain Skin: Rash; No: Lesions, Jaundice, Bruising, Other Neurological: No: Weakness, Numbness, Incoordination, Change in speech, Confusion, Seizures, Other Allergies: Coded Allergies: Morphine (Verified Allergy, Unknown, 08/28/24) Promethazine (Unverified Allergy, Unknown, 11/09/16) Uncoded Allergies: ENVIRONMENTlal (Allergy, Severe, 02/05/23) beans (Allergy, Severe, 02/05/23) Medications Current Medications Medications Dose Ordered Sig/Jad Route Start Time Stop Time Status Last Admin Dose Admin Sodium Chloride 1,000 ml @ 60 mls/hr [id number] IV 02/02/25 20:45 UNV Acetaminophen/ Hydrocodone Bitart 1 tab Q4HP PRN PO 02/02/25 20:45 UNV Ondansetron HCl 4 mg Q4HP PRN IV 02/02/25 20:45 UNV Acetaminophen 650 mg Q6HP PRN PO 02/02/25 20:45 UNV Nitroglycerin 0.4 mg Q5MINP PRN SL 02/02/25 20:45 UNV Morphine Sulfate 2 mg Q30M PRN IV 02/02/25 20:45 UNV Exam Vital Signs Vital Signs Date Time Temp Pulse Resp B/P (MAP) Pulse Ox O2 Delivery O2 Flow Rate FiO2 02/02/25 19:35 72 16 120/62 (81) 97 02/02/25 16:43 98.2 98.2 02/02/25 13:31 Room Air General Appearance: Alert, Oriented X3, Cooperative, mild distress HEENT: Atraumatic, PERRLA, EOMI, Mucous membr. moist/pink (Of friends show INR values LR mass case illegal immigrant) Respiratory: Clear to auscultation, Normal air movement Cardiovascular: Regular rate, Normal S1, Normal S2, No murmurs, Gallops, Rubs, Other Abdominal: Normal bowel sounds (Low), Soft, Other (tenderness + RUQ and RLQ ) Extremities: No clubbing, No cyanosis, No edema, Normal pulses, No tenderness/swelling Skin: No rashes (Situation), No breakdown, No significant lesion Neuro: Normal gait, Normal speech, Strength at 5/5 X4 ext, Normal tone, Sensation intact, Cranial nerves 3-12 NL, Reflexes 2+ (The the) Psych/Mental Status: Mental status NL, Mood NL Labs/Xrays Labs Test 02/02/25 13:35 02/02/25 13:23 Range/Units Urine Color Light-yellow Yellow Urine Clarity Clear Clear Urine pH 7.0 5.0-9.0 Urine Specific [place] 1.017 1.001-1.035 Urine Protein Negative Negative Urine Ketones Negative Negative Urine Blood Negative Negative /uL Urine Nitrite Negative Negative Urine Bilirubin Negative Negative Urine Urobilinogen Normal Negative mg/dL Urine Leukocyte Esterase Negative Negative /uL Urine RBC 1 0 - 3 /hpf Urine Microscopic WBC < 1 0-3 /HPF Urine Squamous Epithelial Cells None seen <5 /hpf Urine Bacteria None seen None Seen /hpf Urine Mucus Few None Seen Urine Glucose Normal Normal mg/dL White Blood Count 8.7 4.4-10.8 10^3/uL Red Blood Count 5.47 4.5-5.90 10^6/uL Hemoglobin 17.0 13.5-17.5 g/dL Hematocrit 49.8 41.0-53.0 % Mean Corpuscular Volume 91.1 80.0-100.0 fL Mean Corpuscular Hemoglobin 31.2 28.0-32.0 pg Mean Corpuscular Hemoglobin Concent 34.2 32.0-36.0 g/dL Red Cell Distribution Width 13.9 11.8-14.3 % Platelet Count 275 140-450 10^3/uL Mean Platelet Volume 7.9 6.9-10.8 fL Neutrophils (%) (Auto) 74.6 37.0-80.0 % Lymphocytes (%) (Auto) 16.8 10.0-50.0 % Monocytes (%) (Auto) 6.7 0.0-12.0 % Eosinophils (%) (Auto) 1.6 0.0-7.0 % Basophils (%) (Auto) 0.3 0.0-2.0 % Neutrophils # (Auto) 6.5 1.6-8.6 10 ^3/uL Lymphocytes # (Auto) 1.5 0.4-5.4 10 ^3/uL Monocytes # (Auto) 0.6 0-1.3 10 ^3/uL Eosinophils # (Auto) 0.1 0-0.8 10 ^3/uL Basophils # (Auto) 0 0-0.2 10 ^3/uL Nucleated Red Blood Cells 0.1 % Sodium Level 139 136-145 mmol/L Potassium Level 4.2 3.5-5.1 mmol/L Chloride Level 106 98-107 mmol/L Carbon Dioxide Level 24 20-31 mmol/L Anion Gap 9 5-15 Blood Urea Nitrogen 11 9-23 mg/dL Creatinine 0.96 0.700-1.30 mg/dL Glomerular Filtration Rate Calc 116 >90 mL/min BUN/Creatinine Ratio 11.5 10.0-20.0 Serum Glucose 85 74-106 mg/dL Calcium Level 10.6 H 8.7-10.4 mg/dL Total Bilirubin 0.8 0.2-1.0 mg/dL Aspartate Amino Transferase (AST) 17 13-40 U/L Alanine Aminotransferase (ALT) 28 7-40 U/L Alkaline Phosphatase 88 46-116 U/L Total Protein 8.1 5.7-8.2 g/dL Albumin 5.0 H 3.2-4.8 g/dL Assessment/Plan Assessment/Plan Assessment: # acute abdominal pain for past 2 days crampy, associated with watery diarrhea 12-15 times per day with bleeding among 2-3 times unchanged since past 2 3 months, without surgical complication or perforation # above likely due to ulcerative colitis # possible gastroenteritis # likely flare of ulcerative colitis # ruled out other GI pathology with negative lab work and CT abdomen pelvis. # seasonal allergy on loratadine # asthma with rescue inhaler of albuterol as needed. # possible celiac disease under investigation # possible inflammatory arthritis secondary to inflammatory bowel disease, without deformity # previous history of colitis # History of irritable bowel disease diagnosed in 2019 at [place] # Acute dehydration, status post IV fluid # stool workup pending for infectious pathologies including C diff. # intolerance to mesalamine 800 mg p.o. t.i.d. waiting for Lialda 1.2 gram # mild hyperbilirubinemia # syncopal episode likely vasovagal attack need to pain, hemodynamically stable # watery diarrhea with occasional hematochezia # gastroesophageal reflux disease/gastritis Plan: # IV fluid to continue # IV Solu-Medrol, further management with local rectal mesalamine as oral is not tolerated. # GI consulted # RUQ ultrasound to rule out any hepatobiliary pathology as tenderness persists with mild bilirubinemia # NPO for now for possible in-hospital scope # advanced diet as tolerated with gluten free diet # abdominal pain and cramps Bentyl and as needed [place] # as needed albuterol for asthma # daily daughter in for seasonal allergy # iron panel to check # orthostatic vitals, echo, close monitoring with fluid challenge. # DVT prophylaxis with ambulation and as needed compression stocks # PPI and sucralfate to continue # avoid NSAIDs and anticoagulants. # complete syncopal episode workup with orthostatic vitals, echo, 12 lead EKG, and telemetry monitoring although high probability of vasovagal based on clinical history Code status: Full code, discussed at bedside over 37 minutes. Remains admitted in hospital for further management and care. Patient agreeable to the plan of care. Discussed with Dr. Infante. Plan discussed with: Patient My Orders Orders - MARI STRICKLAND RESIDENT Procedure Category Date Status Time Admit ADMIT 02/02/25 Transmitted 20:32 Allergies DEBBIE 02/02/25 In Process 20:32 Code Status CODE 02/02/25 Transmitted 20:32 Sodium Chloride 0.9% PHA 02/02/25 Logged 20:45 Hydrocodone-Acet PHA 02/02/25 Logged 5/325mg Tab ([place] 20:45 Ondansetron Hcl PHA 02/02/25 Logged (Zofran) 20:45 Complete Blood Count LAB 02/03/25 Verified 04:00 Comprehensive LAB 02/03/25 Verified Metabolic Panel 04:00 Npo (Nothing By DIET 02/03/25 Transmitted Mouth) Diet Breakfast Condition: Fair DEBBIE 02/02/25 In Process 20:32 Acetaminophen Tablet PHA 02/02/25 Logged (Tylenol Tablet) 20:45 Sequential DEBBIE 02/02/25 In Process Compression Device Nitroglycerin PHA 02/02/25 Logged Sublingual (Ntrostat 20:45 Morphine Sulfate PHA 02/02/25 Logged Injection 20:45 Oxygen By Nasal RT 02/02/25 Transmitted Cannula 20:32 Stat Ekg For Chest DEBBIE 02/02/25 In Process Pain 20:32 Notify Of Changes DEBBIE 02/02/25 In Process From Base 20:32 Steam Table Attendant For DEBBIE 02/02/25 In Process 24 Hours 20:32 Emergency Dysrhythmia DEBBIE 02/02/25 In Process Protocol 20:32 Rhythm Strips Once DEBBIE 02/02/25 In Process Every Shift 20:32 Drug Screen LAB 02/02/25 Transmitted 20:35 Stool Wbc LAB 02/02/25 Transmitted 20:35 Stool Bacterial TEN 02/02/25 Transmitted Culture 20:35 Stool Occult Blood LAB 02/02/25 Transmitted 20:35 Clostridium Difficile TEN 02/02/25 Transmitted Toxin 20:35 C-Reactive Protein LAB 02/02/25 Transmitted 20:35 Erythrocyte LAB 02/02/25 Transmitted Sedimentation Rate 20:35 Thyroid Stimulating LAB 02/02/25 Transmitted Hormone 20:35 Date of Service: Feb 02, 2025 Billing Provider: GABRIEL INFANTE MD Common Visit Codes: 67723-[id number] INP/OBS CARE (HIGH) Secondary Visit Codes: 18622-[id number] CARE PLAN 30 MINUTES (Trended and also like where) MARI STRICKLAND RESIDENT Feb 02, 2025 20:41 GABRIEL INFANTE MD Feb 05, 2025 22:14
[2025-02-02] MEDS: SODIUM CHLORIDE 0.9% 1,000 ML IV SCH (20:45)
[2025-02-02] MEDS ORDERED: MORPHINE SULFATE INJ 2 MG/ml SYRG IV PRN (20:45)
[2025-02-02] MEDS ORDERED: NITROGLYCERIN 0.4 MG SL TAB SL PRN (20:45)
[2025-02-02] MEDS ORDERED: ONDANSETRON HCL 4 MG/2 ML VIAL IV PRN (20:45)
[2025-02-02] MEDS: HYDROcodone-ACET 5/325MG TAB PO PRN (21:52)
[2025-02-02 22:39] LABS: Erythrocyte Sedimentation Rate 2 mm/hr (0-20)
[2025-02-02 22:58] LABS: Amphetamine Screen, Urine Neg (NEGATIVE); Barbiturate Scree,Urine Neg (NEGATIVE); Benzodiazephine Screen, Urine Neg (NEGATIVE); Cannabinoid Screen, Urine Neg (NEGATIVE); Cocaine Screen, Urine Neg (NEGATIVE); Opiate Scree,Urine Neg (NEGATIVE); Phencyclidine Screen, Urine Neg (NEGATIVE)
[2025-02-03] VITALS (8 sets, daily range): BP systolic 113–128; BP diastolic 56–71; PULSE 57–114; RESP 12–19; TEMP 97.5–98; O2SAT 94–99
[2025-02-03] MEDS: ACETAMINOPHEN 325 MG TAB PO PRN (02:11)
[2025-02-03 05:16] LABS: Basophils # (auto) 0 10 ^3/uL (0-0.2); Basophils % (auto) 0.3 % (0.0-2.0); Eosinophils # (auto) 0.3 10 ^3/uL (0-0.8); Eosinophils % (auto) 3.7 % (0.0-7.0); Hematocrit 46.2 % (41.0-53.0); Hemoglobin 15.7 g/dL (13.5-17.5); Lymphocytes # (auto) 2.1 10 ^3/uL (0.4-5.4); Lymphocytes % (auto) 29.6 % (10.0-50.0); Mean Corpuscular Hemoglobin 31.2 pg (28.0-32.0); Mean Corpuscular Hgb Conc. 34.1 g/dL (32.0-36.0); Mean Corpuscular Volume 91.6 fL (80.0-100.0); Monocytes # (auto) 0.7 10 ^3/uL (0-1.3); Monocytes % (auto) 9.2 % (0.0-12.0); Neutrophils # (auto) 4.1 10 ^3/uL (1.6-8.6); Neutrophils % (auto) 57.2 % (37.0-80.0); Platelet Count (auto) 207 10^3/uL (140-450); Red Blood Cells 5.04 10^6/uL (4.5-5.90); Red Cell Distribution Width 13.6 % (11.8-14.3); White Blood Cell 7.2 10^3/uL (4.4-10.8)
[2025-02-03 05:25] LABS: Alanine Aminotransferase 28 U/L (7-40); Albumin 4.6 g/dL (3.2-4.8); Alkaline Phosphatase 83 U/L (46-116); Anion Gap 8 (5-15); Aspartate Aminotransferase 14 U/L (13-40); BUN/Creatinine Ratio 11.7 (10.0-20.0); Bilirubin, Total 1.2 mg/dL (0.2-1.0); Blood Urea Nitrogen 12 mg/dL (9-23); Calcium 10.3 mg/dL (8.7-10.4); Carbon Dioxide 26 mmol/L (20-31); Chloride 105 mmol/L (98-107); Glucose 80 mg/dL (74-106); Potassium 4.7 mmol/L (3.5-5.1); Sodium 139 mmol/L (136-145); Total Protein 7.4 g/dL (5.7-8.2)
[2025-02-03] MEDS: MESALAMINE 4 GM/60 ML RC PR ONE (08:00)
[2025-02-03] MEDS: SUCRALFATE 1 GM/10 ML ORAL SUSP PO ONE (09:00)
[2025-02-03] MEDS: methylPREDNISolone SOD SUCC 40 MG/ML VL IV ONE (09:00)
[2025-02-03 09:02] LABS: % Iron Saturation 35.1 % (20-55)
[2025-02-03] MEDS: PANTOPRAZOLE 40 MG/10 ML VIAL INJ IV SCH (09:58)
[2025-02-03] MEDS: DICYCLOMINE HCL 10 MG CAP PO SCH (10:00)
[2025-02-03] MEDS: LORATADINE 10 MG TAB PO SCH (10:00)
--- NOTE | 2025-02-03 10:18 | DVH ---
INDICATION: RUQ pain TECHNIQUE: Multiple real-time sonographic images were obtained of the right upper quadrant. COMPARISON: US GALLBLADDER on DOS: 08/28/24 FINDINGS: The liver demonstrates heterogeneous s echotexture without focal mass lesions. The liver me asures 17 cm. There is no intrahepatic or extrahepatic ductal dilatation. The common duct measures 0.6 mm. The gallbladder is without evidence of stone or sludge. The gallbladder wall measures 0.2mm and is within normal limits. The right kidney measures 11 cm. The right kidney is normal in contour, size, and shape. The echog enicity is normal. There is no hydronephrosis. The pancreas is not well visualized due to overlying bowel gas. IMPRESSION: No sonographic evidence of gallstones or acute cholecystitis. Hepatic steatosis/ hepatomegaly.
[2025-02-03] MEDS: ALBUTEROL SULF 2.5 MG/0.5ML(0.5%) NEB SOLN NEB SCH (11:33)
--- NOTE | 2025-02-03 14:03 | DVHINCON2 ---
Date of service: Feb 03, [address] Antonio Reason for Consultation Abdominal pain nausea vomiting and diarrhea History of Present Illness This 19-year-old male has history of asthma and is admitted with complaints of abdominal pain diarrhea apparently with nausea vomiting also apparently has symptoms started suddenly with the morning with complaints of abdominal pain and diarrhea. She almost passed out in the bed. In the his brought to the emergency room by his family and admitted because of problems with diarrhea as well as history of colitis Patient was here in the in the month of October with diarrhea and nausea and abdominal pain and was had a colonoscopy workup done which showed that there was evidence of left-sided colitis as per the patient has been put on mesalamine 1st and then Lialda apparently he could not tolerate that as per the patient. Also on currently budesonide Claims to have a few bouts of diarrhea about 10-12 diarrhea episodes No gross bleeding no fever or other systemic symptoms. No hematemesis or melena Past Medical History History of colitis and history of allergy and asthma Past Surgical History Unremarkable Family History: Cardiac pacemaker G8 MOTHER Cardiovascular disease G8 MOTHER FH: gallbladder disease G8 SISTER Prostate carcinoma (prostate cancer was diagnosed in mothers father and mothers uncle) Family History Noncontributory Social History Denies smoking or drinking drug allergy he is studying for [employer] Allergies: Coded Allergies: Morphine (Verified Allergy, Unknown, 08/28/24) Promethazine (Unverified Allergy, Unknown, 11/09/16) Uncoded Allergies: ENVIRONMENTlal (Allergy, Severe, 02/05/23) beans (Allergy, Severe, 02/05/23) Home Meds Active Scripts Methylprednisolone (Medrol Dosepak) 4 Mg Martín, 4 MG PO UD, #21 TAB UAD Prov:CAMRYN RUSSELL MD 11/22/24 Mesalamine (Lialda) 1.2 Gm Tab, 1.2 GM PO BID, #60 TAB Prov:CAMRYN RUSSELL MD 11/22/24 Meloxicam (Meloxicam) 7.5 Mg Tab, 1 TAB PO DAILY for 7 Days, #7 TAB 0 Refills Prov:DAYSI MEHTA BODY AND FENDER MECHANIC APPRENTICE 10/13/23 Ibuprofen Micronized (Ibuprofen) 600 Mg Tab, 1 TAB PO Q6HR, #20 TAB As needed for pain Prov:DONAVAN APONTE BODY AND FENDER MECHANIC APPRENTICE 07/15/23 Methylprednisolone (Medrol Dosepak) 4 Mg Martín, 4 MG PO UD, #21 TAB UAD Prov:VENESSA REZA 02/06/23 Tobramycin Sulfate (Tobrex) [address], 2 DROP OP QID, #5 DROP Prov:VENESSA REZA 02/06/23 Ciprofloxacin HCl (Ophth) (Ciprofloxacin Hydrochlori) 0.3 % Francine, 2 DROP OP QID, #5 ML Prov:VENESSA REZA 02/05/23 Reported Medications Olopatadine HCl (Olopatadine Hydrochloride) 0.2 % Francine, OP DAILYPRN, ML 08/28/24 Montelukast Sodium (Singulair) 10 Mg Tab, 25 MG PO BID, TAB 08/28/24 Loratadine (CLARITIN TABLET) 10 Mg Tb, 1 TAB PO DAILYPRN 08/28/24 Albuterol Sulfate (Albuterol Sulfate Hfa) 108 Mcg/Act Aer, 2 PUFF INH Q6HPRN PRN for SHORTNESS OF BREATH 08/28/24 Current Medications Current Medications Medications (Trade) Dose Ordered Sig/Jad Route PRN Reason Start Time Stop Time Status Last Admin Sodium Chloride 1,000 ml @ 60 mls/hr [id number] IV 02/02/25 20:45 02/03/25 02:14 Acetaminophen/ Hydrocodone Bitart ([place] 5/325MG Tab) 1 tab Q4HP PRN PO MODERATE PAIN (4-6 PAIN SCALE) 02/02/25 20:45 02/02/25 21:52 Ondansetron HCl (Zofran) 4 mg Q4HP PRN IV NAUSEA / VOMITING 02/02/25 20:45 Acetaminophen (Tylenol Tablet) 650 mg Q6HP PRN PO PAIN SCALE 1-3 OR TEMP>100.4 02/02/25 20:45 02/03/25 02:11 Nitroglycerin (Ntrostat Sublingual) 0.4 mg Q5MINP PRN SL FOR CHEST PAIN 02/02/25 20:45 Morphine Sulfate 2 mg Q30M PRN IV FOR CHEST PAIN 02/02/25 20:45 Albuterol (Ventolin Medneb) 2.5 mg Q6HWA NEB 02/03/25 12:00 02/03/25 11:33 Loratadine (Claritin Tablet) 10 mg DAILY PO 02/03/25 10:00 02/03/25 10:00 Mesalamine ([place] Rectal) 4 gm HS FL 02/04/25 22:00 02/03/25 12:20 DC Pantoprazole Sodium (Protonix) 40 mg DAILY IV 02/03/25 10:00 02/03/25 09:58 Sucralfate (Carafate Susp) 1 gm BID@0600,2200 PO 02/03/25 22:00 Dicyclomine HCl (Bentyl Capsule) 10 mg BID PO 02/03/25 10:00 02/03/25 10:00 Mesalamine ([place] Rectal) 1 gm HS FL 02/03/25 22:00 Methylprednisolone Sodium Succinate (Solu Medrol) 20 mg BID IV 02/03/25 22:00 Review of Systems Noncontributory Vital Signs Vital Signs Date Time Temp Pulse Resp B/P (MAP) Pulse Ox O2 Delivery O2 Flow Rate FiO2 02/03/25 12:00 98.3 85 24 108/58 (75) 94 98.3 02/03/25 11:33 0.0 21 02/03/25 11:33 Room Air Physical Exam Moderately built and nourished male in no acute distress Vitals stable HEENT examination no pallor or icterus Lungs clear Cardiovascular unremarkable Abdomen is soft mild nonspecific tenderness in right upper and right lower quadrant no rigidity no guarding no mass bowel sounds are normal Extremities no edema Neurological grossly intact Labs/Diagnostic Data Labs Test 02/03/25 04:24 02/02/25 21:02 02/02/25 13:35 02/02/25 13:23 Range/Units White Blood Count 7.2 4.4-10.8 10^3/uL Red Blood Count 5.04 4.5-5.90 10^6/uL Hemoglobin 15.7 13.5-17.5 g/dL Hematocrit 46.2 41.0-53.0 % Mean Corpuscular Volume 91.6 80.0-100.0 fL Mean Corpuscular Hemoglobin 31.2 28.0-32.0 pg Mean Corpuscular Hemoglobin Concent 34.1 32.0-36.0 g/dL Red Cell Distribution Width 13.6 11.8-14.3 % Platelet Count 207 140-450 10^3/uL Mean Platelet Volume 7.5 6.9-10.8 fL Neutrophils (%) (Auto) 57.2 37.0-80.0 % Lymphocytes (%) (Auto) 29.6 10.0-50.0 % Monocytes (%) (Auto) 9.2 0.0-12.0 % Eosinophils (%) (Auto) 3.7 0.0-7.0 % Basophils (%) (Auto) 0.3 0.0-2.0 % Neutrophils # (Auto) 4.1 1.6-8.6 10 ^3/uL Lymphocytes # (Auto) 2.1 0.4-5.4 10 ^3/uL Monocytes # (Auto) 0.7 0-1.3 10 ^3/uL Eosinophils # (Auto) 0.3 0-0.8 10 ^3/uL Basophils # (Auto) 0 0-0.2 10 ^3/uL Nucleated Red Blood Cells 0.0 % Sodium Level 139 136-145 mmol/L Potassium Level 4.7 3.5-5.1 mmol/L Chloride Level 105 98-107 mmol/L Carbon Dioxide Level 26 20-31 mmol/L Anion Gap 8 5-15 Blood Urea Nitrogen 12 9-23 mg/dL Creatinine 1.03 0.700-1.30 mg/dL Glomerular Filtration Rate Calc 107 >90 mL/min BUN/Creatinine Ratio 11.7 10.0-20.0 Serum Glucose 80 74-106 mg/dL Calcium Level 10.3 8.7-10.4 mg/dL Iron Level 113 65-175 ug/dL Total Iron Binding Capacity 322 250-425 ug/dL Percent Iron Saturation 35.1 20-55 % Ferritin 89.1 22-322 ng/mL Total Bilirubin 1.2 H 0.2-1.0 mg/dL Aspartate Amino Transferase (AST) 14 13-40 U/L Alanine Aminotransferase (ALT) 28 7-40 U/L Alkaline Phosphatase 83 46-116 U/L Total Protein 7.4 5.7-8.2 g/dL Albumin 4.6 3.2-4.8 g/dL Erythrocyte Sedimentation Rate 2 0-20 mm/hr Urine Color Light-yellow Yellow Urine Clarity Clear Clear Urine pH 7.0 5.0-9.0 Urine Specific [place] 1.017 1.001-1.035 Urine Protein Negative Negative Urine Ketones Negative Negative Urine Blood Negative Negative /uL Urine Nitrite Negative Negative Urine Bilirubin Negative Negative Urine Urobilinogen Normal Negative mg/dL Urine Leukocyte Esterase Negative Negative /uL Urine RBC 1 0 - 3 /hpf Urine Microscopic WBC < 1 0-3 /HPF Urine Squamous Epithelial Cells None seen <5 /hpf Urine Bacteria None seen None Seen /hpf Urine Mucus Few None Seen Urine Glucose Normal Normal mg/dL Urine Opiates Screen Neg NEGATIVE Urine Fentanyl Screen Neg NEGATIVE Urine Barbiturates Screen Neg NEGATIVE Urine Phencyclidine Screen Neg NEGATIVE Urine Amphetamines Screen Neg NEGATIVE Urine Benzodiazepines Screen Neg NEGATIVE Urine Cocaine Screen Neg NEGATIVE Urine Cannabinoids Screen Neg NEGATIVE C-Reactive Protein High Sensitivity 0.09 <1.0 mg/dL Lipase 27 12-53 U/L Thyroid Stimulating Hormone (TSH) 1.14 0.55-4.78 uIU/mL Assessment 19-year-old with a history of colitis now presenting with complaints of abdominal pain nausea vomiting and diarrhea. Still having some bowel movements. Apparently could not tolerate mesalamine or Lialda for the treatment of the colitis Physical examination is unremarkable abdomen is soft nontender except minimally in the right upper and lower quadrant No masses Labs were essentially unremarkable Clinical impression is possible ulcerative colitis exacerbation other colitis like infectious or other pathology also can not be excluded Plan/Recommendation will recommend stool studies for O&P C&S and C diff will we will recommend to try to see if we can start him on Azulfidine (sulfasalazine )500 b.i.d. or so since seasonal allergic to sulfa to see if the history can tolerate that will recommend folic acid 1 mg b.i.d. of the symptoms with the Azulfidine will also recommend treatment with Flagyl Patient had a colonoscopic evaluation in October and no indication for any other endoscopic workup at this time unless severe bleeding Symptoms are still not controlled may have to consider steroids and if necessary even biologicals We will recommend calprotectin level as well as C-reactive protein or sed rate also Thank you Dr. Mojica Plan discussed with: Patient JANICE MOJICA MD Feb 03, 2025 14:03
[2025-02-03] MEDS: FOLIC ACID 1 MG TAB PO ONE (15:59)
[2025-02-03] MEDS: metroNIDAZOLE 500MG/100ML 100 ML IV ONE (15:59)
[2025-02-03] MEDS: sulfaSALAzine 500 MG TAB PO ONE (16:12)
--- NOTE | 2025-02-03 18:57 | DVHPNRES ---
Progress Note Date Seen: Feb 03, 2025 Resident Creating Document: ELVIA OSCAR RESIDENT Medical Necessity Reason Pt with a Central, PICC or Fol: No Subjective Review of Systems Mr. Fuentes, a 19-year-old male with a history of seasonal allergy, asthma and irritable bowel disease (IBD) diagnosed in 2018, newly diagnosed ulcerative colitis presented to the emergency department with acute abdominal pain, nausea, vomiting, and diarrhea that began earlier that day. He recently started treatment for ulcerative colitis prescribed by Dr. Avery on 01/19/25 and has been compliant with his medications but not able to tolerate oral mesalamine. On the day of presentation, he experienced a syncopal episode at home followed by two episodes of non-bloody, non-bilious vomiting and worsening abdominal pain, particularly in the right upper and lower quadrants, rated 6/10, that did not subside with tylenol. He denied other systemic symptoms such as fever, chills, or bloody stool. His labs and abdominal CT were unremarkable, and he was afebrile, stable, and eating healthy.He denies smoking, alcohol, or drug use and has no surgical history. A prior colonoscopy on 11/18/24 showed mild nonspecific colitis with negative biopsies for appendicitis but recently was. Previous hospitalization revealed exacerbation and was treated with IV fluids, hydromorphone, ondansetron, Rocephin, and Flagyl, resulting in significant symptom improvement. Patient follows with Dr. Avery as primary GI and PCP Dr. Hernandez with [facility]. PMH/PSH:seasonal allergy, asthma and irritable bowel disease (IBD) diagnosed in 2018, newly diagnosed ulcerative colitis Patient seen and examined at the bedside. GI consulted. Started sulfasalazine b.i.d.. Objective vital signs Vital Sign Date Time Temp Pulse Resp B/P (MAP) Pulse Ox O2 Delivery O2 Flow Rate FiO2 02/03/25 17:58 97.6 114 14 113/69 (84) 95 97.6 02/03/25 11:33 0.0 21 02/03/25 11:33 Room Air Total Intake and Output 02/02/25 02/02/25 02/03/25 15:00 23:00 07:00 Intake Total 300 ml Balance 300 ml medications Current Medications Medications Dose Ordered Sig/Jad Route Start Time Stop Time Status Last Admin Dose Admin Sodium Chloride 1,000 ml @ 60 mls/hr [id number] IV 02/02/25 20:45 02/03/25 02:14 60 MLS/HR Acetaminophen/ Hydrocodone Bitart 1 tab Q4HP PRN PO 02/02/25 20:45 02/02/25 21:52 1 TAB Ondansetron HCl 4 mg Q4HP PRN IV 02/02/25 20:45 Acetaminophen 650 mg Q6HP PRN PO 02/02/25 20:45 02/03/25 02:11 650 MG Nitroglycerin 0.4 mg Q5MINP PRN SL 02/02/25 20:45 Morphine Sulfate 2 mg Q30M PRN IV 02/02/25 20:45 Albuterol 2.5 mg Q6HWA NEB 02/03/25 12:00 02/03/25 11:33 2.5 MG Loratadine 10 mg DAILY PO 02/03/25 10:00 02/03/25 10:00 10 MG Pantoprazole Sodium 40 mg DAILY IV 02/03/25 10:00 02/03/25 09:58 40 MG Sucralfate 1 gm BID@0600,2200 PO 02/03/25 22:00 Dicyclomine HCl 10 mg BID PO 02/03/25 10:00 02/03/25 10:00 10 MG Mesalamine 1 gm HS MI 02/03/25 22:00 Methylprednisolone Sodium Succinate 20 mg BID IV 02/03/25 22:00 Metronidazole 100 ml @ 100 mls/hr Q8HR IV 02/03/25 22:00 Folic Acid 1 mg BID PO 02/03/25 22:00 Sulfasalazine 500 mg BID PO 02/03/25 22:00 Examination Patient lying in bed, in no acute distress General: Well-built, afebrile, palor, mucosae are moist Cardiovascular: Regular S1 and S2. No murmurs, gallops or rubs. No JVD elevation. No pedal edema Respiratory: Normal B/L air entry on room air. Clear lung sounds on auscultation Abdomen: Soft, diffuse tenderness nondistended, normoactive bowel sounds, no rebound tenderness, no organomegaly, no masses Genitourinary: Deferred MSK/skin: Mobilizes 4 limbs. Skin is dry and warm Neurological: No motor, no sensitive deficits, normal speech. Pupils are isocoric and reactive. Psych/Mental Status: A/Ox3 laboratory and microbiology Laboratory Tests 02/03/25 04:24 Test 02/03/25 04:24 Range/Units Serum Glucose 80 74-106 mg/dL Labs and/or images reviewed: Labs reviewed by me, Image(s) reviewed by me Problem List/Assessment/Plan Problem List/Assessment/Plan Bloody diarrhea secondary to possible Acute ulcerative colitis flare-up Acute gastroenteritis, likely infectious etiology ? Celiac disease ? Inflammatory arthritis without deformity History of IBS diagnosed 2018 [place] Rule out C diff GI consultation-started sulfasalazine 500 mg b.i.d. along with folic acid 1 mg p.o. b.i.d. Pending stool ova and parasite, pending C diff studies, pending stool culture IV metronidazole IV Solu-Medrol 20 mg b.i.d. 1 g mesalamine per rectal HS daily Iron panel unremarkable Liver ultrasound shows hepatic steatosis CT abdomen shows Subcentimeter right lower quadrant lymph nodes similar to prior. ESR , CRP WNL Pantoprazole IV and Carafate b.i.d. Syncopal episode, likely secondary to volume depletion Orthostatic vital pending EKG WNL Echocardiogram Continue telemetry History of seasonal allergy History of asthma-controlled Home medication loratadine 10 mg daily Albuterol scheduled nebulized treatments Clear liquid diet, advanced as tolerated Plan discussed with patient, mother at bedside in which all questions have been answered Goals of care discussed for more than 20 minutes, full code status Case discussed with Dr. Johnson Plan discussed with: Patient, Other (Mother) My Orders My Orders Orders - ELVIA OSCAR RESIDENT Procedure Category Date Status Time Mesalamine Rectal PHA 02/03/25 In Process ([place] Rectal) 22:00 Methylprednisolone PHA 02/03/25 In Process Sod Succ (Solu Medrol 22:00 * Gi Dvh Taker Away CONS 02/03/25 Transmitted 12:20 Metronidazole PHA 02/03/25 In Process 500mg/100ml (Flagyl 22:00 Clear Liq Diet DIET 02/03/25 Transmitted Dinner Ova & Parasite Exam TEN 02/03/25 Uncollected 15:05 Folic Acid Tablet PHA 02/03/25 In Process 22:00 Sulfasalazine PHA 02/03/25 In Process (Azulfidine) 22:00 Date of Service: Feb 03, 2025 Billing Provider: ELICEO HARMON MD Common Visit Codes: [id number] INP/OBS CARE(HIGH) ELVIA OSCAR RESIDENT Feb 03, 2025 18:57 ELICEO HARMON MD Feb 13, 2025 09:27
[2025-02-03] MEDS ORDERED: methylPREDNISolone SOD SUCC 40 MG/ML VL IV ONE (20:00)
--- NOTE | 2025-02-03 20:30 | ECG ---
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 Electronically Signed On 02-08-2025 20:16:23 PDT by Arvind May Please click the below link to view image of tracing.
--- NOTE | 2025-02-03 21:07 | DVHSR ---
APPROVED REPORT EXAM: Two-dimensional and M-mode echocardiogram with Doppler and color Doppler. Blood Pressure: 118/70 mmHg INDICATION Syncope RISK FACTORS Height: 70, Weight: 206 DIMENSIONS LVDd5.1 (3.8-5.7cm)LA (2D)3.5 (1.9-4.0cm)Aortic Root3.5 (2.0-3.7cm) LVDs3.4 (2.5-4.0cm)LA (MM) (1.9-4.0cm)Aortic Cusp Exc2.0 (1.5-2.0cm) EF (%) 61.0 (55-70%)Rt. Atrium4.6 (1.9-4.0cm)Asc. Aorta cm IVSd0.9 (0.7-1.1cm)RV (D) (1.8-2.4cm) PWd1.0 (0.7-1.1cm) Mitral Valve MitralMitral Stenosis E wave0.85m/sMV Mean GR.mmHg A wave0.67m/sMV Peak GR.mmHg E/A ratio1.32D MVAcm2 DECEL [id number] 1/2 Timems Aortic Valve Aortic ValveAortic Stenosis V11.06m/Patrice Mean GR.5mmHg V21.69m/Patrice Peak GR.11mmHg LVOT Diameter2.3 (1.8-2.4cm)Doppler AVA2.60cm2 Pulmonic Valve V21.07m/s Tricuspid Valve TR Velocity2.05m/s [id number] Conclusion LV EF IS 65% NORMAL VALVES NORMAL RV FUNCTION NO EFFUSION
[2025-02-03] MEDS: sulfaSALAzine 500 MG TAB PO SCH (21:57)
[2025-02-03] MEDS: metroNIDAZOLE 500MG/100ML 100 ML IV SCH (21:57)
[2025-02-03] MEDS: methylPREDNISolone SOD SUCC 40 MG/ML VL IV SCH (21:58)
[2025-02-03] MEDS: SUCRALFATE 1 GM/10 ML ORAL SUSP PO SCH (21:58)
[2025-02-03] MEDS: FOLIC ACID 1 MG TAB PO SCH (21:58)
[2025-02-03] MEDS: MESALAMINE 4 GM/60 ML RC PR SCH (21:59)
[2025-02-04] VITALS (14 sets, daily range): BP systolic 115–130; BP diastolic 47–72; PULSE 67–101; RESP 14–18; TEMP 97.9–98.7; O2SAT 93–99
[2025-02-04 06:00] LABS: Chloride 105 mmol/L (98-107); Potassium 4.3 mmol/L (3.5-5.1); Sodium 138 mmol/L (136-145)
[2025-02-04 06:01] LABS: Anion Gap 9 (5-15); Carbon Dioxide 24 mmol/L (20-31)
[2025-02-04 06:04] LABS: Calcium 10.5 mg/dL (8.7-10.4)
[2025-02-04 06:06] LABS: BUN/Creatinine Ratio 15.1 (10.0-20.0); Blood Urea Nitrogen 14 mg/dL (9-23); Glucose 109 mg/dL (74-106)
--- NOTE | 2025-02-04 15:52 | DVHPNRES ---
Progress Note Date Seen: Feb 04, 2025 Resident Creating Document: KAL VÁSQUEZ RESIDENT Medical Necessity Reason Pt with a Central, PICC or Fol: No Subjective Review of Systems Patient seen and examined at the bedside. GI consulted. Started sulfasalazine b.i.d. abdomen soft and hyperactive. Objective vital signs Vital Sign Date Time Temp Pulse Resp B/P (MAP) Pulse Ox O2 Delivery O2 Flow Rate FiO2 02/04/25 12:50 98.2 68 16 115/64 (81) 97 98.2 02/04/25 11:38 Room Air 0.0 02/04/25 11:38 21 Total Intake and Output 02/03/25 02/03/25 02/04/25 15:00 23:00 07:00 Intake Total 480 ml 380 ml 350 ml Balance 480 ml 380 ml 350 ml medications Current Medications Medications Dose Ordered Sig/Jad Route Start Time Stop Time Status Last Admin Dose Admin Sodium Chloride 1,000 ml @ 60 mls/hr [id number] IV 02/02/25 20:45 02/04/25 01:30 60 MLS/HR Acetaminophen/ Hydrocodone Bitart 1 tab Q4HP PRN PO 02/02/25 20:45 02/04/25 01:34 1 TAB Ondansetron HCl 4 mg Q4HP PRN IV 02/02/25 20:45 Acetaminophen 650 mg Q6HP PRN PO 02/02/25 20:45 02/03/25 22:09 650 MG Nitroglycerin 0.4 mg Q5MINP PRN SL 02/02/25 20:45 Morphine Sulfate 2 mg Q30M PRN IV 02/02/25 20:45 Albuterol 2.5 mg Q6HWA NEB 02/03/25 12:00 02/04/25 11:38 2.5 MG Loratadine 10 mg DAILY PO 02/03/25 10:00 02/04/25 09:27 10 MG Pantoprazole Sodium 40 mg DAILY IV 02/03/25 10:00 02/04/25 09:24 40 MG Sucralfate 1 gm BID@0600,2200 PO 02/03/25 22:00 02/04/25 06:15 1 GM Dicyclomine HCl 10 mg BID PO 02/03/25 10:00 02/04/25 09:27 10 MG Mesalamine 1 gm HS MA 02/03/25 22:00 Methylprednisolone Sodium Succinate 20 mg BID IV 02/03/25 22:00 02/04/25 09:25 20 MG Metronidazole 100 ml @ 100 mls/hr Q8HR IV 02/03/25 22:00 02/04/25 13:12 100 MLS/HR Folic Acid 1 mg BID PO 02/03/25 22:00 02/04/25 09:27 1 MG Sulfasalazine 500 mg BID PO 02/03/25 22:00 02/04/25 09:36 500 MG Examination General: Well-built, afebrile, palor, mucosae are moist Cardiovascular: Regular S1 and S2. No murmurs, gallops or rubs. No JVD elevation. No pedal edema Respiratory: Normal B/L air entry on room air. Clear lung sounds on auscultation Abdomen: Soft, diffuse tenderness nondistended, normoactive bowel sounds, no rebound tenderness, no organomegaly, no masses Genitourinary: Deferred MSK/skin: Mobilizes 4 limbs. Skin is dry and warm Neurological: No motor, no sensitive deficits, normal speech. Pupils are isocoric and reactive. Psych/Mental Status: A/Ox3. laboratory and microbiology Laboratory Tests 02/04/25 05:09 02/03/25 04:24 Test 02/04/25 05:09 Range/Units Serum Glucose 109 H 74-106 mg/dL Microbiology Date/Time Source Procedure Growth Status 02/04/25 15:32 Stool Received Problem List/Assessment/Plan Problem List/Assessment/Plan Bloody diarrhea secondary to possible Acute ulcerative colitis flare-up Acute gastroenteritis, likely infectious etiology ? Celiac disease ? Inflammatory arthritis without deformity History of IBS diagnosed 2019 [place] Rule out C diff GI consultation-started sulfasalazine 500 mg b.i.d. along with folic acid 1 mg p.o. b.i.d. Pending stool ova and parasite, pending C diff studies, pending stool culture IV metronidazole IV Solu-Medrol 20 mg b.i.d. 1 g mesalamine per rectal HS daily Iron panel unremarkable Liver ultrasound shows hepatic steatosis CT abdomen shows Subcentimeter right lower quadrant lymph nodes similar to prior. ESR , CRP WNL Pantoprazole IV and Carafate b.i.d. Syncopal episode, likely secondary to volume depletion Orthostatic vital pending EKG WNL Echocardiogram Continue telemetry History of seasonal allergy History of asthma-controlled Home medication loratadine 10 mg daily Albuterol scheduled nebulized treatments NPO except ice chips Goals of care discussed for 21 minutes, full code Case discussed with Dr. Garcia Plan discussed with: Patient Date of Service: Feb 04, 2025 Billing Provider: AVIS GARCIA MD Common Visit Codes: [id number] INP/OBS CARE(HIGH) KAL VÁSQUEZ RESIDENT Feb 04, 2025 15:52 AVIS GARCIA MD Feb 04, 2025 22:12
--- NOTE | 2025-02-04 16:30 | DVHPN2 ---
Progress Note - Dictate Date Seen: Feb 04, 2025 Has the PT tested + for MRSA If YES, has PT been informed?: No Medical Necessity Reason Pt with a Central, PICC or Fol: No Subjective Patient is feeling much better with decreased diarrhea no bleeding Mild abdominal pain Tolerating soft diet On Azulfidine and folic acid vital signs Vital Sign Date Time Temp Pulse Resp B/P (MAP) Pulse Ox O2 Delivery O2 Flow Rate FiO2 02/04/25 12:50 98.2 68 16 115/64 (81) 97 98.2 02/04/25 11:38 Room Air 0.0 02/04/25 11:38 21 Total Intake and Output 02/03/25 02/03/25 02/04/25 15:00 23:00 07:00 Intake Total 480 ml 380 ml 350 ml Balance 480 ml 380 ml 350 ml medications Current Medications Medications Dose Ordered Sig/Jad Route Start Time Stop Time Status Last Admin Dose Admin Sodium Chloride 1,000 ml @ 60 mls/hr [id number] IV 02/02/25 20:45 02/04/25 01:30 60 MLS/HR Acetaminophen/ Hydrocodone Bitart 1 tab Q4HP PRN PO 02/02/25 20:45 02/04/25 01:34 1 TAB Ondansetron HCl 4 mg Q4HP PRN IV 02/02/25 20:45 Acetaminophen 650 mg Q6HP PRN PO 02/02/25 20:45 02/03/25 22:09 650 MG Nitroglycerin 0.4 mg Q5MINP PRN SL 02/02/25 20:45 Morphine Sulfate 2 mg Q30M PRN IV 02/02/25 20:45 Albuterol 2.5 mg Q6HWA NEB 02/03/25 12:00 02/04/25 11:38 2.5 MG Loratadine 10 mg DAILY PO 02/03/25 10:00 02/04/25 09:27 10 MG Pantoprazole Sodium 40 mg DAILY IV 02/03/25 10:00 02/04/25 09:24 40 MG Sucralfate 1 gm BID@0600,2200 PO 02/03/25 22:00 02/04/25 06:15 1 GM Dicyclomine HCl 10 mg BID PO 02/03/25 10:00 02/04/25 09:27 10 MG Mesalamine 1 gm HS MD 02/03/25 22:00 Methylprednisolone Sodium Succinate 20 mg BID IV 02/03/25 22:00 02/04/25 09:25 20 MG Metronidazole 100 ml @ 100 mls/hr Q8HR IV 02/03/25 22:00 02/04/25 13:12 100 MLS/HR Folic Acid 1 mg BID PO 02/03/25 22:00 02/04/25 09:27 1 MG Sulfasalazine 500 mg BID PO 02/03/25 22:00 02/04/25 09:36 500 MG objective Abdomen is soft nontender no masses bowel sounds normal laboratory and microbiology Laboratory Tests 02/04/25 05:09 02/03/25 04:24 Test 02/04/25 05:09 Range/Units Serum Glucose 109 H 74-106 mg/dL Assessment/Plan Patient is feeling much better diarrhea has decreased no bleeding no nausea vomiting tolerating diet okay We will recommend to continue with Azulfidine and folic acid if symptoms persist or recur may have to consider other line of treatment Thank you Dr. Mojica Plan discussed with: Patient JANICE MOJICA MD Feb 04, 2025 16:30
[2025-02-04] MEDS ORDERED: MESALAMINE 4 GM/60 ML RC PR SCH (22:00)
[2025-02-05] VITALS (9 sets, daily range): BP systolic 103–131; BP diastolic 54–98; PULSE 57–95; RESP 16–18; TEMP 97.8–99.2; O2SAT 95–98
[2025-02-05 06:06] LABS: Alanine Aminotransferase 16 U/L (7-40); Albumin 4.8 g/dL (3.2-4.8); Alkaline Phosphatase 74 U/L (46-116); Anion Gap 9 (5-15); BUN/Creatinine Ratio 18.9 (10.0-20.0); Blood Urea Nitrogen 20 mg/dL (9-23); Calcium 9.8 mg/dL (8.7-10.4); Carbon Dioxide 27 mmol/L (20-31); Chloride 105 mmol/L (98-107); Potassium 4.3 mmol/L (3.5-5.1); Sodium 141 mmol/L (136-145); Total Protein 7.7 g/dL (5.7-8.2)
[2025-02-05 06:07] LABS: Bilirubin, Total 0.5 mg/dL (0.2-1.0)
[2025-02-05 06:10] LABS: Basophils # (auto) 0 10 ^3/uL (0-0.2); Eosinophils # (auto) 0 10 ^3/uL (0-0.8); Hematocrit 46.2 % (41.0-53.0); Hemoglobin 15.9 g/dL (13.5-17.5); Lymphocytes # (auto) 0.9 10 ^3/uL (0.4-5.4); Lymphocytes % (auto) 8.6 % (10.0-50.0); Mean Corpuscular Hemoglobin 31.1 pg (28.0-32.0); Mean Corpuscular Hgb Conc. 34.5 g/dL (32.0-36.0); Mean Corpuscular Volume 90.4 fL (80.0-100.0); Monocytes # (auto) 0.6 10 ^3/uL (0-1.3); Monocytes % (auto) 5.8 % (0.0-12.0); Neutrophils # (auto) 9.1 10 ^3/uL (1.6-8.6); Neutrophils % (auto) 85.6 % (37.0-80.0); Platelet Count (auto) 257 10^3/uL (140-450); Red Blood Cells 5.11 10^6/uL (4.5-5.90); Red Cell Distribution Width 13.8 % (11.8-14.3); White Blood Cell 10.6 10^3/uL (4.4-10.8)
[2025-02-05 06:27] LABS: Aspartate Aminotransferase < 8 U/L (13-40); Glucose 125 mg/dL (74-106)
[2025-02-05] MEDS: ONDANSETRON HCL 4 MG/2 ML VIAL IV ONE (12:11)
[2025-02-05] MEDS: HYDROmorphone HCL 2 MG/ML VL/or syr IV ONE (12:12)
[2025-02-05] MEDS: ERGOCALCIFEROL 50,000 UNIT(1.25MG) CAP PO SCH (12:15)
[2025-02-05] MEDS: IOHEXOL 300 MG/ML 100ML BOTTLE IJ ONE (12:32)
--- NOTE | 2025-02-05 13:47 | DVH ---
CLINICAL INFORMATION: 19 years old, Male; severe intractable abd pain, ulcerative colitis flare. TECHNIQUE: Axial CT images of the abdomen and pelvis were obtained prior to and after the uneventful administration of 100 mL Omnipaque 300 IV contrast. Coronal and sagittal reformatted images were obt ained, reviewed, and stored. All CT scans at this medical facility are performed using dose modulatio n techniques as appropriate to a performed exam including the following: Automated exposure control w as utilized; adjustment of the MA and/or KV according to patient size; and use of iterative reconstru ction technique. CTDIvol = 14.18 mGy DLP = 1569.48 mGy-cm COMPARISON: CT CT AB PEL WITH IV CON ONLY on DOS: 11/15/24 FINDINGS: Lung bases: Lung bases are clear. Liver: Unremarkable. No abnormal density or focal lesion. Biliary: No calcified gallstones or biliary ductal dilatation. Spleen: Unremarkable. Pancreas: Unremarkable. No inflammatory changes, ductal dilatation, or mass identified. Adrenal glands: Unremarkable. No mass. Kidneys: No hydronephrosis or mass. No renal or ureteral calculi. Aorta/Vascular: No aneurysm or significant calcification. Retroperitoneum: No mass or lymphadenopathy. Bowel/mesentery: Mildly distended fluid-filled small bowel loops. No small bowel obstruction. Appendi x is visualized and measures up to in diameter, at the upper limits of normal. No periappendiceal str anding or free fluid visualized. Small subcentimeter mesenteric lymph nodes in the right lower quadra nt, similar to prior exams. Scattered colonic diverticula without adjacent inflammatory changes to mackay ggest diverticulitis. Pelvic organs: Grossly unremarkable. Bladder: Unremarkable. No mass. Abdominal wall: No mass or hernia. Bones: No acute fracture or focal intraosseous lesion. IMPRESSION: 1. Nonspecific nondilated fluid-filled small bowel loops. Findings may be seen with ileus or enteriti s in the appropriate clinical setting. No small bowel obstruction. 2. Appendix measures at the upper limits of normal in diameter, similar to prior CT exams. No periapp endiceal inflammatory changes are seen to suggest acute appendicitis, although correlation with clini caitie findings is needed. 3. Scattered colonic diverticula without adjacent inflammatory changes to suggest diverticulitis. 4. Additional findings as described above.
[2025-02-05] MEDS: ACETAMINOPHEN 325 MG TAB PO ONE (16:30)
--- NOTE | 2025-02-05 16:30 | DVHPNRES ---
Progress Note Date Seen: Feb 05, 2025 Resident Creating Document: ELVIA OSCAR RESIDENT Has the PT tested + for MRSA If YES, has PT been informed?: No Medical Necessity Reason Pt with a Central, PICC or Fol: No Subjective Review of Systems Mr. Fuentes, a 19-year-old male with a history of seasonal allergy, asthma and irritable bowel disease (IBD) diagnosed in 2018, newly diagnosed ulcerative colitis presented to the emergency department with acute abdominal pain, nausea, vomiting, and diarrhea that began earlier that day. He recently started treatment for ulcerative colitis prescribed by Dr. Avery on 01/19/25 and has been compliant with his medications but not able to tolerate oral mesalamine. On the day of presentation, he experienced a syncopal episode at home followed by two episodes of non-bloody, non-bilious vomiting and worsening abdominal pain, particularly in the right upper and lower quadrants, rated 6/10, that did not subside with tylenol. He denied other systemic symptoms such as fever, chills, or bloody stool. His labs and abdominal CT were unremarkable, and he was afebrile, stable, and eating healthy.He denies smoking, alcohol, or drug use and has no surgical history. A prior colonoscopy on 11/18/24 showed mild nonspecific colitis with negative biopsies for appendicitis but recently was. Previous hospitalization revealed exacerbation and was treated with IV fluids, hydromorphone, ondansetron, Rocephin, and Flagyl, resulting in significant symptom improvement. Patient follows with Dr. Avery as primary GI and PCP Dr. Hernandez with [facility]. PMH/PSH:seasonal allergy, asthma and irritable bowel disease (IBD) diagnosed in 2018, newly diagnosed ulcerative colitis 02/03 - Patient seen and examined at the bedside. GI consulted. Started sulfasalazine b.i.d.. 02/05 - patient seen and examined. Patient was doing fine in the a.m., reports severe pain around 11:00 a.m., abdomen soft and hyperactive. Repeat CT scan with IV contrast shows enteritis. One dose of 0.25 mg hydromorphone IV given. NPO except ice chips. Objective vital signs Vital Sign Date Time Temp Pulse Resp B/P (MAP) Pulse Ox O2 Delivery O2 Flow Rate FiO2 02/05/25 12:49 97.9 95 17 131/98 (109) 97 97.9 02/05/25 07:30 Room Air* 0 21 Total Intake and Output 02/04/25 02/04/25 02/05/25 15:00 23:00 07:00 Intake Total 290 ml 705 ml 2110 ml Output Total 1000 ml Balance 290 ml 705 ml 1110 ml medications Current Medications Medications Dose Ordered Sig/Jad Route Start Time Stop Time Status Last Admin Dose Admin Sodium Chloride 1,000 ml @ 60 mls/hr [id number] IV 02/02/25 20:45 02/04/25 23:36 60 MLS/HR Acetaminophen/ Hydrocodone Bitart 1 tab Q4HP PRN PO 02/02/25 20:45 02/05/25 09:12 1 TAB Ondansetron HCl 4 mg Q4HP PRN IV 02/02/25 20:45 Acetaminophen 650 mg Q6HP PRN PO 02/02/25 20:45 02/03/25 22:09 650 MG Nitroglycerin 0.4 mg Q5MINP PRN SL 02/02/25 20:45 Morphine Sulfate 2 mg Q30M PRN IV 02/02/25 20:45 Albuterol 2.5 mg Q6HWA NEB 02/03/25 12:00 02/05/25 06:35 2.5 MG Loratadine 10 mg DAILY PO 02/03/25 10:00 02/05/25 09:03 10 MG Pantoprazole Sodium 40 mg DAILY IV 02/03/25 10:00 02/05/25 08:59 40 MG Sucralfate 1 gm BID@0600,2200 PO 02/03/25 22:00 02/05/25 05:24 1 GM Dicyclomine HCl 10 mg BID PO 02/03/25 10:00 02/05/25 09:03 10 MG Mesalamine 1 gm HS [place] 02/03/25 22:00 Methylprednisolone Sodium Succinate 20 mg BID IV 02/03/25 22:00 02/05/25 09:00 20 MG Metronidazole 100 ml @ 100 mls/hr Q8HR IV 02/03/25 22:00 02/05/25 13:30 100 MLS/HR Folic Acid 1 mg BID PO 02/03/25 22:00 02/05/25 09:03 1 MG Sulfasalazine 500 mg BID PO 02/03/25 22:00 02/05/25 09:03 500 MG Ergocalciferol 50,000 unit Q7D PO 02/05/25 09:15 02/05/25 12:15 50,000 UNIT Diphenhydramine HCl 25 mg Q8HP PRN PO 02/05/25 20:00 Examination Patient lying in bed, in no acute distress General: Well-built, afebrile, palor, mucosae are moist Cardiovascular: Regular S1 and S2. No murmurs, gallops or rubs. No JVD elevation. No pedal edema Respiratory: Normal B/L air entry on room air. Clear lung sounds on auscultation Abdomen: Soft, diffuse tenderness nondistended, normoactive bowel sounds, no rebound tenderness, no organomegaly, no masses Genitourinary: Deferred MSK/skin: Mobilizes 4 limbs. Skin is dry and warm Neurological: No motor, no sensitive deficits, normal speech. Pupils are isocoric and reactive. Psych/Mental Status: A/Ox3 laboratory and microbiology Laboratory Tests 02/05/25 05:03 Test 02/05/25 05:03 Range/Units Serum Glucose 125 H 74-106 mg/dL Microbiology Date/Time Source Procedure Growth Status 02/04/25 15:32 Stool Stool Culture - Preliminary Resulted 02/04/25 15:32 Stool Shiga Toxin I & II - Final Resulted Labs and/or images reviewed: Labs reviewed by me, Image(s) reviewed by me Problem List/Assessment/Plan Problem List/Assessment/Plan Bloody diarrhea secondary to possible Acute ulcerative colitis flare-up Acute gastroenteritis, likely infectious etiology ? Celiac disease ? Inflammatory arthritis without deformity History of IBS diagnosed 2019 [place] Rule out C diff. Diverticulosis GI consultation-started sulfasalazine 500 mg b.i.d. along with folic acid 1 mg p.o. b.i.d. Repeat CT abdomen with IV contrast 02/05 shows nonspecific nondilated fluid-filled small bowel loops. May be seen with ileus or enteritis Pending stool ova and parasite, pending C diff studies, stool culture prelim negative, stool occult blood in stool WBC negative IV metronidazole IV Solu-Medrol 20 mg b.i.d. 1 g mesalamine per rectal HS daily Iron panel unremarkable Liver ultrasound shows hepatic steatosis CT abdomen shows Subcentimeter right lower quadrant lymph nodes similar to prior. ESR , CRP WNL Pantoprazole IV and Carafate b.i.d. Syncopal episode, likely secondary to volume depletion Orthostatic vital pending EKG WNL Echocardiogram shows LVEF 65%, normal valves, normal RV function Continue telemetry History of seasonal allergy History of asthma-controlled Home medication loratadine 10 mg daily Albuterol scheduled nebulized treatments NPO except ice chips and medications Plan discussed with patient, mother at bedside in details for more than 20 minutes in which all questions have been answered Goals of care discussed for more than 20 minutes, full code status Case discussed with Dr. Garcia Plan discussed with: Patient My Orders My Orders Orders - ELVIA OSCAR Procedure Category Date Status Time Ergocalciferol PHA 02/05/25 In Process (Vitamin D 50,000 09:15 * Dietary Consult CONS 02/05/25 Transmitted 09:59 Strict I & O DEBBIE 02/05/25 In Process 09:59 Ct Ab Pelvis W Wo CT 02/05/25 Resulted Con-Iv Only 11:57 Npo Except Ice Chips DEBBIE 02/05/25 In Process 15:45 Npo (Nothing By DIET 02/05/25 Transmitted Mouth) Diet Dinner Diphenhdramine PHA 02/05/25 In Process Capsule (Benadryl 20:00 Dietary Evaluation Review Recommendations by RD: Decrease Calorie Intake Comments: 1) Encourage optimal PO intake 2) Advance to low-fiber gluten-free diet when medically feasible, pending COUNTERPERSON approval 3) Refer to outpatient RD for weight management 4) Follow-up with gastroenterology 5) Continue to monitor I&O, labs, and skin integrity Expected Outcomes/Goals: 1) appetite and labs to improve 2) diet to advance 3) f/u in 3-5 days Date of Service: Feb 05, 2025 Billing Provider: AVIS GARCIA MD Common Visit Codes: [id number] INP/OBS CARE(MOD) ELVIA OSCAR Feb 05, 2025 16:30 AVIS GARCIA MD Feb 06, 2025 01:50
[2025-02-05] MEDS: diphenhdrAMINE HCL 50 MG/1 ML VL IV ONE (16:33)
--- NOTE | 2025-02-05 18:50 | DVHPN2 ---
Progress Note - Dictate Date Seen: Feb 05, 2025 Has the PT tested + for MRSA If YES, has PT been informed?: No Medical Necessity Reason Pt with a Central, PICC or Fol: No Subjective Patient had sudden severe abdominal pain in the right flank and right upper quadrant and lumbar number area and right lower radiating to the back Nausea no vomiting no bleeding Some diarrhea but no blood no urinary symptoms like a kidney stone Physical examination unremarkable mild nonspecific tenderness in the right lower quadrant and right flank Bowel sounds + Urine analysis in the past was unremarkable vital signs Vital Sign Date Time Temp Pulse Resp B/P (MAP) Pulse Ox O2 Delivery O2 Flow Rate FiO2 02/05/25 16:50 99.2 64 16 113/60 (77) 96 99.2 02/05/25 07:30 Room Air* 0 21 Total Intake and Output 02/04/25 02/04/25 02/05/25 15:00 23:00 07:00 Intake Total 290 ml 705 ml 2110 ml Output Total 1000 ml Balance 290 ml 705 ml 1110 ml medications Current Medications Medications Dose Ordered Sig/Jad Route Start Time Stop Time Status Last Admin Dose Admin Sodium Chloride 1,000 ml @ 60 mls/hr [id number] IV 02/02/25 20:45 02/05/25 17:56 60 MLS/HR Acetaminophen/ Hydrocodone Bitart 1 tab Q4HP PRN PO 02/02/25 20:45 02/05/25 09:12 1 TAB Ondansetron HCl 4 mg Q4HP PRN IV 02/02/25 20:45 Acetaminophen 650 mg Q6HP PRN PO 02/02/25 20:45 02/05/25 16:33 650 MG Nitroglycerin 0.4 mg Q5MINP PRN SL 02/02/25 20:45 Albuterol 2.5 mg Q6HWA NEB 02/03/25 12:00 02/05/25 06:35 2.5 MG Loratadine 10 mg DAILY PO 02/03/25 10:00 Hold 02/05/25 09:03 10 MG Pantoprazole Sodium 40 mg DAILY IV 02/03/25 10:00 02/05/25 08:59 40 MG Sucralfate 1 gm BID@0600,2200 PO 02/03/25 22:00 02/05/25 05:24 1 GM Dicyclomine HCl 10 mg BID PO 02/03/25 10:00 02/05/25 09:03 10 MG Mesalamine 1 gm HS DE 02/03/25 22:00 Methylprednisolone Sodium Succinate 20 mg BID IV 02/03/25 22:00 02/05/25 09:00 20 MG Metronidazole 100 ml @ 100 mls/hr Q8HR IV 02/03/25 22:00 02/05/25 13:30 100 MLS/HR Folic Acid 1 mg BID PO 02/03/25 22:00 02/05/25 09:03 1 MG Sulfasalazine 500 mg BID PO 02/03/25 22:00 02/05/25 09:03 500 MG Ergocalciferol 50,000 unit Q7D PO 02/05/25 09:15 02/05/25 12:15 50,000 UNIT Diphenhydramine HCl 25 mg Q8HP PRN PO 02/05/25 20:00 objective Abdomen is soft mild nonspecific tenderness in the right lower quadrant and lumbar area no masses bowel sounds normal Etiology of the abdominal pain unclear Possibility of kidney stones or UTI can not be excluded Also possibility of gallstones can not be also excluded A CT scan has been repeated which was unremarkable with contrast If symptoms persist ultrasound of the gallbladder and kidneys Liver panel and lipase repeat UA and urine culture and further workup as necessary Thank you Dr. Mojica laboratory and microbiology Laboratory Tests 02/05/25 05:03 Test 02/05/25 05:03 Range/Units Serum Glucose 125 H 74-106 mg/dL Assessment/Plan Patient is feeling much better diarrhea has decreased no bleeding no nausea vomiting tolerating diet okay We will recommend to continue with Azulfidine and folic acid if symptoms persist or recur may have to consider other line of treatment Thank you Dr. Mojica Dietary Evaluation Review Recommendations by RD: Decrease Calorie Intake Comments: 1) Encourage optimal PO intake 2) Advance to low-fiber gluten-free diet when medically feasible, pending PUBLIC HEALTH SERVICE OFFICER approval 3) Refer to outpatient RD for weight management 4) Follow-up with gastroenterology 5) Continue to monitor I&O, labs, and skin integrity Expected Outcomes/Goals: 1) appetite and labs to improve 2) diet to advance 3) f/u in 3-5 days Plan discussed with: Patient JANICE MOJICA MD Feb 05, 2025 18:50
[2025-02-05 20:23] LABS: Urine Bacteria None Seen /hpf (None Seen)
[2025-02-05 20:34] LABS: Urine Blood Negative /uL (Negative); Urine Clarity Clear (Clear); Urine Color Yellow (Yellow); Urine Protein, UAD Negative (Negative); Urine Squamous Epithelial Cell FEW /hpf (<5); Urine Urobilinogen Normal (Negative); Urine WBC 1 /HPF (0-3)
[2025-02-05 20:42] LABS: Urine Specific Gravity 1.048 (1.001-1.035)
[2025-02-05 23:33] LABS: COVID19 ANTIGEN SOFIA FIA NEGATIVE (NEGATIVE); Rapid Influenza A Negative (Negative); Rapid Influenza B Negative (Negative)
[2025-02-06] VITALS (14 sets, daily range): BP systolic 106–124; BP diastolic 53–74; PULSE 50–111; RESP 14–18; TEMP 97.7–98.3; O2SAT 95–100
[2025-02-06 05:45] LABS: Basophils # (auto) 0 10 ^3/uL (0-0.2); Basophils % (auto) 0.1 % (0.0-2.0); Eosinophils # (auto) 0 10 ^3/uL (0-0.8); Eosinophils % (auto) 0.1 % (0.0-7.0); Hematocrit 46.6 % (41.0-53.0); Lymphocytes # (auto) 1.2 10 ^3/uL (0.4-5.4); Lymphocytes % (auto) 13.3 % (10.0-50.0); Mean Corpuscular Hemoglobin 31.3 pg (28.0-32.0); Mean Corpuscular Hgb Conc. 34.3 g/dL (32.0-36.0); Mean Corpuscular Volume 91.1 fL (80.0-100.0); Monocytes # (auto) 0.7 10 ^3/uL (0-1.3); Monocytes % (auto) 7.4 % (0.0-12.0); Neutrophils # (auto) 7.4 10 ^3/uL (1.6-8.6); Neutrophils % (auto) 79.1 % (37.0-80.0); Platelet Count (auto) 245 10^3/uL (140-450); Red Blood Cells 5.12 10^6/uL (4.5-5.90); Red Cell Distribution Width 13.8 % (11.8-14.3); White Blood Cell 9.3 10^3/uL (4.4-10.8)
[2025-02-06 05:56] LABS: Anion Gap 10 (5-15); Calcium 10.3 mg/dL (8.7-10.4); Carbon Dioxide 25 mmol/L (20-31); Potassium 4.4 mmol/L (3.5-5.1); Sodium 142 mmol/L (136-145)
[2025-02-06 06:02] LABS: BUN/Creatinine Ratio 15.5 (10.0-20.0); Blood Urea Nitrogen 16 mg/dL (9-23); Chloride 107 mmol/L (98-107); Glucose 105 mg/dL (74-106)
[2025-02-06 06:03] LABS: CRP High Sensitivity 0.05 mg/dL (<1.0)
[2025-02-06] MEDS: diphenhdrAMINE HCL 25 MG CAP PO PRN (09:08)
--- NOTE | 2025-02-06 09:33 | ECG ---
[facility] Test Date: 2025-02-03 Test Time: 20:27:59 Pat Name: FRANKY ORTIZLAND Department: Room: 0294 Gender: M [employer] Jailer: JACQUES : 2005 Requested By: ELVIA OSCAR Order Number: [id number] Reading MD: Arvind May Measurements Intervals [place] Rate: 106 P: 114 ME: 178 QRS: 66 QRSD: 104 T: 17 QT: 364 QTc: 484 Interpretive Statements Sinus tachycardia Paired ventricular premature complexes ST elev, probable normal early repol pattern Electronically Signed On 02-08-2025 20:14:44 PDT by Arvind May Please click the below link to view image of tracing.
[2025-02-06] MEDS: FLORASTOR (S. BOULARDII) 250 MG CAP PO SCH (12:17)
--- NOTE | 2025-02-06 12:40 | ECG ---
[facility] Test Date: 2025-02-05 Test Time: 17:19:05 Pat Name: FRANKY ORTIZLAND Department: Room: 0294 Gender: M [employer]pper: AV : 2005 Requested By: CHIQUITA COOPER Order Number: [id number] Reading MD: Arvind May Measurements Intervals [place] Rate: 62 P: 6 DE: 145 QRS: -3 QRSD: 101 T: 17 QT: 398 QTc: 405 Interpretive Statements Sinus rhythm Electronically Signed On 02-08-2025 20:19:12 PDT by Arvind May Please click the below link to view image of tracing.
--- NOTE | 2025-02-06 18:07 | DVHPNRES ---
Progress Note Date Seen: Feb 06, 2025 Resident Creating Document: ELVIA OSCAR RESIDENT Has the PT tested + for MRSA If YES, has PT been informed?: No Medical Necessity Reason Pt with a Central, PICC or Fol: No Subjective Review of Systems Mr. Fuentes, a 19-year-old male with a history of seasonal allergy, asthma and irritable bowel disease (IBD) diagnosed in 2018, newly diagnosed ulcerative colitis presented to the emergency department with acute abdominal pain, nausea, vomiting, and diarrhea that began earlier that day. He recently started treatment for ulcerative colitis prescribed by Dr. Avery on 01/19/25 and has been compliant with his medications but not able to tolerate oral mesalamine. On the day of presentation, he experienced a syncopal episode at home followed by two episodes of non-bloody, non-bilious vomiting and worsening abdominal pain, particularly in the right upper and lower quadrants, rated 6/10, that did not subside with tylenol. He denied other systemic symptoms such as fever, chills, or bloody stool. His labs and abdominal CT were unremarkable, and he was afebrile, stable, and eating healthy.He denies smoking, alcohol, or drug use and has no surgical history. A prior colonoscopy on 11/18/24 showed mild nonspecific colitis with negative biopsies for appendicitis but recently was. Previous hospitalization revealed exacerbation and was treated with IV fluids, hydromorphone, ondansetron, Rocephin, and Flagyl, resulting in significant symptom improvement. Patient follows with Dr. Avery as primary GI and PCP Dr. Hernandez with [facility]. PMH/PSH:seasonal allergy, asthma and irritable bowel disease (IBD) diagnosed in 2018, newly diagnosed ulcerative colitis 02/03 - Patient seen and examined at the bedside. GI consulted. Started sulfasalazine b.i.d.. 02/05 - patient seen and examined. Patient was doing fine in the a.m., reports severe pain around 11:00 a.m., abdomen soft and hyperactive. Repeat CT scan with IV contrast shows enteritis. One dose of 0.25 mg hydromorphone IV given. NPO except ice chips. 02/06-patient seen and examined. Labs unremarkable. Patient refused IV Solu- Medrol, explained the importance of IV steroids in treatment of UC flare-up. GI recommended Lomotil and cholestyramine b.i.d.. Objective vital signs Vital Sign Date Time Temp Pulse Resp B/P (MAP) Pulse Ox O2 Delivery O2 Flow Rate FiO2 02/06/25 17:00 97.7 55 16 111/61 (78) 96 97.7 02/06/25 11:30 Room Air 02/06/25 11:30 0 21 Total Intake and Output 02/05/25 02/05/25 02/06/25 15:00 23:00 07:00 Intake Total 760 ml 200 ml Balance 760 ml 200 ml medications Current Medications Medications Dose Ordered Sig/Jad Route Start Time Stop Time Status Last Admin Dose Admin Sodium Chloride 1,000 ml @ 60 mls/hr [id number] IV 02/02/25 20:45 02/05/25 20:13 60 MLS/HR Acetaminophen/ Hydrocodone Bitart 1 tab Q4HP PRN PO 02/02/25 20:45 02/05/25 09:12 1 TAB Ondansetron HCl 4 mg Q4HP PRN IV 02/02/25 20:45 Acetaminophen 650 mg Q6HP PRN PO 02/02/25 20:45 02/06/25 09:08 650 MG Nitroglycerin 0.4 mg Q5MINP PRN SL 02/02/25 20:45 Albuterol 2.5 mg Q6HWA NEB 02/03/25 12:00 02/06/25 11:30 2.5 MG Loratadine 10 mg DAILY PO 02/03/25 10:00 Hold 02/05/25 09:03 10 MG Pantoprazole Sodium 40 mg DAILY IV 02/03/25 10:00 02/06/25 09:08 40 MG Sucralfate 1 gm BID@0600,2200 PO 02/03/25 22:00 02/06/25 05:30 1 GM Dicyclomine HCl 10 mg BID PO 02/03/25 10:00 02/06/25 09:08 10 MG Mesalamine 1 gm HS ID 02/03/25 22:00 Methylprednisolone Sodium Succinate 20 mg BID IV 02/03/25 22:00 02/05/25 22:17 20 MG Metronidazole 100 ml @ 100 mls/hr Q8HR IV 02/03/25 22:00 02/06/25 12:41 100 MLS/HR Folic Acid 1 mg BID PO 02/03/25 22:00 02/06/25 09:08 1 MG Sulfasalazine 500 mg BID PO 02/03/25 22:00 02/06/25 09:08 500 MG Ergocalciferol 50,000 unit Q7D PO 02/05/25 09:15 02/06/25 09:08 50,000 UNIT Diphenhydramine HCl 25 mg Q8HP PRN PO 02/05/25 20:00 02/06/25 09:08 25 MG Saccharomyces Boulardii 250 mg DAILY PO 02/06/25 10:00 02/06/25 12:17 250 MG Examination Patient lying in bed, in no acute distress General: Well-built, afebrile, palor, mucosae are moist Cardiovascular: Regular S1 and S2. No murmurs, gallops or rubs. No JVD elevation. No pedal edema Respiratory: Normal B/L air entry on room air. Clear lung sounds on auscultation Abdomen: Soft, diffuse tenderness nondistended, normoactive bowel sounds, no rebound tenderness, no organomegaly, no masses Genitourinary: Deferred MSK/skin: Mobilizes 4 limbs. Skin is dry and warm Neurological: No motor, no sensitive deficits laboratory and microbiology Laboratory Tests 02/06/25 05:16 Test 02/06/25 05:16 Range/Units Serum Glucose 105 74-106 mg/dL Microbiology Date/Time Source Procedure Growth Status 02/05/25 17:12 Blood Blood Culture - Preliminary NO GROWTH AFTER 24 HOURS OF INCUBATION. Resulted 02/04/25 15:32 Stool Stool Culture - Preliminary Resulted 02/04/25 15:32 Stool Shiga Toxin I & II - Final Resulted Labs and/or images reviewed: Labs reviewed by me, Image(s) reviewed by me Problem List/Assessment/Plan Problem List/Assessment/Plan Bloody diarrhea secondary to possible Acute ulcerative colitis flare-up Acute gastroenteritis, likely infectious etiology ? Celiac disease ? 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 along with folic acid 1 mg p.o. b.i.d. Repeat CT abdomen with IV contrast 02/05 shows nonspecific nondilated fluid-filled small bowel loops. May be seen with ileus or enteritis Stool culture prelim negative, stool occult blood in stool WBC negative IV metronidazole IV Solu-Medrol 20 mg b.i.d. 1 g mesalamine per rectal HS daily Iron panel unremarkable Liver ultrasound shows hepatic steatosis CT abdomen shows Subcentimeter right lower quadrant lymph nodes similar to prior. ESR , CRP WNL Pantoprazole IV and Carafate b.i.d. Blood culture 02/05 negative preliminary Started cholestyramine b.i.d. and Lomotil b.i.d.. Syncopal episode, likely secondary to volume depletion Orthostatic vital pending EKG WNL Echocardiogram shows LVEF 65%, normal valves, normal RV function Continue telemetry History of seasonal allergy History of asthma-controlled Home medication loratadine 10 mg daily Albuterol scheduled nebulized treatments Started clear liquid diet Plan discussed with patient, mother at bedside in details for more than 20 minutes in which all questions have been answered Goals of care discussed for more than 20 minutes, full code status Case discussed with Dr. Drummond Plan discussed with: Patient My Orders My Orders Orders - ELVIA OSCAR Procedure Category Date Status Time [place] (SJacques CHINO 02/06/25 In Process Serena) ([place]) 10:00 Dietary Evaluation Review Recommendations by RD: Decrease Calorie Intake Comments: 1) Encourage optimal PO intake 2) Advance to low-fiber gluten-free diet when medically feasible, pending CONTINUING EDUCATION DIRECTOR approval 3) Refer to outpatient RD for weight management 4) Follow-up with gastroenterology 5) Continue to monitor I&O, labs, and skin integrity Expected Outcomes/Goals: 1) appetite and labs to improve 2) diet to advance 3) f/u in 3-5 days Date of Service: Feb 06, 2025 Billing Provider: MONICA DRUMMOND MD Common Visit Codes: [id number] INP/OBS CARE(HIGH) ELVIA OSCAR Feb 06, 2025 18:07 MONICA DRUMMOND MD Feb 06, 2025 22:56
[2025-02-06] MEDS: DIPHENOXYLATE W/ATROPINE 2.5 MG TAB PO SCH (18:18)
[2025-02-06] MEDS: CHOLESTYRAMINE 4 GM POWDER PO SCH (23:16)
[2025-02-07] VITALS (14 sets, daily range): BP systolic 110–137; BP diastolic 48–81; PULSE 61–109; RESP 14–20; TEMP 97.6–98.6; O2SAT 94–100
[2025-02-07 07:30] LABS: Chloride 104 mmol/L (98-107); Potassium 4.3 mmol/L (3.5-5.1); Sodium 142 mmol/L (136-145)
[2025-02-07 07:31] LABS: Anion Gap 12 (5-15); Carbon Dioxide 26 mmol/L (20-31)
[2025-02-07 07:35] LABS: Calcium 10.5 mg/dL (8.7-10.4)
[2025-02-07 07:36] LABS: BUN/Creatinine Ratio 10.8 (10.0-20.0); Blood Urea Nitrogen 11 mg/dL (9-23); Glucose 105 mg/dL (74-106)
--- NOTE | 2025-02-07 17:16 | DVHPNRES ---
Progress Note Date Seen: Feb 07, 2025 Resident Creating Document: ELVIA OSCAR RESIDENT Has the PT tested + for MRSA If YES, has PT been informed?: No Medical Necessity Reason Pt with a Central, PICC or Fol: No Subjective Review of Systems Mr. Fuentes, a 19-year-old male with a history of seasonal allergy, asthma and irritable bowel disease (IBD) diagnosed in 2018, newly diagnosed ulcerative colitis presented to the emergency department with acute abdominal pain, nausea, vomiting, and diarrhea that began earlier that day. He recently started treatment for ulcerative colitis prescribed by Dr. Avery on 01/19/25 and has been compliant with his medications but not able to tolerate oral mesalamine. On the day of presentation, he experienced a syncopal episode at home followed by two episodes of non-bloody, non-bilious vomiting and worsening abdominal pain, particularly in the right upper and lower quadrants, rated 6/10, that did not subside with tylenol. He denied other systemic symptoms such as fever, chills, or bloody stool. His labs and abdominal CT were unremarkable, and he was afebrile, stable, and eating healthy.He denies smoking, alcohol, or drug use and has no surgical history. A prior colonoscopy on 11/18/24 showed mild nonspecific colitis with negative biopsies for appendicitis but recently was. Previous hospitalization revealed exacerbation and was treated with IV fluids, hydromorphone, ondansetron, Rocephin, and Flagyl, resulting in significant symptom improvement. Patient follows with Dr. Avery as primary GI and PCP Dr. Hernandez with [facility]. PMH/PSH:seasonal allergy, asthma and irritable bowel disease (IBD) diagnosed in 2018, newly diagnosed ulcerative colitis 02/03 - Patient seen and examined at the bedside. GI consulted. Started sulfasalazine b.i.d.. 02/05 - patient seen and examined. Patient was doing fine in the a.m., reports severe pain around 11:00 a.m., abdomen soft and hyperactive. Repeat CT scan with IV contrast shows enteritis. One dose of 0.25 mg hydromorphone IV given. NPO except ice chips. 02/06- patient seen and examined. Labs unremarkable. Patient refused IV Solu- Medrol, explained the importance of IV steroids in treatment of UC flare-up. GI recommended Lomotil and cholestyramine b.i.d.. 02/07 - patient seen and examined. Reports pain, labs wnl. Objective vital signs Vital Sign Date Time Temp Pulse Resp B/P (MAP) Pulse Ox O2 Delivery O2 Flow Rate FiO2 02/07/25 12:41 98.6 62 18 137/67 (90) 95 98.6 02/07/25 12:06 Room Air 0.0 02/07/25 12:06 21 Total Intake and Output 02/06/25 02/06/25 02/07/25 15:00 23:00 07:00 Intake Total 220 ml 120 ml 1800 ml Balance 220 ml 120 ml 1800 ml medications Current Medications Medications Dose Ordered Sig/Jad Route Start Time Stop Time Status Last Admin Dose Admin Sodium Chloride 1,000 ml @ 60 mls/hr [id number] IV 02/02/25 20:45 02/07/25 00:26 60 MLS/HR Acetaminophen/ Hydrocodone Bitart 1 tab Q4HP PRN PO 02/02/25 20:45 02/05/25 09:12 1 TAB Ondansetron HCl 4 mg Q4HP PRN IV 02/02/25 20:45 Acetaminophen 650 mg Q6HP PRN PO 02/02/25 20:45 02/06/25 09:08 650 MG Nitroglycerin 0.4 mg Q5MINP PRN SL 02/02/25 20:45 Albuterol 2.5 mg Q6HWA NEB 02/03/25 12:00 02/07/25 12:06 2.5 MG Loratadine 10 mg DAILY PO 02/03/25 10:00 Hold 02/05/25 09:03 10 MG Pantoprazole Sodium 40 mg DAILY IV 02/03/25 10:00 02/07/25 09:21 40 MG Sucralfate 1 gm BID@0600,2200 PO 02/03/25 22:00 02/07/25 05:28 1 GM Dicyclomine HCl 10 mg BID PO 02/03/25 10:00 02/07/25 09:21 10 MG Mesalamine 1 gm HS TX 02/03/25 22:00 Methylprednisolone Sodium Succinate 20 mg BID IV 02/03/25 22:00 02/07/25 09:22 20 MG Metronidazole 100 ml @ 100 mls/hr Q8HR IV 02/03/25 22:00 02/07/25 14:02 100 MLS/HR Folic Acid 1 mg BID PO 02/03/25 22:00 02/07/25 09:21 1 MG Sulfasalazine 500 mg BID PO 02/03/25 22:00 02/07/25 09:21 500 MG Ergocalciferol 50,000 unit Q7D PO 02/05/25 09:15 02/06/25 09:08 50,000 UNIT Diphenhydramine HCl 25 mg Q8HP PRN PO 02/05/25 20:00 02/06/25 09:08 25 MG Saccharomyces Boulardii 250 mg DAILY PO 02/06/25 10:00 02/07/25 09:22 250 MG Diphenoxylate HCl/ Atropine 2.5 mg Q12HP PO 02/06/25 18:15 02/07/25 09:21 2.5 MG Cholestyramine Resin 4 gm Q12HR@11,23 PO 02/06/25 23:00 02/07/25 09:26 4 GM Examination Patient lying in bed, in no acute distress General: Well-built, afebrile, palor, mucosae are moist Cardiovascular: Regular S1 and S2. No murmurs, gallops or rubs. No JVD elevation. No pedal edema Respiratory: Normal B/L air entry on room air. Clear lung sounds on auscultation Abdomen: Soft, diffuse tenderness nondistended, normoactive bowel sounds, no rebound tenderness, no organomegaly, no masses Genitourinary: Deferred MSK/skin: Mobilizes 4 limbs. Skin is dry and warm Neurological: No motor, no sensitive deficits laboratory and microbiology Laboratory Tests 02/07/25 06:16 02/06/25 05:16 Test 02/07/25 06:16 Range/Units Serum Glucose 105 74-106 mg/dL Microbiology Date/Time Source Procedure Growth Status 02/05/25 17:12 Blood Blood Culture - Preliminary NO GROWTH AFTER 24 HOURS OF INCUBATION. Resulted 02/04/25 15:32 Stool Stool Culture - Preliminary Resulted 02/04/25 15:32 Stool Shiga Toxin I & II - Final Resulted Labs and/or images reviewed: Labs reviewed by me, Image(s) reviewed by me Problem List/Assessment/Plan Problem List/Assessment/Plan Bloody diarrhea secondary to possible Acute ulcerative colitis flare-up Acute gastroenteritis, likely infectious etiology ? Celiac disease ? 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 along with folic acid 1 mg p.o. b.i.d. Repeat CT abdomen with IV contrast 02/05 shows nonspecific nondilated fluid-filled small bowel loops. May be seen with ileus or enteritis Stool culture prelim negative, stool occult blood in stool WBC negative IV metronidazole IV Solu-Medrol 20 mg b.i.d. 1 g mesalamine per rectal HS daily Iron panel unremarkable Liver ultrasound shows hepatic steatosis CT abdomen shows Subcentimeter right lower quadrant lymph nodes similar to prior. ESR , CRP WNL Pantoprazole IV and Carafate b.i.d. Blood culture 02/05 negative preliminary Started cholestyramine b.i.d. and Lomotil b.i.d.. Syncopal episode, likely secondary to volume depletion Orthostatic vital pending EKG WNL Echocardiogram shows LVEF 65%, normal valves, normal RV function Continue telemetry History of seasonal allergy History of asthma-controlled Home medication loratadine 10 mg daily Albuterol scheduled nebulized treatments Started clear liquid diet Plan discussed with patient, mother at bedside in details for more than 20 minutes in which all questions have been answered Goals of care discussed for more than 20 minutes, full code status Case discussed with Dr. Drummond Plan discussed with: Patient My Orders My Orders Orders - ELVIA OSCAR RESIDENT Procedure Category Date Status Time Diphenoxylate/Atropine PHA 02/06/25 In Process Tablet (Lomotil T 18:15 Cholestyramine Powder PHA 02/06/25 In Process (Questran Powder) 23:00 Clear Liq Diet DIET 02/07/25 Transmitted Breakfast Dietary Evaluation Review Recommendations by RD: Decrease Calorie Intake Comments: 1) Encourage optimal PO intake 2) Advance to low-fiber gluten-free diet when medically feasible, pending CONSTRUCTION IRONWORKER HELPER approval 3) Refer to outpatient RD for weight management 4) Follow-up with gastroenterology 5) Continue to monitor I&O, labs, and skin integrity Expected Outcomes/Goals: 1) appetite and labs to improve 2) diet to advance 3) f/u in 3-5 days Date of Service: Feb 07, 2025 Billing Provider: MONICA DRUMMOND MD Common Visit Codes: [id number] INP/OBS CARE(HIGH) ELVIA OSCAR RESIDENT Feb 07, 2025 17:16 MONICA DRUMMOND MD Feb 07, 2025 21:39
[2025-02-08] VITALS (9 sets, daily range): BP systolic 104–133; BP diastolic 62–76; PULSE 48–88; RESP 16–20; TEMP 97.2–97.9; O2SAT 96–100
[2025-02-08 08:15] LABS: Anion Gap 12 (5-15); Carbon Dioxide 24 mmol/L (20-31); Chloride 105 mmol/L (98-107); Potassium 3.8 mmol/L (3.5-5.1); Sodium 141 mmol/L (136-145)
[2025-02-08 08:17] LABS: Calcium 10.3 mg/dL (8.7-10.4)
[2025-02-08 08:21] LABS: BUN/Creatinine Ratio 11.5 (10.0-20.0); Blood Urea Nitrogen 11 mg/dL (9-23)
[2025-02-08 08:22] LABS: CRP High Sensitivity 0.03 mg/dL (<1.0); Glucose 107 mg/dL (74-106)
[2025-02-08 08:42] LABS: Erythrocyte Sedimentation Rate 2 mm/hr (0-20)
--- NOTE | 2025-02-08 13:51 | DVHDSRES ---
Discharge Summary Date of Admission Resident Creating Document: ELVIA OSCAR RESIDENT Feb 02, 2025 at 20:32 Date of Discharge: Feb 08, 2025 Labs/Diagnostic Data: Laboratory Results Test 02/08/25 07:22 02/06/25 05:16 02/05/25 22:30 02/05/25 20:05 Erythrocyte Sedimentation Rate 2 mm/hr (0-20) Sodium Level 141 mmol/L (136-145) Potassium Level 3.8 mmol/L (3.5-5.1) Chloride Level 105 mmol/L (98-107) Carbon Dioxide Level 24 mmol/L (20-31) Anion Gap 12 (5-15) Blood Urea Nitrogen 11 mg/dL (9-23) Creatinine 0.96 mg/dL (0.700-1.30) Glomerular Filtration Rate Calc 116 mL/min (>90) BUN/Creatinine Ratio 11.5 (10.0-20.0) Serum Glucose 107 mg/dL (74-106) Calcium Level 10.3 mg/dL (8.7-10.4) C-Reactive Protein High Sensitivity 0.03 mg/dL (<1.0) White Blood Count 9.3 10^3/uL (4.4-10.8) Red Blood Count 5.12 10^6/uL (4.5-5.90) Hemoglobin 16.0 g/dL (13.5-17.5) Hematocrit 46.6 % (41.0-53.0) Mean Corpuscular Volume 91.1 fL (80.0-100.0) Mean Corpuscular Hemoglobin 31.3 pg (28.0-32.0) Mean Corpuscular Hemoglobin Concent 34.3 g/dL (32.0-36.0) Red Cell Distribution Width 13.8 % (11.8-14.3) Platelet Count 245 10^3/uL (140-450) Mean Platelet Volume 7.6 fL (6.9-10.8) Neutrophils (%) (Auto) 79.1 % (37.0-80.0) Lymphocytes (%) (Auto) 13.3 % (10.0-50.0) Monocytes (%) (Auto) 7.4 % (0.0-12.0) Eosinophils (%) (Auto) 0.1 % (0.0-7.0) Basophils (%) (Auto) 0.1 % (0.0-2.0) Neutrophils # (Auto) 7.4 10 ^3/uL (1.6-8.6) Lymphocytes # (Auto) 1.2 10 ^3/uL (0.4-5.4) Monocytes # (Auto) 0.7 10 ^3/uL (0-1.3) Eosinophils # (Auto) 0 10 ^3/uL (0-0.8) Basophils # (Auto) 0 10 ^3/uL (0-0.2) Nucleated Red Blood Cells 0.0 % Influenza Type A Antigen Negative (Negative) Influenza Type B Antigen Negative (Negative) SARS-CoV-2 Antigen (Rapid) Negative (NEGATIVE) Urine Color Yellow (Yellow) Urine Clarity Clear (Clear) Urine pH 7.0 (5.0-9.0) Urine Specific [place] 1.048 (1.001-1.035) Urine Protein Negative (Negative) Urine Ketones Negative (Negative) Urine Blood Negative /uL (Negative) Urine Nitrite Negative (Negative) Urine Bilirubin Negative (Negative) Urine Urobilinogen Normal mg/dL (Negative) Urine Leukocyte Esterase Negative /uL (Negative) Urine RBC 1 /hpf (0 - 3) Urine Microscopic WBC 1 /HPF (0-3) Urine Squamous Epithelial Cells Few /hpf (<5) Urine Bacteria None seen /hpf (None Seen) Urine Glucose Normal mg/dL (Normal) Test 02/05/25 20:01 02/05/25 05:03 02/04/25 15:32 02/04/25 05:09 Troponin I High Sensitivity < 3 ng/L (</=54) Total Bilirubin 0.5 mg/dL (0.2-1.0) Aspartate Amino Transferase (AST) < 8 U/L (13-40) Alanine Aminotransferase (ALT) 16 U/L (7-40) Alkaline Phosphatase 74 U/L (46-116) Total Protein 7.7 g/dL (5.7-8.2) Albumin 4.8 g/dL (3.2-4.8) Stool Occult Blood Negative (Negative) Stool Occult Blood Sample #3 (Negative) Stool for White Cells None seen Vitamin B12 Level 325 pg/mL (211-911) Vitamin D 25-Hydroxy 31.7 ng/mL (30.0-100) Test 02/03/25 04:24 02/02/25 13:35 02/02/25 13:23 Iron Level 113 ug/dL (65-175) Total Iron Binding Capacity 322 ug/dL (250-425) Percent Iron Saturation 35.1 % (20-55) Ferritin 89.1 ng/mL (22-322) Urine Mucus Few (None Seen) Urine Opiates Screen Neg (NEGATIVE) Urine Fentanyl Screen Neg (NEGATIVE) Urine Barbiturates Screen Neg (NEGATIVE) Urine Phencyclidine Screen Neg (NEGATIVE) Urine Amphetamines Screen Neg (NEGATIVE) Urine Benzodiazepines Screen Neg (NEGATIVE) Urine Cocaine Screen Neg (NEGATIVE) Urine Cannabinoids Screen Neg (NEGATIVE) Lipase 27 U/L (12-53) Thyroid Stimulating Hormone (TSH) 1.14 uIU/mL (0.55-4.78) Other Laboratory Tests 02/08/25 07:22 02/06/25 05:16 Brief Hx & Hospital Course: Mr. Fuentes, a 19-year-old male with a history of seasonal allergy, asthma and irritable bowel disease (IBD) diagnosed in 2019, newly diagnosed ulcerative colitis presented to the emergency department with acute abdominal pain, nausea, vomiting, and diarrhea that began earlier that day. He recently started treatment for ulcerative colitis prescribed by Dr. Avery on 01/19/25 and has been compliant with his medications but not able to tolerate oral mesalamine. On the day of presentation, he experienced a syncopal episode at home followed by two episodes of non-bloody, non-bilious vomiting and worsening abdominal pain, particularly in the right upper and lower quadrants, rated 6/10, that did not subside with tylenol. He denied other systemic symptoms such as fever, chills, or bloody stool. His labs and abdominal CT were unremarkable, and he was afebrile, stable, and eating healthy.He denies smoking, alcohol, or drug use and has no surgical history. A prior colonoscopy on 11/18/24 showed mild nonspecific colitis with negative biopsies for appendicitis but recently was. Previous hospitalization revealed exacerbation and was treated with IV fluids, hydromorphone, ondansetron, Rocephin, and Flagyl, resulting in significant symptom improvement. Patient follows with Dr. Avery as primary GI and PCP Dr. Hernandez with [facility]. During the hospitalization, initial CT scan abdomen showed No acute abdominal or pelvic findings. Subcentimeter right lower quadrant lymph nodes similar to prior. GI was consulted, stool studies were sent. GI started sulfasalazine 500 mg b.i.d. along with folic acid. Stool culture was negative, stool occult blood negative, stool WBC negative. Solu-Medrol was started at 20 mg b.i.d.. Iron panel was unremarkable, liver ultrasound showed hepatic steatosis. ESR CRP WNL. Pantoprazole and Carafate was also started. Started IV metronidazole. Patient reported brief episodes of severe intractable pain, for which repeat CT abdomen 02/05 was completed which showed nonspecific nondilated fluid-filled small bowel loops may be seen with ileus or enteritis. We continued IV metronidazole, p.o. sulfasalazine b.i.d. along with IV Solu-Medrol at this time. Started clear liquid diet, patient tolerated well and advanced diet to full liquid diet. For the syncopal episode, orthostatic vitals were unremarkable. EKG WNL. Echocardiogram shows LVEF 65%, normal valves, normal RV function. 02/08: Patient is hemodynamically stable, clinically stable therefore is being discharged home with the following instructions: Continue sulfasalazine 500 mg twice daily Continue folic acid supplementation Continue prednisone 40 mg daily Follow up with GI on 02/22 as outpatient at 9:45 a.m. Follow up with [facility] Follow up with PCP Discussions were made with patient and patient's mother at bedside daily regarding plan of care, outcomes and prognosis. Discharge planning was also completed at bedside. Patient and mother agreed to discharge planning. Consults/Reason for consult GI consulted for ulcerative colitis flare-up Operations or Procedures ORDERING PHYSICIAN: ELVIA OSCAR RESIDENT PROCEDURE(s): ABPEL - CT AB PELVIS W WO CON-IV ONLY REASON: severe intractable abd pain, ulcerative colitis flare ORDER NUMBER(s): [id number], ACCESSION NUMBER(s): [id number] CLINICAL INFORMATION: 19 years old, Male; severe intractable abd pain, ulcerative colitis flare. TECHNIQUE: Axial CT images of the abdomen and pelvis were obtained prior to and after the uneventful administration of 100 mL Omnipaque 300 IV contrast. Coronal and sagittal reformatted images were obtained, reviewed, and stored. All CT scans at this medical facility are performed using dose modulation techniques as appropriate to a performed exam including the following: Automated exposure control was utilized; adjustment of the MA and/or KV according to patient size; and use of iterative reconstruction technique. CTDIvol = 14.18 mGy DLP = 1569.48 mGy-cm COMPARISON: CT CT AB PEL WITH IV CON ONLY on DOS: 11/15/24 FINDINGS: Lung bases: Lung bases are clear. Liver: Unremarkable. No abnormal density or focal lesion. Biliary: No calcified gallstones or biliary ductal dilatation. Spleen: Unremarkable. Pancreas: Unremarkable. No inflammatory changes, ductal dilatation, or mass identified. Adrenal glands: Unremarkable. No mass. Kidneys: No hydronephrosis or mass. No renal or ureteral calculi. Aorta/Vascular: No aneurysm or significant calcification. Retroperitoneum: No mass or lymphadenopathy. Bowel/mesentery: Mildly distended fluid-filled small bowel loops. No small bowel obstruction. Appendix is visualized and measures up to in diameter, at the upper limits of normal. No periappendiceal stranding or free fluid visualized. Small subcentimeter mesenteric lymph nodes in the right lower quadrant, similar to prior exams. Scattered colonic diverticula without adjacent inflammatory changes to suggest diverticulitis. Pelvic organs: Grossly unremarkable. Bladder: Unremarkable. No mass. Abdominal wall: No mass or hernia. Bones: No acute fracture or focal intraosseous lesion. IMPRESSION: 1. Nonspecific nondilated fluid-filled small bowel loops. Findings may be seen with ileus or enteritis in the appropriate clinical setting. No small bowel obstruction. 2. Appendix measures at the upper limits of normal in diameter, similar to prior CT exams. No periappendiceal inflammatory changes are seen to suggest acute appendicitis, although correlation with clinical findings is needed. 3. Scattered colonic diverticula without adjacent inflammatory changes to suggest diverticulitis. 4. Additional findings as described above. ATED BY: DEBORAH COSTA DO DICTATED DATE/TIME: 02/05/25 134 SIGNED BY: DEBORAH COSTA DO SIGNED DATE/TIME: 02/05/25 134 CC: Condition at Discharge: Stable Final Diagnosis/Problems List Bloody diarrhea secondary to possible Acute ulcerative colitis flare-up Acute gastritis likely infectious etiology Acute ulcerative colitis flare-up Syncopal episode, likely secondary to volume depletion ? Celiac disease Diverticulosis ? Inflammatory arthritis without deformity History of IBS diagnosed 2019 [place] History of seasonal allergy History of asthma-controlled Discharge Disposition: Home Discharge Instruct/Medications Diet: See Comment Diet comment: Full liquid diet, advanced as tolerated Activity: Light activity Follow Up/Referral: Follow up with [facility] salesperson on 02/22 at 9:45 a.m. as outpatient Follow up with [facility] clinic Follow up with primary care physician within 7 days Medications: Prednisone 40 mg for next 2 weeks Sulfasalazine 500 mg twice daily Discharge Statement: "Patient was advised to return to the ER or call 911 if any headaches, dizziness, shortness of breath, chest pain, abdominal pain, bleeding, fevers, or worsening of medical condition. Patient was counseled about treatment plan, medications, possible side effects, patientverbalized understanding. All questions were answered to the best of my ability. This discharge took greater then 30 minutes in planning, reviewing documentation, counseling the patient, and discussing with other team members." ASSESSMENT ASSESSMENT Assessment Bloody diarrhea secondary to possible Acute ulcerative colitis flare-up Acute ulcerative colitis flare-up Syncopal episode, likely secondary to volume depletion Diverticulosis Date of Service: Feb 08, 2025 Billing Provider: MONICA GARCIA MD Common Visit Codes: 33498-ZMP/OBS DISCH DAY >30min ELVIA OSCAR RESIDENT Feb 08, 2025 13:51 MONICA GARCIA MD Feb 08, 2025 22:25
[2025-02-08] MEDS ORDERED: SUL500T PO (14:09)
[2025-02-08] MEDS ORDERED: CHL4PW PO (14:09)
[2025-02-08] MEDS ORDERED: PANT40T PO (14:09)
[2025-02-08] MEDS ORDERED: FOLI-119 PO (14:09)
[2025-02-08] MEDS ORDERED: PRED20TA2 PO (14:09)
--- NOTE | 2025-02-08 14:55 | DVHPN2 ---
Progress Note - Dictate Date Seen: Feb 08, 2025 (Time of visit 12 30 p.m.) Has the PT tested + for MRSA If YES, has PT been informed?: No Medical Necessity Reason Pt with a Central, PICC or Fol: No Subjective Pt is clinically stable Tolerating diet Diarrhea and rectal bleeding resolving Abdominal pain improving vital signs Vital Sign Date Time Temp Pulse Resp B/P (MAP) Pulse Ox O2 Delivery O2 Flow Rate FiO2 02/08/25 13:00 97.8 88 16 133/76 (95) 98 97.8 02/08/25 11:07 Room Air 0.0 02/08/25 11:07 21 Total Intake and Output 02/07/25 02/07/25 02/08/25 15:00 23:00 07:00 Intake Total 490 ml 1011 ml Balance 490 ml 1011 ml medications Current Medications Medications Dose Ordered Sig/Jad Route Start Time Stop Time Status Last Admin Dose Admin Sodium Chloride 1,000 ml @ 60 mls/hr [id number] IV 02/02/25 20:45 02/07/25 18:30 60 MLS/HR Acetaminophen/ Hydrocodone Bitart 1 tab Q4HP PRN PO 02/02/25 20:45 02/07/25 17:13 1 TAB Ondansetron HCl 4 mg Q4HP PRN IV 02/02/25 20:45 Acetaminophen 650 mg Q6HP PRN PO 02/02/25 20:45 02/06/25 09:08 650 MG Nitroglycerin 0.4 mg Q5MINP PRN SL 02/02/25 20:45 Albuterol 2.5 mg Q6HWA NEB 02/03/25 12:00 02/08/25 11:07 2.5 MG Loratadine 10 mg DAILY PO 02/03/25 10:00 Hold 02/05/25 09:03 10 MG Pantoprazole Sodium 40 mg DAILY IV 02/03/25 10:00 02/08/25 09:20 40 MG Sucralfate 1 gm BID@0600,2200 PO 02/03/25 22:00 02/08/25 05:27 1 GM Dicyclomine HCl 10 mg BID PO 02/03/25 10:00 02/08/25 09:20 10 MG Mesalamine 1 gm HS VT 02/03/25 22:00 Methylprednisolone Sodium Succinate 20 mg BID IV 02/03/25 22:00 02/08/25 09:19 20 MG Metronidazole 100 ml @ 100 mls/hr Q8HR IV 02/03/25 22:00 02/08/25 05:27 100 MLS/HR Folic Acid 1 mg BID PO 02/03/25 22:00 02/08/25 09:20 1 MG Sulfasalazine 500 mg BID PO 02/03/25 22:00 02/08/25 09:21 500 MG Ergocalciferol 50,000 unit Q7D PO 02/05/25 09:15 02/06/25 09:08 50,000 UNIT Diphenhydramine HCl 25 mg Q8HP PRN PO 02/05/25 20:00 02/08/25 11:51 25 MG Saccharomyces Boulardii 250 mg DAILY PO 02/06/25 10:00 02/08/25 09:21 250 MG Diphenoxylate HCl/ Atropine 2.5 mg Q12HP PO 02/06/25 18:15 02/08/25 09:21 2.5 MG Cholestyramine Resin 4 gm Q12HR@,23 PO 02/06/25 23:00 02/07/25 23:36 4 GM objective Patient lying in bed, in no acute distress General: Well-built, afebrile, palor, mucosae are moist Cardiovascular: Regular S1 and S2. No murmurs, gallops or rubs. No JVD elevation. No pedal edema Respiratory: Normal B/L air entry on room air. Clear lung sounds on auscultation Abdomen: Soft, nondistended, normoactive bowel sounds, no rebound tenderness, no organomegaly, no masses Genitourinary: Deferred MSK/skin: Mobilizes 4 limbs. Skin is dry and warm Neurological: No motor, no sensitive deficits laboratory and microbiology Laboratory Tests 02/08/25 07:22 02/06/25 05:16 Test 02/08/25 07:22 Range/Units Serum Glucose 107 H 74-106 mg/dL Problems(with codes): (1) Nonspecific colitis (2) Colitis (3) Intractable abdominal pain (4) Intractable nausea and vomiting Prognosis Plan Discharge planning is in progress Patient has a follow up appointment in my office in two weeks He is going to be discharged home on mesalamine and prednisone Patient will be counseled about discontinuing alcohol smoking marijuana Ongoing further treatment management will be discussed in the clinic Dietary Evaluation Review Recommendations by RD: Decrease Calorie Intake Comments: 1) Encourage optimal PO intake 2) Advance to low-fiber gluten-free diet when medically feasible, pending DOMESTIC TECHNICIAN approval 3) Refer to outpatient RD for weight management 4) Follow-up with gastroenterology 5) Continue to monitor I&O, labs, and skin integrity Expected Outcomes/Goals: 1) appetite and labs to improve 2) diet to advance 3) f/u in 3-5 days Plan discussed with: Other (Dr Martinez Rutledge) GLENNY HOYT MD Feb 08, 2025 14:55
== END 2025-02-08 15:05 | disposition home or self-care (01) | DRG 241 ==
LOC: ER 12:34 → OVERFLOW 20:32 → WEST WING 02-03 18:02
PROVIDERS: ADMIT Internal Medicine Geriatric Medicine; ATTEND Internal Medicine Geriatric Medicine
DX: K29.70 Gastritis, unspecified, without bleeding (principal); A09 Infectious gastroenteritis and colitis, unspecified; K51.90 Ulcerative colitis, unspecified, without complications; E80.6 Other disorders of bilirubin metabolism; K21.9 Gastro-esophageal reflux disease without esophagitis; Z20.822 Contact with and (suspected) exposure to COVID-19; E86.0 Dehydration; J45.909 Unspecified asthma, uncomplicated; K57.90 Diverticulosis of intestine, part unspecified, without perforation or abscess without bleeding; E86.9 Volume depletion, unspecified; K90.0 Celiac disease; Z82.49 Family history of ischemic heart disease and other diseases of the circulatory system; Z80.42 Family history of malignant neoplasm of prostate; Z88.2 Allergy status to sulfonamides; Z88.5 Allergy status to narcotic agent; Z79.899 Other long term (current) drug therapy
CPT/HCPCS: 36415; 74176; 74178; 76705; 80048; 80053; 80307; 81001; 82270; 82306; 82607; 82728; 83540; 83550; 83690; 84443; 84484; 85025; 85048; 85652; 86141; 87040; 87045; 87177; 87426; 87427; 87804; 93005; 93306; 94640; 96361; 96374; 96375; G0378; J2405; J2470; J3490

== ENCOUNTER → 2025-03-14 | Day surgery (SDC) | payer MEDICAID ==
[2025-03-10 10:04] LABS: Hematocrit 49.4 % (41.0-53.0); Hemoglobin 17.1 g/dL (13.5-17.5); Mean Corpuscular Hemoglobin 31.3 pg (28.0-32.0); Mean Corpuscular Volume 90.1 fL (80.0-100.0); Nucleated Red Blood Cells % 0.1 %
[2025-03-10 10:17] LABS: INR 0.99 (0.9-1.15); Partial Thromboplastin Time 27.3 SEC (24.5-34.5); Prothrombin Time 10.5 sec (9.3-11.8)
[2025-03-10 10:25] LABS: Alkaline Phosphatase 83 U/L (46-116); Anion Gap 8 (5-15); BUN/Creatinine Ratio 16.5 (10.0-20.0); Blood Urea Nitrogen 17 mg/dL (9-23); Calcium 10.2 mg/dL (8.7-10.4); Carbon Dioxide 29 mmol/L (20-31); Chloride 104 mmol/L (98-107); Glucose 89 mg/dL (74-106); Potassium 4.4 mmol/L (3.5-5.1); Sodium 141 mmol/L (136-145); Total Protein 8.0 g/dL (5.7-8.2)
[2025-03-10 10:26] LABS: Bilirubin, Total 0.6 mg/dL (0.2-1.0)
[2025-03-10 10:28] LABS: Alanine Aminotransferase 51 U/L (7-40); Albumin 5.0 g/dL (3.2-4.8)
[~2025-03-14] VITALS: Ht 182.9 cm; Wt 90.7 kg
[~2025-03-14] MED LIST changes: +ACET325T82 PO; +BUDE9TAB2 PO; -CIPR0.3S67 OP; +DICY10CA PO; +FAMO20TA10 PO; +FOLI-119 PO; -IBUP1TAB5 PO; +LOPE-20 PO; -MELO7.5T7 PO; -MESA1.2T PO; -METH4PAK PO; -MONT10TA23 PO; -OLOP0.2S14 OP; +PANT40T PO; +SODIUM CHLORIDE LOCK 10 ML ONE; +SUCR1TAB31 OR; +SUL500T PO; -TOB03OS OP
[2025-03-14 13:12] VITALS: PULSE 83; RESP 15; O2SAT 99
[2025-03-14] MEDS: LIDOCAINE VISCOUS 2% 15ML UD ONE (13:17)
[2025-03-14] MEDS: fentaNYL CITRATE 100 MCG/2 ML VL ONE (13:19)
[2025-03-14] MEDS: MIDAZOLAM HCL 5 MG/ML-1ML VIAL ONE (13:19)
[2025-03-14] MEDS: diphenhdrAMINE HCL 50 MG/1 ML VL ONE (13:19)
[2025-03-14 13:29] VITALS: TEMP 97.1; O2SAT 100
--- NOTE | 2025-03-14 13:44 | DVHOP2 ---
Operative Report DATE OF OPERATION: 03/14/25 PROCEDURE: Upper Endoscopy with biopsy. PREOPERATIVE INDICATION: The patient is a 19 -year-old male undergoing endoscopy for nausea and dyspepsia POSTOPERATIVE DIAGNOSES: 1. Patient had a 1-2 cm sliding-type hiatal hernia with slightly irregular squamocolumnar junction grade a erosive esophagitis 2. Mild gastritis with some hyperemia and erythema otherwise normal examination of the 2nd and 3rd part of the duodenum PROCEDURE PERFORMED BY: Glenny Avery GI NURSE: Steven SCOPE: Olympus videoendoscope. ASA CLASS: 2 PREOPERATIVE MEDICATIONS: Versed 4 mg, Fentanyl 100 mcg, Benadryl 50 mg I administered moderate sedation throughout this _8_ minutes procedure. An independent trained observer pushed medications at my direction, and monitored the patient's level of consciousness and physiological status throughout. PROCEDURE IN DETAIL: After obtaining an informed consent, the patient was placed on left lateral decubitus position. The patient was then sedated with the above medications. A bite block was placed between his teeth. The endoscope was then passed through the oropharynx, into the esophagus, and through the stomach and pylorus up to the second and third part of the duodenum. The endoscope was then withdrawn. The second and 3rd part of the duodenum were normal and the duodenal bulb showed minimal duodenitis. Duodenal biopsies were obtained The pre-pyloric area antrum and body of the stomach showed mild gastritis and there was some hyperemia erythema and mild gastropathy and gastric biopsies were obtained On retroflexion the fundus cardia and angularis were normal. The endoscope was then withdrawn into the distal esophagus. Patient had a 1-2 cm sliding-type hiatal hernia with slightly irregular squamocolumnar junction grade a erosive esophagitis. GE junction biopsies were obtained. The remaining distal and proximal esophagus and oropharynx were unremarkable. Via The patient tolerated the procedure well without difficulty. COMPLICATIONS : None SPECIMENS: Duodenal biopsies Gastric biopsies GE junction biopsies DISPOSITION: Stable D/C to home PLAN: 1. Await for biopsy result 2. Will place pt on Protonix 40 mg p.o. q.a.m. 3. Carafate 1 g p.o. q.h.s. or twice a day 4. DC aspirin NSAIDs smoking alcohol 5. Resume GI soft diet advance as tolerated 6. Outpatient follow up with me in 4-6 weeks to review results and discuss further management GLENNY AVERY MD Mar 14, 2025 13:44
[2025-03-14 13:50] VITALS: BP 115/60; PULSE 73; RESP 14; O2SAT 99
== END | disposition home or self-care (01) ==
LOC: GI 11:30
PROVIDERS: ATTEND Internal Medicine Gastroenterology
DX: K29.50 Unspecified chronic gastritis without bleeding (principal); K20.90 Esophagitis, unspecified without bleeding; K44.9 Diaphragmatic hernia without obstruction or gangrene; F17.200 Nicotine dependence, unspecified, uncomplicated; R10.13 Epigastric pain; J45.909 Unspecified asthma, uncomplicated; Z98.890 Other specified postprocedural states; Z88.8 Allergy status to other drugs, medicaments and biological substances
CPT/HCPCS: 36415; 43239; 80053; 85025; 85610; 85730; 88305; 88312; 88342; J1200; J2250; J3010; J7030

== ENCOUNTER 2025-04-11 11:13 | Outpatient (CLI) | payer MEDICAID ==
[~2025-04-11 11:13] MED LIST changes: -SODIUM CHLORIDE LOCK 10 ML ONE
[2025-04-11 12:20] LABS: Hematocrit 47.3 % (41.0-53.0); Hemoglobin 16.1 g/dL (13.5-17.5); Mean Corpuscular Hemoglobin 31.2 pg (28.0-32.0); Mean Corpuscular Volume 91.6 fL (80.0-100.0); Nucleated Red Blood Cells % 0.2 %
[2025-04-11 12:42] LABS: Albumin 4.8 g/dL (3.2-4.8); Alkaline Phosphatase 68 U/L (46-116); Anion Gap 9 (5-15); BUN/Creatinine Ratio 9.4 (10.0-20.0); Bilirubin, Total 0.6 mg/dL (0.2-1.0); Blood Urea Nitrogen 9 mg/dL (9-23); Calcium 9.7 mg/dL (8.7-10.4); Carbon Dioxide 27 mmol/L (20-31); Chloride 104 mmol/L (98-107); Glucose 84 mg/dL (74-106); Potassium 4.2 mmol/L (3.5-5.1); Sodium 140 mmol/L (136-145); Total Protein 7.4 g/dL (5.7-8.2)
[2025-04-11 12:54] LABS: Alanine Aminotransferase 51 U/L (7-40)
== END 2025-04-11 17:00 | disposition home or self-care (01) ==
LOC: LAB 11:13
PROVIDERS: ATTEND Internal Medicine Gastroenterology
DX: K51.90 Ulcerative colitis, unspecified, without complications (principal); R19.7 Diarrhea, unspecified
CPT/HCPCS: 36415; 80053; 84443; 85025

== ENCOUNTER 2025-07-04 11:00 | Outpatient (CLI) | payer MEDICAID ==
[2025-07-04 11:34] LABS: Hematocrit 42.0 % (41.0-53.0); Hemoglobin 14.5 g/dL (13.5-17.5); Mean Corpuscular Hemoglobin 31.3 pg (28.0-32.0); Mean Corpuscular Volume 90.4 fL (80.0-100.0); Nucleated Red Blood Cells % 0.1 %
[2025-07-04 11:51] LABS: Alanine Aminotransferase 34 U/L (7-40); Albumin 4.5 g/dL (3.2-4.8); Alkaline Phosphatase 72 U/L (46-116); Anion Gap 11 (5-15); BUN/Creatinine Ratio 11.5 (10.0-20.0); Blood Urea Nitrogen 12 mg/dL (9-23); Calcium 9.4 mg/dL (8.7-10.4); Carbon Dioxide 25 mmol/L (20-31); Chloride 104 mmol/L (98-107); Glucose 76 mg/dL (74-106); Potassium 3.9 mmol/L (3.5-5.1); Sodium 140 mmol/L (136-145); Total Protein 7.5 g/dL (5.7-8.2)
[2025-07-04 11:52] LABS: Bilirubin, Total 0.7 mg/dL (0.2-1.0)
[2025-07-04 16:19] LABS: Lipase 29 U/L (12-53)
== END 2025-07-04 17:00 | disposition home or self-care (01) ==
LOC: LAB 11:00
PROVIDERS: ATTEND Internal Medicine Gastroenterology
DX: K51.919 Ulcerative colitis, unspecified with unspecified complications (principal); R10.84 Generalized abdominal pain; R19.7 Diarrhea, unspecified
CPT/HCPCS: 36415; 80053; 83690; 85025; 86141

== ENCOUNTER 2025-07-25 10:27 | Emergency (ER) | payer MEDICAID ==
[~2025-07-25] VITALS: Ht 419.1 cm; Wt 93.5 kg
--- NOTE | 2025-07-25 11:08 | ED.PDOC ---
Musculoskeletal HPI Comments 20y M who presents to the ED for chief complaint of extremity pain. Pt states he had colonoscopy and had IV placed on the R forearm this AM at 0800. Pt states he was at home after being discharged from procedure at approximately 0930 and started to have a "cold and burning " sensation and pain to the R forearm associated chills and came to the ED for evaluation. Pt in the ED, otherwise has good range of motion and no noted redness or swelling is noted. Pt otherwise has stable vitals in the ED. Chief Complaint: Upper Extremity Time Seen by MD: 11:03 Primary Care Provider: UNKNOWN Reviewed Notes: Nurses Notes, Medications, Allergies Allergies: Coded Allergies: Morphine (Verified Allergy, Unknown, 08/28/24) Promethazine (Unverified Allergy, Unknown, 11/09/16) Uncoded Allergies: ENVIRONMENTlal (Allergy, Severe, 02/05/23) beans (Allergy, Severe, 02/05/23) Home Meds Active Scripts Pantoprazole Sodium Sesquihydr (Pantoprazole Sodium) 40 Mg Tab, 40 MG PO DAILY for 30 Days, #30 TAB 0 Refills Prov:ELVIA OSCAR RESIDENT 02/08/25 Sulfasalazine (Azulfidine) 500 Mg Tb, 500 MG PO BID for 30 Days, #60 TAB Prov:ELVIA OSCAR RESIDENT 02/08/25 Folic Acid (Folic Acid) 1 Mg Tab, 1 MG PO DAILY for 30 Days, #30 TAB Prov:ELVIA OSCAR RESIDENT 02/08/25 Reported Medications Budesonide (Budesonide ER) 9 Mg Tab, 3 MG PO DAILY, TAB 03/10/25 Dicyclomine Hcl (BENTYL CAPSULE) 10 Mg Cp, 1 CAP PO TID, #90 CAP 3 Refills 03/10/25 Famotidine (PEPCID TABLET) 20 Mg Tb, 1 TAB PO BID, #60 TAB 3 Refills 03/10/25 Sucralfate (CARAFATE) 1 Gm Tab, 1 GM OR DAILY, TAB 03/10/25 Loperamide Hcl ([facility] ANTI-DIARRHEAL) 2 Mg Cap, 2 MG PO PRN, CAP 03/10/25 Acetaminophen (Apap) 325 Mg Tab, 500 MG PO PRN, TAB 03/10/25 Loratadine (CLARITIN TABLET) 10 Mg Tb, 1 TAB PO DAILYPRN 08/28/24 Albuterol Sulfate (Albuterol Sulfate Hfa) 108 Mcg/Act Aer, 2 PUFF INH Q6HPRN PRN for SHORTNESS OF BREATH 08/28/24 Information Source: Patient, Relative (Mother) Mode of Arrival: Ambulatory Brought in by: MOTHER Location: Right Extremity Location: Forearm Timing: Hours Past Medical History PAST MEDICAL HISTORY: Asthma, Denies Surgical History: Denies all surgeries Family History Family History: Reviewed,noncontributory to illness, Family hx of heart bhumi Social History Smoker: Non-Smoker Alcohol: Denies ETOH Use Drugs: Denies Drug Use Lives In: Home Constitutional: denies: chills, diaphoresis, fatigue, fever, malaise, sweats, weakness, others EENTM: denies: blurred vision, double vision, ear bleeding, ear discharge, ear drainage, ear pain, ear ringing, eye pain, eye redness, hearing loss, mouth pain, mouth swelling, nasal discharge, nose bleeding, nose congestion, nose pain, photophobia, tearing, throat pain, throat swelling, voice changes, others Respiratory: denies: cough, hemoptysis, orthopnea, SOB at rest, shortness of breath, SOB with excertion, stridor, wheezing, others Cardiovascular: denies: chest pain, dizzy spells, diaphoresis, Dyspnea on exertion, edema, irregular heart beat, left arm pain, lightheadedness, palpitati ons, PND, syncope, others Gastrointestinal: denies: abdomen distended, abdominal pain, blood streaked bowels, constipated, diarrhea, dysphagia, difficulty swallowing, hematemesis, melena, nausea, poor appetite, poor fluid intake, rectal bleeding, rectal pain, vomiting, others Genitourinary: denies: burning, dysuria, flank pain, frequency, hematuria, incontinence, penile discharge, penile sore, pain, testicle pain, testicle swelling, urgency, others Neurological: denies: dizziness, fainting, headache, left sided numbness, left sided weakness, numbness, paresthesia, pre-existing deficit, right sided numbness, right sided weakness, seizure, speech problems, tingling, tremors, weakness, others Musculoskeletal: reports: joint pain (R WRIST); denies: back pain, gout, joint swelling, muscle pain, muscle stiffness, neck pain, others Integumetry: denies: bruises, change in color, change in hair/nails, dryness, laceration, lesions, lumps, rash, wounds, others Allergic/Immunocompromised: denies: Difficulty Healing, Frequent Infections, Hives, Itching, others Hematologic/Lymphatic: denies: anemia, blood clots, easy bleeding, easy bruising, swollen glands, others Endocrine: denies: excessive hunger, excessive sweating, excessive thirst, excessive urination, flushing, intolerance to cold, intolerance to heat, unexplained weight gain, unexplained weight loss, others Psychiatric: denies: anxiety, bipolar disorder, depression, hopeless, panic disorder, schizophrenia, sleepless, suicidal, others All Other Systems: Reviewed and Negative Physical Exam General Appearance: No Apparent Distress, Normal HEENT: Normal ENT Inspection, Pharynx Normal, TMs Normal Neck: Full Range of Motion, Non-Tender, Normal, Normal Inspection Respiratory: Chest Non-Tender, Lungs Clear, No Accessory Muscle Use, No Respiratory Distress, Normal Breath Sounds Cardiovascular: No Murmur, No Gallop, Regular Rate/Rhythm Breast Exam: Deferred Gastrointestinal: No Organomegaly, Non Tender, No Pulsatile Mass, Normal Bowel Sounds, Soft Genitalia: Deferred Pelvic: Deferred Rectal: Deferred Extremities: Other (NO TTP, CAP REFILL LESS THAN 3, CMS INTACT) Musculoskeletal : Apperance: Normal Neurologic: Alert, label drier II-XII nml as Tested, No Motor Deficits, Normal Affect, Normal Mood, No Sensory Deficits Cerebellar Function: Normal Reflexes: Normal Skin: Dry, Normal Color, Warm Lymphatic: No Adenopathy Was a procedure done? Was a procedure done?: No Differential Diagnosis EXT Differential Diagnosis: Sprain, Strain Other Differential Diagnosis MUSCLE SPASM X-Ray, Labs, Meds, VS Vital Signs Date Time Temp Pulse Resp B/P (MAP) Pulse Ox O2 Delivery O2 Flow Rate FiO2 07/25/25 11:20 68 16 97 Room Air 07/25/25 11:20 98.7 78 16 126/78 (94) 98 98.7 07/25/25 10:28 98.1 89 18 135/94 98 98.1 X-Ray, Labs, Meds, VS Comment Patient arrives alert and oriented, ABC's intact, afebrile, vital signs stable, saturating well in room air On reevaluation, patient had symptomatic improvement. Patient is stable for discharge at this time. Recommended conservative treatment for now. Ice packs as needed and [id number] Tylenol ibuprofen External notes reviewed. Test results and diagnostic imaging interpreted. All diagnostic findings, discharge care, education and instructions provided Follow-up with PCP in 2 to 3 days Patient verbalized understanding and agreed to treatment plan Vital signs stable, afebrile, no acute distress noted Patient ambulatory with strong steady gait Advised to return precautions for any new or worsening symptoms, return to ER immediately for re-evaluation Patient is aware that the purpose of this visit was for an acute medical emergency requiring emergent stabilization. Chronic conditions, including malignancies have not been ruled out. Patient is instructed to follow up with PCP as directed and discharge instructions for continued care and workup. If unable to arrange follow-up, patient is to return to the emergency department for reassessment. Patient (parent or legal guardian if applicable) was given verbal and written discharge instructions and acknowledges understanding. Additional MDM Review of External, Non-ED records: External records reviewed. Discussion with independent historian (EMS, family) history obtained from the patient/parents (if applicable) at bedside Chronic conditions affecting care: None Social determinants of health affecting care: None Consideration of admission (observation or admission): I considered escalation of care to admission for this patient, however given the reassuring workup, the patient is safe for outpatient management. Discussion with the Radiology: No Tests considered but not performed: Prescription medication considered but not given: 12 lead EKG interpretation: Time of 1ST Reevaluation: 11:30 Reevaluation 1ST: Improved Patient Education/Counseling: Diagnosis, Treatment Family Education/Counseling: Diagnosis, Treatment Departure 1 Departure Time of Disposition: 11:08 Impression: Primary Impression: IV infiltration Qualified Codes: T80.1XXA - Vascular complications following infusion, transfusion and therapeutic injection, initial encounter Disposition: HOME / SELF CARE / HOMELESS Condition: Stable Discharged With: Self Critical Care Note Critical Care Time?: No Stability Stability form required: No Heart Score Heart Score: Heart Score Response (Comments) Value History N/A 0 EKG N/A 0 Age N/A 0 Risk Factors N/A 0 Troponin N/A 0 Total 0 I personally scribed for DAYSI MEHTA NP ([email or web address]) on 07/25/25 at 11:08. Electronically submitted by Rodney Lemon (EDD). DAYSI MEHTA NP Jul 25, 2025 11:08
[2025-07-25 11:20] VITALS: BP 126/78; PULSE 68; RESP 16; TEMP 98.7; O2SAT 97
== END 2025-07-25 11:24 | disposition home or self-care (01) ==
LOC: ER 10:27
DX: T80.89XA Other complications following infusion, transfusion and therapeutic injection, initial encounter (principal); J45.909 Unspecified asthma, uncomplicated; Z79.899 Other long term (current) drug therapy; Z88.5 Allergy status to narcotic agent; Y83.9 Surgical procedure, unspecified as the cause of abnormal reaction of the patient, or of later complication, without mention of misadventure at the time of the procedure; Y92.89 Other specified places as the place of occurrence of the external cause